=== PATIENT | male | born 1950 | race Caucasian/White ===

== ENCOUNTER 2019-09-18 11:03 | Inpatient (IN) | payer OTHER, SELFPAY ==
[2019-09-18] VITALS (12 sets, daily range): BP systolic 118–149; BP diastolic 51–80; PULSE 70–88; RESP 13–36; TEMP 36.3–36.6; O2SAT 91–97; BMI 34.9
--- NOTE | ~2019-09-18 | XR_ITS ---
EXAMINATION: XR chest 2V DATE: 09/21/2019 10:39 INDICATION: Pulmonary edema TECHNIQUE: PA and lateral views of the chest are obtained. COMPARISON: 09/18/2019 FINDINGS: The previously described interstitial opacities persist but have decreased. There is minima l airspace opacity of the right lung base. Small pleural effusions are present. There is no pneumotho rax. Cardiomegaly is noted. There is moderate thoracic spondylosis. IMPRESSION: 1. Cardiomegaly with improving pulmonary edema. 2. Improving right basilar airspace opacity, consistent with resolving atelectasis or pneumonia. Reviewed, dictated and finalized at location A. IMPRESSION: 1. Cardiomegaly with improving pulmonary edema. 2. Improving right basilar airspace opacity, consistent with resolving atelecta sis or pneumonia.
--- NOTE | ~2019-09-18 | XR_ITS ---
XR chest 2V DATE: 09/18/2019 11:52 INDICATION: Shortness of breath TECHNIQUE: AP and lateral views COMPARISON: 03/30/2018 portable AP chest FINDINGS: There is cardiomegaly. There is interval pulmonary vascular congestion and redistribution a nd there are bilateral lower lung infiltrates since 03/30/2018. There is mild prominence of the fissur es. Minimal blunting of the costophrenic angles suggests small pleural effusions. Diffuse idiopathic skeletal hyperostosis of the thoracic spine. IMPRESSION: Congestive heart failure and bilateral lower lung infiltrates; the infiltrates are most l ikely secondary to pulmonary edema. Pneumonia or less likely aspiration are additional considerations . Reviewed, dictated and finalized at location A. IMPRESSION: Congestive heart failure and bilateral lower lung infiltrates; the infiltrates are most likely secondary to pulmonary edema. Pneumonia or less lik fernando aspiration are additional considerations.
--- NOTE | 2019-09-18 11:12 | ED.SOB ---
HPI - SOB/Dyspnea General Chief Complaint: Shortness of Breath/Dyspnea Stated Complaint: sob Time Seen by Provider: 09/18/19 11:05 Source: patient and RN notes reviewed Mode of arrival: ambulatory Limitations: no limitations History of Present Illness HPI Narrative: Pt is a 69 y/o male who presents to the ED with c/o worsening SOB starting roughly 1 week ago. He notes that his symptoms are aggravated with laying flat. Pt states that he has also had rhinorrhea and a sore throat for the past several weeks. He currently reports mild bilateral pedal edema, but denies any CP, chest pressure, or other symptoms. Pt denies having any recent sick contacts. Pt states that he has a Hx of sleep apnea, noting that he uses a CPAP at night. MD elicited complaint: shortness of breath Onset (ago): week(s) (1) Timing: progressively worsening Exacerbating factors: lying flat Associated symptoms: other (rhinorrhea; sore throat; mild bilateral pedal edema) Related Data Home Medications Medication Instructions Recorded Confirmed doxycycline hyclate 09/18/19 09/18/19 hydrocodone-acetaminophen tablet 09/18/19 insulin glargine [Lantus Solostar unit SUBCUT 09/18/19 U-100 Insulin] lisinopril 09/18/19 metoprolol tartrate 09/18/19 simvastatin mg 09/18/19 Allergies Allergy/AdvReac Type Severity Reaction Status Date / Time No Known Allergies Allergy Verified 09/18/19 11:23 Review of Systems Review of Systems: All systems reviewed & are unremarkable except as noted in HPI and below ENT: Reports nasal discharge and Reports sore throat Cardiovascular: Cardiovascular: Denies chest pain, Reports pedal edema (mild bilateral pedal edema) and Denies other (chest pressure) Respiratory: Respiratory: Reports dyspnea PMFSH Past Medical History Medical History Arthritis Back pain CVA (cerebral vascular accident) Diabetes HLD (hyperlipidemia) HTN (hypertension) MICHELE on CPAP Retinal detachment Surgical History Surgical History Hx of cataract surgery Hx of eye surgery repair of retinal detachment Social History Social History Smoking status: Never smoker Alcohol intake: never Substance use: never Substance use type: does not use Spiritual care concerns: No Agree to blood products: Yes Exam Narrative: Exam Narrative: GENERAL: Uncomfortable-appearing, well-nourished, and in no acute distress. HEAD: Normocephalic, atraumatic. ENT: Nares clear, no rhinorrhea or epistaxis. Mucous membranes moist. NECK: Supple. CHEST: Bibasilar crackles with mild tachypnea. HEART: Regular rate and rhythm. Normal peripheral pulses. ABDOMEN: Soft, nontender, nondistended, normal active bowel sounds. EXTREMITIES: Normal range of motion. 2+ edema. SKIN: Warm, dry, no rash. NEURO: Alert and oriented x3. Course Consultations Consultation #1: Discussed case with [employer] to hospitalist, Meredith Sandra. Accepted admission. Date: 09/18/19 Time: 12:42 Vital Signs Vital signs: Vital Signs Temperature 97.9 F 09/18/19 11:05 Pulse Rate 71 09/18/19 11:05 Respiratory Rate 36 H 09/18/19 11:05 Blood Pressure 149/75 H 09/18/19 11:05 Pulse Oximetry 95 09/18/19 11:05 Temperature 97.3 F L 09/18/19 16:00 Pulse Rate 70 09/18/19 16:00 Respiratory Rate 22 H 09/18/19 16:00 Blood Pressure 131/69 09/18/19 16:00 Pulse Oximetry 97 09/18/19 16:00 MDM - SOB/Dyspnea Lab Data Result diagrams: 09/18/19 11:21 09/18/19 11:39 Labs: Lab Results 09/18/19 09/18/19 09/18/19 Range/Units 11:21 11:21 11:39 WBC 11.6 H (4.5-10.0) K/mm3 RBC 4.51 L (4.6-6.20) M/mm3 Hgb 14.2 (14.0-18.0) g/dL Hct 44.3 (42.0-52.0) % MCV 98.2 (80-100) fl MCH 31.5 (26-34) pg MCHC 32.1 (32-36) g/dl RDW 15.0 H (11.5-14.5) % Plt Count 152 (150
--- NOTE | 2019-09-18 11:31 | ECG_ITS ---
Measurements Intervals [place] Rate: 75 P: 24 KS: 217 QRS: -33 QRSD: 113 T: 129 QT: 404 QTc: 452 Interpretive Statements SINUS OR ECTOPIC ATRIAL RHYTHM WITH SINUS ARRHYTHMIA VENTRICULAR PREMATURE COMPLEX LEFT AXIS DEVIATION INTRAVENTRICULAR CONDUCTION DELAY POOR R WAVE PROGRESSION, ANTERIOR LEADS ST-T WAVE ABNORMALITY IN LATERAL LEADS- CONSIDER ISCHEMIA BASELINE ARTIFACT- II, III, AVR, V1, V3-V6 ABNORMAL ECG Electronically Signed On 09-18-2019 11:42:49 CDT by Roebrto Mcmahan D.O.
[2019-09-18 11:36] LABS: INR 1.2; Partial Thromboplastin Time 28.3 SECONDS (22.3-36.8); Prothrombin Time 15.3 Seconds (11.1-14.7)
[2019-09-18 11:49] LABS: Basophils Absolute Auto 0.1 K/mm3 (0.0-0.1); Basophils Percent Auto 0.6 % (0.2-1.2); Eosinophils Absolute Auto 0.1 K/mm3 (0-0.3); Eosinophils Percent Auto 1.2 % (0-4.4); Hematocrit 44.3 % (42.0-52.0); Hemoglobin 14.2 g/dL (14.0-18.0); Immature Granulocyte Absolute 0.08 K/mm3 (0.00-0.031); Immature Granulocyte Percent A 0.7 % (0-0.5); Lymphocytes Absolute Auto 1.34 K/mm3 (0.9-3.2); Lymphocytes Percent Auto 11.6 % (18.3-44.2); Mean Corpuscular HGB Conc 32.1 g/dl (32-36); Mean Corpuscular Hemoglobin 31.5 pg (26-34); Mean Corpuscular Volume 98.2 fl (80-100); Mean Platelet Volume 11.7 fl (7.4-10.4); Monocytes Absolute Auto 0.8 K/mm3 (0.1-0.6); Monocytes Percent Auto 6.8 % (2.6-8.5); Neutrophils Absolute Auto 9.2 K/mm3 (1.3-6.7); Neutrophils Percent Auto 79.1 % (45.5-73.1); Platelet Count Result 152 k/mm3 (150-375); Red Blood Count 4.51 M/mm3 (4.6-6.20); White Blood Count 11.6 K/mm3 (4.5-10.0)
[2019-09-18 12:01] LABS: Alanine Aminotransferase 44 U/L (4-50); Albumin Level 4.2 g/dL (3.5-5.1); Alkaline Phosphatase 70 U/L (38-126); Aspartate Amino Transferase 35 U/L (17-59); Bilirubin,Total 1.3 mg/dL (0.2-1.3); Blood Urea Nitrogen 29 mg/dL (9-20); Calcium 9.1 mg/dL (8.4-10.2); Carbon Dioxide 19 mmol/L (22-30); Chloride 109 mmol/L (98-107); Estimated CRCL calculation 62 ml/min; Estimated Glomerular Filt Rate 50; Glucose 174 mg/dL (75-110); Sodium 141 mmol/L (137-145)
[2019-09-18 12:15] LABS: NT Pro B Type Natriuretic Pept 7960 PG/ML (5-100); Troponin I 0.051 ng/mL (0.000-0.034)
[2019-09-18] MEDS: FUROSEMIDE INJ 40 MG/4 ML VIAL IV PUSH ×2 (14:04→20:44)
--- NOTE | 2019-09-18 14:10 | PC.NURSE ---
This patient, Danny Valero, was admitted to IMU Room 206-02. Patient/family oriented to hospital policies and general routines including ID bracelet, bed and alarms, visiting hours, pain management, procedures, bathroom and other care routines, personal items, smoking policy, room service/diet, and visiting hours. Valuables list has been completed. Information on how to activate the Rapid Response Team has been discussed. Patient/Family are encouraged to report perceived risks to care and to ask questions if they do not understand what they are told or what they should do.
[2019-09-18 14:23] LABS: Glucose Point of Care 127 (65-105)
[2019-09-18 15:36] LABS: Troponin I 0.051 ng/mL (0.000-0.034)
[2019-09-18 18:25] LABS: Troponin I 0.058 ng/mL (0.000-0.034)
--- NOTE | 2019-09-18 19:38 | PM.IMHP ---
H&P: HPI History of Present Illness Chief complaint: chf exacerbation/elevated troponin Narrative: This is a 69 year old obese Insulin dependent Diabetic male with known CKD and MICHELE on CPAP who presented to the hospital with a complaint of progressively worsening shortness of breath over the past few weeks. The patient has been short of breath and reports a nonsporadic cough even at rest. He denies any chest pain, fevers, or chills but he has had a sore throat. He denies any recent travel but does report that he spent over 5 hours at the airport 2 weeks ago when he was waiting for a family member to arrive. He denies any sick contacts. Associated symptoms include lower extremity swelling. The patient was evaluated in the ER today and found to be in acute heart failure with evidence of pulmonary edema and an elevated BNP. The patient was treated w/ IV lasix and admitted to the hospital for further care. On further questioning the patient denies any past medical history of heart disease, arrhythmias, or heart conditions. He denies any abdominal pain, nausea, vomiting, diarrhea, rectal bleeding, LE pain or redness, or black tarry stools. He is known to drink about 3-4 bottles of water daily and a couple of mountain dews and admits that he doesn't watch his diet well. He has not missed any of his home medications. Review of Systems Review of Systems: All systems reviewed & are unremarkable except as noted in HPI and below PMFSH Past Medical History Medical History Arthritis Back pain CVA (cerebral vascular accident) Diabetes HLD (hyperlipidemia) HTN (hypertension) MICHELE on CPAP Retinal detachment Surgical History Surgical History Hx of cataract surgery Hx of eye surgery repair of retinal detachment Family History Family History Sibling Family history of cardiovascular disease Family history of lung disease Father Family history of malignant neoplasm of uterus Social History Social History Smoking status: Never smoker Alcohol intake: never Substance use: never Substance use type: does not use Spiritual care concerns: No Agree to blood products: Yes Meds Home Medications and Allergies Home Medications Medication Instructions Recorded Confirmed Type doxycycline hyclate 100 mg PO BID 09/18/19 09/18/19 History hydrocodone-acetaminophen 10 - 325 tablet PO Q6-12H 09/18/19 09/18/19 History insulin glargine [Lantus Solostar 30 unit SUBCUT DAILY 09/18/19 09/18/19 History U-100 Insulin] lisinopril 5 mg PO DAILY 09/18/19 09/18/19 History metoprolol tartrate 50 mg PO BID 09/18/19 09/18/19 History simvastatin 20 mg PO HS 09/18/19 09/18/19 History Allergies Allergy/AdvReac Type Severity Reaction Status Date / Time No Known Allergies Allergy Verified 09/18/19 11:23 Vital Signs Vital Signs - 24 hr 09/18/19 11:05 09/18/19 11:28 09/18/19 12:15 Temperature 36.6 C Pulse Rate 71 73 73 Respiratory Rate 36 H 29 H 22 H Blood Pressure 149/75 H 131/77 139/79 Pulse Oximetry 95 95 96 09/18/19 13:00 09/18/19 14:03 09/18/19 14:10 Temperature 36.6 C Pulse Rate 73 70 70 Respiratory Rate 24 H 16 22 H Blood Pressure 129/73 139/80 138/76 Pulse Oximetry 95 97 93 09/18/19 16:00 09/18/19 19:37 Temperature 36.3 C L 36.6 C Pulse Rate 70 80 Respiratory Rate 22 H 20 Blood Pressure 131/69 118/51 L Pulse Oximetry 97 97 Exam Const: General: cooperative, alert, awake and tired appearing Nutritional Appearance: obese Orientation/consciousness: patient oriented x3 HENMT: Head: normal to inspection General nose exam: Normal external nose present Face and sinus: normal facial exam Mouth: Yes Normal oral and palatal mucosa present and Yes oropharynx normal Eyes: Pupils: E
[2019-09-18 21:05] LABS: Glucose Point of Care 106 (65-105)
[2019-09-19] VITALS (18 sets, daily range): BP systolic 109–136; BP diastolic 60–72; PULSE 67–87; RESP 14–20; TEMP 36.4–37.3; O2SAT 94–97
--- NOTE | 2019-09-19 | ECHO_ITS ---
Patient Info Name: Danny Valero Age: 69 years : 1950 Gender: Male Ht: 73 in Wt: 255 lbs BSA: 2.48 m2 HR: 78 bpm BP: 136 / 67 mmHg Heart Rhythm: Sinus Rhythm Technical Quality: Good Exam Date: 09/19/2019 11:34 AM Exam Location: [facility] Pulmonary Exam Room: [facility] Patient Status: Inpatient Admit Date: 09/18/2019 Staff Ordering Physician: Guerrero Krueger MD Data Security Consultant: Loyda Benitez RDCS Attending Provider: Guerrero Krueger MD Referring Physician: Evans ESCALERA; Exam Type: CA echo doppler color flow Study Info Indications - chf Complete two-dimensional, color flow and Doppler transthoracic echocardiogram is performed. Summary 1. Left ventricular chamber dimension is severely enlarged. 2. Left ventricular systolic function is severely reduced, estimated at 25-30%. 3. The left ventricular diastolic function is grade III diastolic dysfunction. 4. Akinetic basal inferior wall. 5. Left atrial chamber dimension is severely enlarged. 6. Right atrial chamber dimension is severely enlarged. 7. There is no aortic valve stenosis. 8. There is mild eccentric aortic valve regurgitation which may underestimate severity. 9. Fixed, focal calcification at the commissures between the right and non coronary cusps. 10. The mitral valve has thickened leaflets. 11. There is mild mitral valve regurgitation. 12. The mitral valve annulus is mildly calcified. 13. 1.1 x 0.6 cm fixed, circumscribed calcified echodensity on the atrial side of the anterior mitral valve leaflet unable to be further characterized. Differential includes calcified sub mitral apparatus, vegetation, mass unlikely thrombus. Clinical correlation advised. Consider EDGAR if clinically indicated. 14. There is mild tricuspid valve regurgitation. 15. Mild pulmonary hypertension, estimated pulmonary arterial systolic pressure is 40 mmHg. Left Ventricle Left ventricular chamber dimension is severely enlarged. Left ventricular systolic function is severely reduced, estimated at 25-30%. There is mildly increased left ventricular wall thickness. The left ventricular diastolic function is grade III diastolic dysfunction. Akinetic basal inferior wall. Right Ventricle Right ventricular chamber dimension is normal. Right ventricular systolic function is reduced. Left Atria Left atrial chamber dimension is severely enlarged. Right Atria Right atrial chamber dimension is severely enlarged. Aortic Valve The aortic valve is trileaflet. There is no aortic valve stenosis. There is mild eccentric aortic valve regurgitation which may underestimate severity. Fixed, focal calcification at the commissures between the right and non coronary cusps. Pulmonic Valve The pulmonic valve is not well visualized. Mitral Valve The mitral valve has thickened leaflets. There is mild mitral valve regurgitation. The mitral valve annulus is mildly calcified. 1.1 x 0.6 cm fixed, circumscribed calcified echodensity on the atrial side of the anterior mitral valve leaflet unable to be further characterized. Differential includes calcified sub mitral apparatus, vegetation, mass unlikely thrombus. Clinical correlation advised. Consider EDGAR if clinically indicated. Tricuspid Valve The tricuspid valve leaflets are normal. There is mild tricuspid valve regurgitation. Mild pulmonary hypertension, estimated pulmonary arterial systolic pressure is 40 mmHg. Pericardium/Pleural The pericardium appears normal.
[2019-09-19 01:37] LABS: Blood Urea Nitrogen 32 mg/dL (9-20); Calcium 9.3 mg/dL (8.4-10.2); Carbon Dioxide 24 mmol/L (22-30); Chloride 103 mmol/L (98-107); Estimated CRCL calculation 51 ml/min; Estimated Glomerular Filt Rate 40; Glucose 92 mg/dL (75-110); Magnesium 1.7 mg/dL (1.6-2.3); Potassium 3.9 mmol/L (3.4-5.0); Sodium 140 mmol/L (137-145)
[2019-09-19 05:03] LABS: Basophils Absolute Auto 0.1 K/mm3 (0.0-0.1); Basophils Percent Auto 0.5 % (0.2-1.2); Eosinophils Absolute Auto 0.3 K/mm3 (0-0.3); Eosinophils Percent Auto 2.1 % (0-4.4); Hematocrit 40.7 % (42.0-52.0); Hemoglobin 13.5 g/dL (14.0-18.0); Immature Granulocyte Absolute 0.05 K/mm3 (0.00-0.031); Immature Granulocyte Percent A 0.4 % (0-0.5); Lymphocytes Absolute Auto 1.55 K/mm3 (0.9-3.2); Lymphocytes Percent Auto 12.8 % (18.3-44.2); Mean Corpuscular HGB Conc 33.2 g/dl (32-36); Mean Corpuscular Hemoglobin 31.3 pg (26-34); Mean Corpuscular Volume 94.2 fl (80-100); Mean Platelet Volume 11.3 fl (7.4-10.4); Monocytes Absolute Auto 0.9 K/mm3 (0.1-0.6); Monocytes Percent Auto 7.5 % (2.6-8.5); Neutrophils Absolute Auto 9.3 K/mm3 (1.3-6.7); Neutrophils Percent Auto 76.7 % (45.5-73.1); Platelet Count Result 133 k/mm3 (150-375); Red Blood Count 4.32 M/mm3 (4.6-6.20); Red Cell Distribution Width 14.6 % (11.5-14.5); White Blood Count 12.1 K/mm3 (4.5-10.0)
[2019-09-19 05:15] LABS: Blood Urea Nitrogen 32 mg/dL (9-20); Calcium 9.1 mg/dL (8.4-10.2); Carbon Dioxide 26 mmol/L (22-30); Chloride 106 mmol/L (98-107); Estimated CRCL calculation 50 ml/min; Estimated Glomerular Filt Rate 40; Glucose 88 mg/dL (75-110); Potassium 3.7 mmol/L (3.4-5.0); Sodium 139 mmol/L (137-145)
[2019-09-19] MEDS: FUROSEMIDE INJ 40 MG/4 ML VIAL IV PUSH ×2 (08:07→20:47)
[2019-09-19 08:10] LABS: Glucose Point of Care 84 (65-105)
[2019-09-19] MEDS: METOPROLOL TARTRATE 50 MG TAB PO ×2 (09:07→16:58)
[2019-09-19] MEDS: ENOXAPARIN 40 MG/0.4 ML SYRINGE SUB-Q (09:49)
[2019-09-19 11:34] LABS: Glucose Point of Care 107 (65-105)
--- NOTE | 2019-09-19 12:41 | PM.IMPN ---
Progress Note: A&P Assessment and Plan (1) Congestive heart failure: Qualifiers: Heart failure chronicity: unspecified Heart failure type: unspecified Qualified Code(s): I50.9 - Heart failure, unspecified Code(s): I50.9 - Heart failure, unspecified Status: Acute Assessment and Plan: New onset acute heart failure type to be identified possible or acute systolic, Lasix IV BID, Monitor Is and Os, daily weights, fluid restricted, sodium prudent diet, TSH normal, Echocardiogram done this a.m.. Six beta-john and low-dose DHARMESH-inhibitor with the IV Lasix (2) Elevated troponin: Code(s): R79.89 - Other specified abnormal findings of blood chemistry Status: Acute Assessment and Plan: Breath or flat response. Most likely secondary to heart failure and no true ischemic event with no ischemia on EKG and no chest pain (3) CKD (chronic kidney disease): Qualifiers: Chronic kidney disease stage: stage 3 (moderate) Qualified Code(s): N18.3 - Chronic kidney disease, stage 3 (moderate) Code(s): N18.9 - Chronic kidney disease, unspecified Status: Chronic Assessment and Plan: Cr appears to be at baseline. Monitor renal function. Avoid nephrotoxic agents, renally dose medications. Creatinine was 1.6 in March 2018 (4) Diabetes: Qualifiers: Diabetes mellitus type: type 2 Diabetes mellitus long term care social worker insulin use: with long term care social worker use Diabetes mellitus complication status: with kidney complications Diabetes mellitus complication detail: with chronic kidney disease Chronic kidney disease stage: stage 3 (moderate) Qualified Code(s): E11.22 - Type 2 diabetes mellitus with diabetic chronic kidney disease; N18.3 - Chronic kidney disease, stage 3 (moderate); Z79.4 - termination clerk (current) use of insulin Code(s): E11.9 - Type 2 diabetes mellitus without complications Status: Chronic Assessment and Plan: Accuchecks, SSI Coverage, Continue home Insulin therapy. Hypoglycemic protocol. Changed to HS at 25 units since sugar running lower here (5) HLD (hyperlipidemia): Qualifiers: Hyperlipidemia type: unspecified Qualified Code(s): E78.5 - Hyperlipidemia, unspecified Code(s): E78.5 - Hyperlipidemia, unspecified Status: Chronic Assessment and Plan: Continue simvastatin. (6) HTN (hypertension): Qualifiers: Hypertension type: unspecified Qualified Code(s): I10 - Essential (primary) hypertension Code(s): I10 - Essential (primary) hypertension Status: Chronic Assessment and Plan: Stable. Monitor blood pressure. Continue metoprolol PO. And low-dose DHARMESH-inhibitor (7) MICHELE on CPAP: Code(s): G47.33 - Obstructive sleep apnea (adult) (pediatric); Z99.89 - Dependence on other enabling machines and devices Status: Chronic Assessment and Plan: Continue CPAP. (8) DVT prophylaxis: Code(s): Z29.9 - Encounter for prophylactic measures, unspecified Status: Acute Assessment and Plan: Lovenox Subjective Date/time seen: 09/19/19 12:41 Interval history: Date of visit 09/18. 69 year old hypertensive type 2 diabetic admitted with increasing cough and shortness of breath. Found to be in congestive heart failure. Was given IV Lasix and admitted. Feels better this a.m.. Evaluated in March 2018 with echo and stress test which which revealed no definite ischemia Ejection fraction and probably 50%.. Denies any chest pain. Exam Narrative: Exam Narrative: Blood pressure 136/66 pulse is 78 with occasional ectopic Lungs faint basilar crackles CV regular rate rhythm air no murmurs Abdomen is soft nontender no masses Extremities no edema distal pulses 2+ symmetrical And neuro alert pleasant cooperative no focal deficits Objective Data Vital Signs Vital Signs: Vital Signs - 24 hr 09/18/19 13:00 09/18/19 14:03 09/18/19 14:10 Temperature 36.6 C Pulse Rate
[2019-09-19] MEDS: lisinopriL 5 MG TABLET PO (13:52)
[2019-09-19 16:45] LABS: Glucose Point of Care 123 (65-105)
[2019-09-19 20:42] LABS: Glucose Point of Care 110 (65-105)
[2019-09-19] MEDS: carvediloL 12.5 MG TABLET PO (20:47)
[2019-09-19] MEDS: SIMVASTATIN 20 MG TABLET PO (20:47)
[2019-09-20] VITALS (16 sets, daily range): BP systolic 96–121; BP diastolic 45–65; PULSE 67–84; RESP 18–20; TEMP 36.3–36.7; O2SAT 93–100
[2019-09-20 05:23] LABS: Blood Urea Nitrogen 40 mg/dL (9-20); Carbon Dioxide 30 mmol/L (22-30); Chloride 100 mmol/L (98-107); Estimated CRCL calculation 44 ml/min; Estimated Glomerular Filt Rate 35; Glucose 100 mg/dL (75-110); Potassium 3.7 mmol/L (3.4-5.0); Sodium 139 mmol/L (137-145)
[2019-09-20] MEDS: lisinopriL 5 MG TABLET PO (08:24)
[2019-09-20] MEDS: FUROSEMIDE INJ 40 MG/4 ML VIAL IV PUSH ×2 (08:24→20:27)
[2019-09-20] MEDS: ENOXAPARIN 40 MG/0.4 ML SYRINGE SUB-Q (08:24)
[2019-09-20] MEDS: carvediloL 12.5 MG TABLET PO ×2 (08:24→20:27)
[2019-09-20] MEDS: SPIRONOLACTONE 25 MG TABLET PO (08:24)
[2019-09-20 09:57] LABS: Glucose Point of Care 88 (65-105)
[2019-09-20 11:43] LABS: Glucose Point of Care 145 (65-105)
--- NOTE | 2019-09-20 12:27 | PM.CNCAR ---
Assessment and Plan Assessment and plan (1) Congestive heart failure: Qualifiers: Heart failure chronicity: unspecified Heart failure type: unspecified Qualified Code(s): I50.9 - Heart failure, unspecified Code(s): I50.9 - Heart failure, unspecified Status: Acute Assessment and Plan: Acute decompensated systolic heart failure in setting of new diagnosis severe LV systolic dysfunction. Etiology unclear, however, given age and multiple risk factors CAD remains most likely explanation however nonischemic process cannot be entirely excluded. Patient is not exhibiting symptoms suggestive of an acute myocardial infarction and with a reasonably flat troponin trend most likely demand ischemia in setting of acute on chronic renal insufficiency. It is possible he has suffered relatively sound myocardial infarction within the past 2-4 weeks with resulting LV dysfunction and progressive symptomatic heart failure. - Optimize medical therapy carvedilol, spironolactone, lisinopril and continuation of IV Lasix. Patient appears to be nearing euvolemia, may change to IV Lasix daily. Monitor renal function and electrolytes closely. Accurate I/O's, daily weight, <2000mg Na intake. Check fasting lipid profile. -ASA 81mg daily -CPAP compliance. -Diabetes management deferred to primary service. - DVT prophylaxis. Lengthy discussion held with regards to new cardiomyopathy, potential ischemic and nonischemic etiologies, the importance of balancing risk versus benefit of invasive angiography for delineation of his coronary anatomy. Clinically, most likely explanation is underlying CAD, however, cannot entirely exclude a nonischemic process. Although patient has a somwhat suspect history of exposure to his [id number] who traveled to [place], [place] 2 weeks ago (he reports she has no sxs) and several hours waiting at an airport he is not exhibiting high risk symptoms suggestive of COVID-19 infection. Of note, there have been reports of patients presenting with acute CV decompensation, myocardial infarction, new cardiomyopathy, and heart failure as complications of COVID-19 infection. Defer testing to primary service per CDC guidelines but I would favor testing. (2) Cardiomyopathy: Code(s): I42.9 - Cardiomyopathy, unspecified Status: Acute Assessment and Plan: New, severe LV dysfunction with severe LV enlargement suggestive of a more acute on chronic process probable due to underlying severe CAD. We discussed heart failure management, the importance of and role medications, and further invasive workup as appropriate. We discussed the ischemic versus nonischemic process is including potential need for percutaneous intervention/ stent implantation versus CABG depending upon severity and extent of underlying CAD if noted on left heart catheterization. We also discussed given the current Coronavirus pandemic the need to defer elective procedures if possible for the safety of all involved. Further recommendations in this regard depending on patient's course and how he would like to proceed as well. We discussed risks, benefits, and alternatives to coronary angiography. We discussed the importance of ensuring stabilization of renal function prior to coronary angiography regardless. Provided pt continues to improve clinically stable symptoms would favor conservative management with medications and diuretics and defer coronary angiography as appropriate. -TSH 1.250 -Pro-BNP 7960 -CXR CHF bilateral lower lung infiltrates most likely pulmonary edema, less likely pneumonia per Radiology. -Called patient's massimo Delacruz at the request of the patient [phone] reviewing our discussion, recommendations, and plan of care. All questions answered to her satisfaction. She notes 1 week ago he developed severe coughing, they called PCP told he had bronchitis then breathing began to become quite labored, heavy breathi
[2019-09-20 14:13] LABS: CRP 1.4 mg/dL (<1.0)
[2019-09-20 14:18] LABS: Erythrocyte Sedimentation Rate 15 mm/hr (0-20)
--- NOTE | 2019-09-20 16:55 | PM.IMPN ---
Progress Note: A&P Assessment and Plan (1) Congestive heart failure: Qualifiers: Heart failure chronicity: unspecified Heart failure type: unspecified Qualified Code(s): I50.9 - Heart failure, unspecified Code(s): I50.9 - Heart failure, unspecified Status: Acute Assessment and Plan: New onset acute heart failure , acute systolic, Lasix IV decrease to qd with creatinine up to 1.9 ,, fluid restricted, sodium prudent diet, TSH normal, Echocardiogram EF 25-30% .. continue beta-john and low-dose DHARMESH-inhibitor with the IV Lasix and add aldactone but watch K with CRF repeat cxr am 09/20 (2) Elevated troponin: Code(s): R79.89 - Other specified abnormal findings of blood chemistry Status: Acute Assessment and Plan: Breath or flat response. Most likely secondary to heart failure and no true ischemic event with no ischemia on EKG and no chest pain (3) CKD (chronic kidney disease): Qualifiers: Chronic kidney disease stage: stage 3 (moderate) Qualified Code(s): N18.3 - Chronic kidney disease, stage 3 (moderate) Code(s): N18.9 - Chronic kidney disease, unspecified Status: Chronic Assessment and Plan: Cr up to 1.9 today so decrease lasix to qd and moniter Creatinine was 1.6 in March 2018 (4) Diabetes: Qualifiers: Diabetes mellitus type: type 2 Diabetes mellitus senior care insulin use: with terminal operations manager use Diabetes mellitus complication status: with kidney complications Diabetes mellitus complication detail: with chronic kidney disease Chronic kidney disease stage: stage 3 (moderate) Qualified Code(s): E11.22 - Type 2 diabetes mellitus with diabetic chronic kidney disease; N18.3 - Chronic kidney disease, stage 3 (moderate); Z79.4 - custodial (current) use of insulin Code(s): E11.9 - Type 2 diabetes mellitus without complications Status: Chronic Assessment and Plan: Accuchecks, SSI Coverage, Continue home Insulin therapy. Hypoglycemic protocol. Changed to HS at 25 units since sugar running lower here, FBS 100 (5) HLD (hyperlipidemia): Qualifiers: Hyperlipidemia type: unspecified Qualified Code(s): E78.5 - Hyperlipidemia, unspecified Code(s): E78.5 - Hyperlipidemia, unspecified Status: Chronic Assessment and Plan: Continue simvastatin. (6) HTN (hypertension): Qualifiers: Hypertension type: unspecified Qualified Code(s): I10 - Essential (primary) hypertension Code(s): I10 - Essential (primary) hypertension Status: Chronic Assessment and Plan: Stable. Monitor blood pressure. changed metoprolol to coreg. And low-dose DHARMESH-inhibitor (7) MICHELE on CPAP: Code(s): G47.33 - Obstructive sleep apnea (adult) (pediatric); Z99.89 - Dependence on other enabling machines and devices Status: Chronic Assessment and Plan: Continue CPAP. (8) DVT prophylaxis: Code(s): Z29.9 - Encounter for prophylactic measures, unspecified Status: Acute Assessment and Plan: Lovenox Subjective Date/time seen: 09/20/19 16:55 Interval history: Date of visit 09/19. 69 year old hypertensive type 2 diabetic admitted with increasing cough and shortness of breath. Found to be in congestive heart failure. Was given IV Lasix and admitted. Slept good last pm and breathing better.. Evaluated in March 2018 with echo and stress test which which revealed no definite ischemia Ejection fraction and probably 50%.. Denies any chest pain. Exam Narrative: Exam Narrative: Blood pressure 120/56 pulse is 74 with occasional ectopic Lungs clear CV regular rate rhythm air no murmurs Abdomen is soft nontender no masses Extremities no edema distal pulses 2+ symmetrical And neuro alert pleasant cooperative no focal deficits Objective Data Vital Signs Vital Signs: Vital Signs - 24 hr 09/19/19 16:58 09/19/19 17:59 09/19/19 19:24 Temperature 36.4 C Pulse Rate 7
[2019-09-20 16:59] LABS: Glucose Point of Care 126 (65-105)
[2019-09-20 20:20] LABS: Glucose Point of Care 161 (65-105)
[2019-09-20] MEDS: INSULIN GLARGINE (*BKC) 100 UNITS/ML 25 UNITS SUB-Q (20:28)
[2019-09-20] MEDS: SIMVASTATIN 20 MG TABLET PO (20:40)
[2019-09-21] VITALS (14 sets, daily range): BP systolic 106–124; BP diastolic 57–72; PULSE 68–97; RESP 15–20; TEMP 36.1–36.7; O2SAT 95–99
[2019-09-21 07:56] LABS: Glucose Point of Care 120 (65-105)
[2019-09-21 08:26] LABS: Blood Urea Nitrogen 44 mg/dL (9-20); Calcium 8.7 mg/dL (8.4-10.2); Carbon Dioxide 31 mmol/L (22-30); Chloride 100 mmol/L (98-107); Estimated CRCL calculation 48 ml/min; Estimated Glomerular Filt Rate 38; Glucose 117 mg/dL (75-110); Potassium 3.8 mmol/L (3.4-5.0); Sodium 139 mmol/L (137-145)
[2019-09-21] MEDS: ENOXAPARIN 40 MG/0.4 ML SYRINGE SUB-Q (08:54)
[2019-09-21] MEDS: lisinopriL 5 MG TABLET PO (08:54)
[2019-09-21] MEDS: carvediloL 12.5 MG TABLET PO ×2 (08:54→20:23)
[2019-09-21] MEDS: ASPIRIN 81 MG ENTERIC TABLET PO (08:54)
[2019-09-21] MEDS: SPIRONOLACTONE 25 MG TABLET PO (08:54)
[2019-09-21] MEDS: FUROSEMIDE INJ 40 MG/4 ML VIAL IV PUSH (08:54)
[2019-09-21] MEDS: POTASSIUM CHLORIDE 20 MEQ TABLET PO (10:03)
--- NOTE | 2019-09-21 10:32 | PM.PNCARD ---
Progress Note: A&P Assessment and Plan (1) Congestive heart failure: Qualifiers: Heart failure chronicity: unspecified Heart failure type: unspecified Qualified Code(s): I50.9 - Heart failure, unspecified Code(s): I50.9 - Heart failure, unspecified Status: Acute Assessment and Plan: Acute decompensated systolic heart failure in setting of new diagnosis severe LV systolic dysfunction. Etiology unclear. He is not exhibiting symptoms suggestive of an acute myocardial infarction and with a reasonably flat troponin trend most likely demand ischemia in setting of acute on chronic renal insufficiency. It is possible he has suffered relatively sound myocardial infarction within the past 2-4 weeks with resulting LV dysfunction and progressive symptomatic heart failure. Evaluated in March 2018 with echo and stress test which which revealed no definite ischemia. Ejection fraction and probably 50%. Clinically improved. Euvolemic. -Continue carvedilol, spironolactone, lisinopril and p.o. Lasix daily. Monitor renal function and electrolytes closely. Blood pressure a little soft so will do up titration as an outpatient if able. Sodium intake less than 2000 mg per day. -ASA 81mg daily -CPAP compliance. -Diabetes management deferred to primary service. (2) Cardiomyopathy: Code(s): I42.9 - Cardiomyopathy, unspecified Status: Acute Assessment and Plan: New, severe LV dysfunction with severe LV enlargement suggestive of a more acute on chronic process probable due to underlying severe CAD. Dr. Barahona discussed at length deferring any invasive procedures if clinically improved. Clinically improved. Chest x-ray pending Medications as above. (3) Elevated troponin: Code(s): R79.89 - Other specified abnormal findings of blood chemistry Status: Acute Assessment and Plan: Troponins flat. His presentation not highly suggestive of acute coronary syndrome however cannot exclude underlying CAD given new severe LV dysfunction, akinetic inferior wall and multiple risk factors for CAD. -ASA 81mg daily. -Check fasting lipid panel. (4) Mitral valve disorder: Code(s): I05.9 - Rheumatic mitral valve disease, unspecified Status: Acute Assessment and Plan: Dr. Barahona discussed in detail his echocardiogram and associated mitral valve findings. His clinical picture is not highly suggestive of endocarditis. CRP 1.4. ESR 15. Blood cultures x2. Pending. Discussed with Dr. Barahona, transesophageal echocardiogram for further evaluation as clinically indicated. Discussed with Dr Chicas. Given the likelyhood that an outpatient proceedure would be postponed for an unknown amount of time would wait at [facility] for the preliminary results of blood cultures. If negative can be discharged. If positive would proceed with EDGAR. Will keep NPO after midnight. (5) HTN (hypertension): Qualifiers: Hypertension type: unspecified Qualified Code(s): I10 - Essential (primary) hypertension Code(s): I10 - Essential (primary) hypertension Status: Chronic Assessment and Plan: Soft at times. Medications as above. (6) Diabetes: Qualifiers: Chronic kidney disease stage: stage 3 (moderate) Diabetes mellitus complication detail: with chronic kidney disease Diabetes mellitus complication status: with kidney complications Diabetes mellitus computer terminal operator insulin use: with computer terminal operator use Diabetes mellitus type: type 2 Qualified Code(s): E11.22 - Type 2 diabetes mellitus with diabetic chronic kidney disease; N18.3 - Chronic kidney disease, stage 3 (moderate); Z79.4 - predatory animal exterminator (current) use of insulin Code(s): E11.9 - Type 2 diabetes mellitus without complications Status: Chronic Assessment and Plan:
[2019-09-21 11:45] LABS: Glucose Point of Care 119 (65-105)
--- NOTE | 2019-09-21 14:55 | PM.IMPN ---
Progress Note: A&P Assessment and Plan (1) Congestive heart failure: Qualifiers: Heart failure chronicity: unspecified Heart failure type: unspecified Qualified Code(s): I50.9 - Heart failure, unspecified Code(s): I50.9 - Heart failure, unspecified Status: Acute Assessment and Plan: New onset acute heart failure , acute systolic, Lasix IV and will change to po since appears euvolemic and bun and creatinine. ,, , TSH normal, Echocardiogram EF 25-30% .. continue beta-john and low-dose DHARMESH-inhibitor with the Lasix and added aldactone but watch K with CRF repeat cxr today 09/20, resolving pulmonary edema (2) Elevated troponin: Code(s): R79.89 - Other specified abnormal findings of blood chemistry Status: Acute Assessment and Plan: flat response. Most likely secondary to heart failure and no true ischemic event with no ischemia on EKG and no chest pain (3) CKD (chronic kidney disease): Qualifiers: Chronic kidney disease stage: stage 3 (moderate) Qualified Code(s): N18.3 - Chronic kidney disease, stage 3 (moderate) Code(s): N18.9 - Chronic kidney disease, unspecified Status: Chronic Assessment and Plan: Cr stable at 1.8 today and will change to po lasix and moniter Creatinine was 1.6 in March 2018 (4) Diabetes: Qualifiers: Chronic kidney disease stage: stage 3 (moderate) Diabetes mellitus complication detail: with chronic kidney disease Diabetes mellitus complication status: with kidney complications Diabetes mellitus oil heaterman insulin use: with [facility] use Diabetes mellitus type: type 2 Qualified Code(s): E11.22 - Type 2 diabetes mellitus with diabetic chronic kidney disease; N18.3 - Chronic kidney disease, stage 3 (moderate); Z79.4 - halfway (current) use of insulin Code(s): E11.9 - Type 2 diabetes mellitus without complications Status: Chronic Assessment and Plan: Accuchecks, SSI Coverage, Continue home Insulin therapy. Hypoglycemic protocol. Changed to HS at 25 units since sugar running lower here, FBS 117 today (5) HLD (hyperlipidemia): Qualifiers: Hyperlipidemia type: unspecified Qualified Code(s): E78.5 - Hyperlipidemia, unspecified Code(s): E78.5 - Hyperlipidemia, unspecified Status: Chronic Assessment and Plan: Continue simvastatin. (6) HTN (hypertension): Qualifiers: Hypertension type: unspecified Qualified Code(s): I10 - Essential (primary) hypertension Code(s): I10 - Essential (primary) hypertension Status: Chronic Assessment and Plan: Stable. Monitor blood pressure. changed metoprolol to coreg. And continue low-dose DHARMESH-inhibitor (7) MICHELE on CPAP: Code(s): G47.33 - Obstructive sleep apnea (adult) (pediatric); Z99.89 - Dependence on other enabling machines and devices Status: Chronic Assessment and Plan: Continue CPAP. (8) DVT prophylaxis: Code(s): Z29.9 - Encounter for prophylactic measures, unspecified Status: Acute Assessment and Plan: Lovenox (9) Mitral valve disorder: Code(s): I05.9 - Rheumatic mitral valve disease, unspecified Status: Acute Assessment and Plan: ? of vegetation on TT echo but no fever and normal ESR. BC still pending. IF + , EDGAR echo to follow If negative d/c and follow up with card. Recheck wbc in am Subjective Date/time seen: 09/21/19 14:55 Interval history: Date of visit 09/20. 69 year old hypertensive type 2 diabetic admitted with increasing cough and shortness of breath. Found to be in congestive heart failure. Was given IV Lasix and admitted. Slept good last pm and breathing better.. Evaluated in March 2018 with echo and stress test which which revealed no definite ischemia Ejection fraction and probably 50%.. Denies any chest pain. Now EF 25% and some lesion on mitral valve Exam Narrative: Exam Narrative: Blood pressure 12
[2019-09-21 16:14] LABS: Glucose Point of Care 145 (65-105)
[2019-09-21] MEDS: SIMVASTATIN 20 MG TABLET PO (20:23)
[2019-09-21] MEDS: INSULIN GLARGINE (*BKC) 100 UNITS/ML 25 UNITS SUB-Q (20:24)
[2019-09-21 21:03] LABS: Glucose Point of Care 156 (65-105)
[2019-09-22] VITALS (8 sets, daily range): BP systolic 111–113; BP diastolic 49–62; PULSE 66–78; RESP 20; TEMP 35.9–36.6; O2SAT 99–100
[2019-09-22 05:00] LABS: Basophils Absolute Auto 0.1 K/mm3 (0.0-0.1); Basophils Percent Auto 0.8 % (0.2-1.2); Eosinophils Absolute Auto 0.3 K/mm3 (0-0.3); Eosinophils Percent Auto 2.9 % (0-4.4); Hematocrit 44.1 % (42.0-52.0); Hemoglobin 14.6 g/dL (14.0-18.0); Immature Granulocyte Absolute 0.04 K/mm3 (0.00-0.031); Immature Granulocyte Percent A 0.4 % (0-0.5); Immature Platelet Fraction Pct 5.4 % (0.9-11.2); Lymphocytes Absolute Auto 1.48 K/mm3 (0.9-3.2); Lymphocytes Percent Auto 16.4 % (18.3-44.2); Mean Corpuscular HGB Conc 33.1 g/dl (32-36); Mean Corpuscular Hemoglobin 31.6 pg (26-34); Mean Corpuscular Volume 95.5 fl (80-100); Mean Platelet Volume 11.3 fl (7.4-10.4); Monocytes Absolute Auto 0.9 K/mm3 (0.1-0.6); Monocytes Percent Auto 9.5 % (2.6-8.5); Neutrophils Absolute Auto 6.3 K/mm3 (1.3-6.7); Platelet Count Result 135 k/mm3 (150-375); Red Blood Count 4.62 M/mm3 (4.6-6.20); Red Cell Distribution Width 14.6 % (11.5-14.5)
[2019-09-22 05:12] LABS: Blood Urea Nitrogen 41 mg/dL (9-20); Calcium 8.9 mg/dL (8.4-10.2); Carbon Dioxide 26 mmol/L (22-30); Chloride 104 mmol/L (98-107); Cholesterol 103 mg/dL (0-200); Estimated CRCL calculation 51 ml/min; Estimated Glomerular Filt Rate 40; Glucose 106 mg/dL (75-110); HDL Direct 24 mg/dL; Magnesium 2.4 mg/dL (1.6-2.3); Potassium 3.8 mmol/L (3.4-5.0); Sodium 137 mmol/L (137-145); Triglycerides 101 mg/dL (<150)
[2019-09-22 05:22] LABS: LDL Cholesterol Direct 57 mg/dL
[2019-09-22 07:57] LABS: Glucose Point of Care 99 (65-105)
[2019-09-22] MEDS: ENOXAPARIN 40 MG/0.4 ML SYRINGE SUB-Q (08:25)
[2019-09-22] MEDS: ASPIRIN 81 MG ENTERIC TABLET PO (08:25)
[2019-09-22] MEDS: carvediloL 12.5 MG TABLET PO (08:25)
[2019-09-22] MEDS: SPIRONOLACTONE 25 MG TABLET PO (08:25)
[2019-09-22] MEDS: FUROSEMIDE 40 MG TABLET PO (08:25)
[2019-09-22] MEDS: lisinopriL 5 MG TABLET PO (08:25)
--- NOTE | 2019-09-22 10:26 | PM.PNCARD ---
Progress Note: A&P Assessment and Plan (1) Congestive heart failure: Qualifiers: Heart failure chronicity: unspecified Heart failure type: unspecified Qualified Code(s): I50.9 - Heart failure, unspecified Code(s): I50.9 - Heart failure, unspecified Status: Acute Assessment and Plan: Acute decompensated systolic heart failure in setting of new diagnosis severe LV systolic dysfunction. Etiology unclear. He is not exhibiting symptoms suggestive of an acute myocardial infarction and with a reasonably flat troponin trend most likely demand ischemia in setting of acute on chronic renal insufficiency. It is possible he has suffered relatively sound myocardial infarction within the past 2-4 weeks with resulting LV dysfunction and progressive symptomatic heart failure. Evaluated in March 2018 with echo and stress test which which revealed no definite ischemia. Ejection fraction and probably 50%. Clinically improved. Euvolemic. Okay for discharge -Continue carvedilol, spironolactone, lisinopril, aspirin and statin. Blood pressure a little soft so will do up titration as an outpatient. Sodium intake less than 2000 mg per day. -Will reduce furosemide to 20 mg daily as he is getting a bit prerenal. -CPAP compliance. --counseled the patient and his regarding CHF management, when to call, etcetera. Daily weights, low-sodium diet, activity as tolerated, stop if winded or dizzy, call of weight gain, and BLOOM, edema etc.. Reviewed medications, likely titration over the next few months, follow-up etcetera. (2) Cardiomyopathy: Code(s): I42.9 - Cardiomyopathy, unspecified Status: Acute Assessment and Plan: New, severe LV dysfunction with severe LV enlargement suggestive of a more acute on chronic process probable due to underlying severe CAD. Dr. Barahona discussed at length deferring any invasive procedures if clinically improved. Clinically improved. Medications as above. (3) Elevated troponin: Code(s): R79.89 - Other specified abnormal findings of blood chemistry Status: Acute Assessment and Plan: Troponins flat. His presentation not highly suggestive of acute coronary syndrome however cannot exclude underlying CAD given new severe LV dysfunction, akinetic inferior wall and multiple risk factors for CAD. -ASA 81mg daily. -cholesterol was 103 with LDL of 57 (4) Mitral valve disorder: Code(s): I05.9 - Rheumatic mitral valve disease, unspecified Status: Acute Assessment and Plan: Dr. Barahona discussed in detail his echocardiogram and associated mitral valve findings. His clinical picture is not highly suggestive of endocarditis. CRP 1.4. ESR 15. WBC normal. blood cultures x2 negative so far, so will cancel the EDGAR. May have been some calcium on the valve or artifact. (5) HTN (hypertension): Qualifiers: Hypertension type: unspecified Qualified Code(s): I10 - Essential (primary) hypertension Code(s): I10 - Essential (primary) hypertension Status: Chronic Assessment and Plan: Soft at times. Medications as above. (6) Diabetes: Qualifiers: Diabetes mellitus type: type 2 Diabetes mellitus bed bug exterminator insulin use: with bed bug exterminator use Diabetes mellitus complication status: with kidney complications Diabetes mellitus complication detail: with chronic kidney disease Chronic kidney disease stage: stage 3 (moderate) Qualified Code(s): E11.22 - Type 2 diabetes mellitus with diabetic chronic kidney disease; N18.3 - Chronic kidney disease, stage 3 (moderate); Z79.4 - exterminator termite (current) use of insulin Code(s): E11.9 - Type 2 diabetes mellitus without complications Status: Chronic Assessment and Plan: Per primary service
--- NOTE | 2019-09-22 11:13 | PM.DS ---
DS: Diagnosis Admitting Diagnosis Admitting Diagnosis: Heart failure, unspecified Discharge Diagnosis (1) Congestive heart failure: Qualifiers: Heart failure chronicity: unspecified Heart failure type: unspecified Qualified Code(s): I50.9 - Heart failure, unspecified Code(s): I50.9 - Heart failure, unspecified Status: Acute Assessment and Plan: New onset acute heart failure , acute systolic, Lasix IV and will change to po since appears euvolemic and bun and creatinine. ,, , TSH normal, Echocardiogram EF 25-30% .. continue beta-john and low-dose DHARMESH-inhibitor with the Lasix and added aldactone but watch K with CRF repeat cxr 09/20, resolving pulmonary edema Home 09/21. (2) Elevated troponin: Code(s): R79.89 - Other specified abnormal findings of blood chemistry Status: Acute Assessment and Plan: flat response. Most likely secondary to heart failure and no true ischemic event with no ischemia on EKG and no chest pain (3) CKD (chronic kidney disease): Qualifiers: Chronic kidney disease stage: stage 3 (moderate) Qualified Code(s): N18.3 - Chronic kidney disease, stage 3 (moderate) Code(s): N18.9 - Chronic kidney disease, unspecified Status: Chronic Assessment and Plan: Cr stable at 1.7 today and will change to po lasix and moniter Creatinine was 1.6 in March 2018 (4) Diabetes: Qualifiers: Diabetes mellitus type: type 2 Diabetes mellitus director long term care insulin use: with director long term care use Diabetes mellitus complication status: with kidney complications Diabetes mellitus complication detail: with chronic kidney disease Chronic kidney disease stage: stage 3 (moderate) Qualified Code(s): E11.22 - Type 2 diabetes mellitus with diabetic chronic kidney disease; N18.3 - Chronic kidney disease, stage 3 (moderate); Z79.4 - director long term care (current) use of insulin Code(s): E11.9 - Type 2 diabetes mellitus without complications Status: Chronic Assessment and Plan: Accuchecks, SSI Coverage, Continue home Insulin therapy. Hypoglycemic protocol. Changed to HS at 25 units since sugar running lower here, FBS 117 today (5) HLD (hyperlipidemia): Qualifiers: Hyperlipidemia type: unspecified Qualified Code(s): E78.5 - Hyperlipidemia, unspecified Code(s): E78.5 - Hyperlipidemia, unspecified Status: Chronic Assessment and Plan: Continue simvastatin. (6) HTN (hypertension): Qualifiers: Hypertension type: unspecified Qualified Code(s): I10 - Essential (primary) hypertension Code(s): I10 - Essential (primary) hypertension Status: Chronic Assessment and Plan: Stable. Monitor blood pressure. changed metoprolol to coreg. And continue low-dose DHARMESH-inhibitor (7) MICHELE on CPAP: Code(s): G47.33 - Obstructive sleep apnea (adult) (pediatric); Z99.89 - Dependence on other enabling machines and devices Status: Chronic Assessment and Plan: Continue CPAP. (8) DVT prophylaxis: Code(s): Z29.9 - Encounter for prophylactic measures, unspecified Status: Acute Assessment and Plan: Lovenox (9) Mitral valve disorder: Code(s): I05.9 - Rheumatic mitral valve disease, unspecified Status: Acute Assessment and Plan: Possible vegetation on TT echo but no fever and normal ESR. BC still negative as of 09/21. DS: Summary Hospital Course Reason for hospitalization: Admitted with increasing dyspnea and mild ankle swelling Hospital Course: Admitted with increasing dyspnea and mild ankle swelling. Echocardiogram showed low ejection fraction at 25-30%. Chest x-ray with pulmonary vascular congestion. Troponins mildly elevated but flat response. EKG without ischemic changes. Responded well to diuresis with IV furosemide which was transition to p.o. on day prior to discharge. Tolerated low-dose beta-john and DHARMESH-inhibitor. By day of discharge
[2019-09-22 12:11] LABS: Glucose Point of Care 126 (65-105)
== END 2019-09-22 12:40 | disposition home or self-care (01) | DRG 291 ==
LOC: ANHED 12:53 → ANHIMU 13:28
PROVIDERS: Family Medicine; Internal Medicine Cardiovascular Disease; Nurse Practitioner Adult Health; Admitting Provider Internal Medicine; Emergency Provider Emergency Medicine; PCP Student in an Organized Health Care Education/Training Program; Visit Provider Internal Medicine
DX: I13.0 Hypertensive heart and chronic kidney disease with heart failure and stage 1 through stage 4 chronic kidney disease, or unspecified chronic kidney disease (principal); I50.21 Acute systolic (congestive) heart failure; I50.9 Heart failure, unspecified; N18.3 Chronic kidney disease, stage 3 (moderate); E11.22 Type 2 diabetes mellitus with diabetic chronic kidney disease; R79.89 Other specified abnormal findings of blood chemistry; E78.5 Hyperlipidemia, unspecified; G47.33 Obstructive sleep apnea (adult) (pediatric); I05.9 Rheumatic mitral valve disease, unspecified; M19.90 Unspecified osteoarthritis, unspecified site; I42.9 Cardiomyopathy, unspecified; Z79.4 Long term (current) use of insulin; Z86.73 Personal history of transient ischemic attack (TIA), and cerebral infarction without residual deficits; Z79.82 Long term (current) use of aspirin
CPT/HCPCS: 36415; 71046; 80048; 80053; 80061; 83735; 83880; 84443; 84484; 85025; 85055; 85610; 85652; 85730; 86140; 87040; 87804; 93005; 93306; 96374; 99285; A9270; J1650; J1815; J1940

== ENCOUNTER 2019-09-28 09:26 | Outpatient (CLI) | payer OTHER, SELFPAY ==
[2019-09-28 10:31] LABS: Blood Urea Nitrogen 28 mg/dL (9-20); Calcium 9.1 mg/dL (8.4-10.2); Carbon Dioxide 25 mmol/L (22-30); Chloride 101 mmol/L (98-107); Estimated Glomerular Filt Rate 55; Glucose 173 mg/dL (75-110); Potassium 4.8 mmol/L (3.4-5.0); Sodium 134 mmol/L (137-145)
== END 2019-09-28 09:27 | disposition home or self-care (01) ==
PROVIDERS: PCP Student in an Organized Health Care Education/Training Program; Visit Provider Nurse Practitioner Adult Health
DX: I42.9 Cardiomyopathy, unspecified (principal); N18.9 Chronic kidney disease, unspecified
CPT/HCPCS: 36415; 80048; 83735

== ENCOUNTER 2019-09-30 12:21 | Emergency (ER) | payer OTHER, SELFPAY ==
--- NOTE | ~2019-09-30 | XR_ITS ---
EXAMINATION: XR chest 2V DATE: 09/30/2019 12:59 INDICATION: Palpitations. TECHNIQUE: Frontal and lateral views of the chest were obtained. COMPARISON: Chest 2 views 09/21/2019, CT abdomen and pelvis 03/31/2018 FINDINGS: There is mild atelectasis in the lower lung zones. No pleural effusion or pneumothorax. The heart size is normal. IMPRESSION: 1. Mild atelectasis in the lower lung zones. Reviewed, dictated and finalized at location A.
--- NOTE | 2019-09-30 12:22 | ECG_ITS ---
Measurements Intervals [place] Rate: 89 P: DE: 0 QRS: -39 QRSD: 109 T: 131 QT: 357 QTc: 434 Interpretive Statements ATRIAL FIBRILLATION VENTRICULAR PREMATURE COMPLEXES LEFT AXIS DEVIATION INTRAVENTRICULAR CONDUCTION DELAY BORDERLINE R WAVE PROGRESSION, ANTERIOR LEADS ST-T WAVE ABNORMALITY IN LATERAL LEADS- CONSIDER ISCHEMIA BASELINE ARTIFACT- I, II, AVR ABNORMAL ECG Electronically Signed On 09-30-2019 12:59:23 CDT by Roberto Mcmahan D.O.
--- NOTE | 2019-09-30 12:35 | ED_ITS ---
I attest that this documentation has been prepared under the direction and in the presence of Eric Rico DO. Drake, Brett A., Scribe 09/30/19;12:37 HPI - Arrhythmia/Palpitations General Chief Complaint: Arrhythmia/Palpitations Stated Complaint: heart is not beating right Time Seen by Provider: 09/30/19 12:24 Source: patient and RN notes reviewed Mode of arrival: ambulatory Limitations: no limitations History of Present Illness HPI narrative: Had EKG this morning at Dr. Gold?s office and sent here for fluttering No SOB No palpitations, CP Hx of A-Fib Was hospitalized here for CHF Related Data Home Medications Medication Instructions Recorded Confirmed Lantus Solostar U-100 Insulin 30 unit SUBCUT DAILY 09/18/19 09/18/19 lisinopril 5 mg PO DAILY 09/18/19 09/18/19 simvastatin 20 mg PO HS 09/18/19 09/18/19 Allergies Allergy/AdvReac Type Severity Reaction Status Date / Time No Known Allergies Allergy Verified 09/18/19 11:23 [facility] Social History Social History Smoking status: Never smoker Alcohol intake: never Substance use: never Substance use type: does not use Spiritual care concerns: No Agree to blood products: Yes MDM - Arrhythmia/Palpitations ECG Data EKG #1: Interpretation: Jordin tucker 89, left axis deviation, interventricular conduction delay, nonspecific ST changes inferior leads Discharge Plan Discharge Prescriptions: No Action simvastatin 20 mg tablet 20 mg PO HS RF: 0 lisinopril 5 mg tablet 5 mg PO DAILY RF: 0 Lantus Solostar U-100 Insulin 100 unit/mL (3 mL) insulin pen 30 unit SUBCUT DAILY RF: 0 acetaminophen [Mapap (acetaminophen)] 325 mg Tablet 650 mg PO Q4H PRN (Reason: Mild Pain (1-3) Or Fever) Qty: 6 RF: 0 carvedilol [Coreg] 12.5 mg Tablet 12.5 mg PO Q12HR Qty: 6 RF: 0 aspirin 81 mg Tablet,Delayed Release (Dr/Ec) 81 mg PO QAM Qty: 30 RF: 0 spironolactone 25 mg Tablet 25 mg PO QAM Qty: 30 RF: 0 furosemide 20 mg Tablet 20 mg PO DAILY Qty: 30 RF: 0 I personally performed the services described in this documentation. All medical record entries made by the scribe were at my direction and in my presence. I have reviewed the chart and discharge instructions and agree that the record reflects my personal performance and is accurate and complete. Eric Rico, 09/30/19;[id number]
[2019-09-30 12:37] VITALS: BP 126/76; PULSE 95; RESP 21; TEMP 36.9; O2SAT 98
--- NOTE | 2019-09-30 13:18 | ED.GENADULT ---
HPI - General Adult General Chief complaint: Arrhythmia/Palpitations Stated complaint: heart is not beating right Time Seen by Provider: 09/30/19 12:24 Source: patient and RN notes reviewed Mode of arrival: ambulatory Limitations: no limitations History of Present Illness HPI narrative: Pt is a 69 y/o male with a Hx of A-Fib, who presents to the ED with c/o abnormal EKG. He notes that he was recently hospitalized in Had EKG this morning at Dr. Gold?s office and sent here for fluttering No SOB No palpitations, CP Hx of A-Fib Was hospitalized here for CHF MD complaint: Abnormal EKG Related Data Home Medications Medication Instructions Recorded Confirmed Lantus Solostar U-100 Insulin 30 unit SUBCUT DAILY 09/18/19 09/30/19 lisinopril 5 mg PO DAILY 09/18/19 09/30/19 simvastatin 20 mg PO HS 09/18/19 09/30/19 Allergies Allergy/AdvReac Type Severity Reaction Status Date / Time No Known Allergies Allergy Verified 09/30/19 12:43 [facility] Social History Social History Smoking status: Never smoker Alcohol intake: never Substance use: never Substance use type: does not use Gender identity (if verbalized by the patient): Male Spiritual care concerns: No Agree to blood products: Yes Course Vital Signs Vital signs: Vital Signs Temperature 36.9 C 09/30/19 12:37 Pulse Rate 95 09/30/19 12:37 Respiratory Rate 21 H 09/30/19 12:37 Blood Pressure 126/76 09/30/19 12:37 Pulse Oximetry 98 09/30/19 12:37 Temperature 36.9 C 09/30/19 12:37 Pulse Rate 95 09/30/19 12:37 Respiratory Rate 21 H 09/30/19 12:37 Blood Pressure 126/76 09/30/19 12:37 Pulse Oximetry 98 09/30/19 12:37 Medical Decision Making Vital Signs Vital Signs: Vital Signs Temperature 36.9 C 09/30/19 12:37 Pulse Rate 95 09/30/19 12:37 Respiratory Rate 21 H 09/30/19 12:37 Blood Pressure 126/76 09/30/19 12:37 Pulse Oximetry 98 09/30/19 12:37 Temperature 36.9 C 09/30/19 12:37 Pulse Rate 95 09/30/19 12:37 Respiratory Rate 21 H 09/30/19 12:37 Blood Pressure 126/76 09/30/19 12:37 Pulse Oximetry 98 09/30/19 12:37 Discharge Plan Discharge Prescriptions: No Action simvastatin 20 mg tablet 20 mg PO HS RF: 0 lisinopril 5 mg tablet 5 mg PO DAILY RF: 0 Lantus Solostar U-100 Insulin 100 unit/mL (3 mL) insulin pen 30 unit SUBCUT DAILY RF: 0 acetaminophen [Mapap (acetaminophen)] 325 mg Tablet 650 mg PO Q4H PRN (Reason: Mild Pain (1-3) Or Fever) Qty: 6 RF: 0 carvedilol [Coreg] 12.5 mg Tablet 12.5 mg PO Q12HR Qty: 6 RF: 0 aspirin 81 mg Tablet,Delayed Release (Dr/Ec) 81 mg PO QAM Qty: 30 RF: 0 spironolactone 25 mg Tablet 25 mg PO QAM Qty: 30 RF: 0 furosemide 20 mg Tablet 20 mg PO DAILY Qty: 30 RF: 0
--- NOTE | 2019-09-30 13:28 | ED.GENADULT ---
HPI - General Adult General Chief complaint: Arrhythmia/Palpitations Stated complaint: heart is not beating right Time Seen by Provider: 09/30/19 12:24 Source: patient and RN notes reviewed Mode of arrival: ambulatory Limitations: no limitations History of Present Illness HPI narrative: Pt is a 69 y/o male who presents to the ED with c/o abnormal EKG. According to old records, the pt was admitted to [facility] on 09/18/19 for CHF and CKD. He was eventually discharged home on 09/22/19. Pt states that he was evaluated by his PCP, Dr. Castro, this morning, and notes that he was advised to come to the ED due to his EKG showing an abnormal heart rhythm. He currently denies any palpitations, CP, or SOB. Pt states that he has a Hx of A-Fib. MD complaint: Abnormal EKG Associated symptoms: denies other symptoms Treatments prior to arrival: none Related Data Home Medications Medication Instructions Recorded Confirmed Lantus Solostar U-100 Insulin 30 unit SUBCUT DAILY 09/18/19 09/30/19 lisinopril 5 mg PO DAILY 09/18/19 09/30/19 simvastatin 20 mg PO HS 09/18/19 09/30/19 Allergies Allergy/AdvReac Type Severity Reaction Status Date / Time No Known Allergies Allergy Verified 09/30/19 12:43 Review of Systems Review of Systems: All systems reviewed & are unremarkable except as noted in HPI and below Cardiovascular: Cardiovascular: Denies chest pain and Denies palpitations Respiratory: Respiratory: Denies dyspnea PMFSH Past Medical History Medical History (Updated 09/30/19 @ 15:57 by Eric Rico DO) A-fib per pt Arthritis Back pain CVA (cerebral vascular accident) Diabetes HLD (hyperlipidemia) HTN (hypertension) MICHELE on CPAP Retinal detachment Surgical History Surgical History Hx of cataract surgery Hx of eye surgery repair of retinal detachment Social History Social History Smoking status: Never smoker Alcohol intake: never Substance use: never Substance use type: does not use Gender identity (if verbalized by the patient): Male Spiritual care concerns: No Agree to blood products: Yes Exam Narrative: Exam Narrative: APPEARANCE: No acute distress, nontoxic, resting in bed EYES: EOMI HEENT: Normocephalic, atraumatic, OMM RESPIRATORY: No respiratory distress Clear to auscultation bilaterally with no rhonchi wheezing or rales. CARDIOVASCULAR: Irregular irregular without murmurs rubs or gallops. ABDOMINAL: Soft, nontender, nondistended, no rebound or guarding MUSCULOSKELETAl: Moves all extremities. No clubbing, cyanosis or edema. NEURO: Awake and alert. Following commands, speech normal, no focal deficits SKIN:: Warm, dry. No rashes lesions or abrasions PSYCHIATRIC: Normal affect/mood, Course Course Emergency Course: Reviewed old records. Patient with chronic elevated troponin from previous admission Discussed with patient results of workup and diagnosis. Discussed need for follow-up with primary care, proper use of medication, and reasons to return to the emergency department. Patient understands and agrees to current treatment plan Consultations Consultation #1: Discussed case with [employer]ER to school adjustment counselor, Katie Floyd who discussed with Dr. Barahona. Advised to put him on Eliquis 5 mg BID and send him home. Discussed the patient's troponin level today and previous troponins with chronic elevation. States patient may be discharged with no further troponins at this time Date: 09/30/19 Time: 15:37 Vital Signs Vital signs: Vital Signs Temperature 98.5 F 09/30/19 12:37 Pulse Rate 95 09/30/19 12:37 Respiratory Rate 21 H 09/30/19 12:37 Blood Pressure 126/76 09/30/19 12:37 Pulse Oximetry 98 09/30/19 12:37 Temperature 98.5 F 09/30/19 12:37 Pulse Rate 95 09/30/19 12:37 Respiratory Rate 21 H 09/30/19 12:37 Blood Pressure 126/76 09/30/19 12:37 Pulse Oximetry 98
[2019-09-30 13:45] LABS: Basophils Absolute Auto 0.1 K/mm3 (0.0-0.1); Basophils Percent Auto 0.7 % (0.2-1.2); Eosinophils Absolute Auto 0.1 K/mm3 (0-0.3); Eosinophils Percent Auto 1.7 % (0-4.4); Hematocrit 46.1 % (42.0-52.0); Hemoglobin 15.2 g/dL (14.0-18.0); Immature Granulocyte Absolute 0.04 K/mm3 (0.00-0.031); Immature Granulocyte Percent A 0.5 % (0-0.5); Lymphocytes Absolute Auto 1.22 K/mm3 (0.9-3.2); Mean Corpuscular Volume 94.1 fl (80-100); Mean Platelet Volume 11.2 fl (7.4-10.4); Monocytes Absolute Auto 0.7 K/mm3 (0.1-0.6); Monocytes Percent Auto 8.7 % (2.6-8.5); Neutrophils Percent Auto 73.4 % (45.5-73.1); Platelet Count Result 178 k/mm3 (150-375); Red Cell Distribution Width 13.8 % (11.5-14.5); White Blood Count 8.1 K/mm3 (4.5-10.0)
[2019-09-30 13:53] LABS: INR 1.1; Prothrombin Time 13.5 Seconds (11.1-14.7)
[2019-09-30 14:03] LABS: Blood Urea Nitrogen 34 mg/dL (9-20); Calcium 9.6 mg/dL (8.4-10.2); Carbon Dioxide 22 mmol/L (22-30); Chloride 104 mmol/L (98-107); Estimated CRCL calculation 55 ml/min; Estimated Glomerular Filt Rate 47; Glucose 138 mg/dL (75-110); Potassium 4.7 mmol/L (3.4-5.0); Sodium 136 mmol/L (137-145)
[2019-09-30 14:22] LABS: Troponin I 0.053 ng/mL (0.000-0.034)
[2019-09-30 14:23] LABS: NT Pro B Type Natriuretic Pept 1510 PG/ML (5-100)
[2019-09-30 14:54] VITALS: BP 147/105; PULSE 91; RESP 15; O2SAT 98
[2019-09-30] MEDS: APIXABAN 5 MG TABLET PO (16:14)
[2019-09-30 16:24] VITALS: BP 152/116; PULSE 89; RESP 14; O2SAT 97
== END 2019-09-30 16:24 | disposition home or self-care (01) ==
PROVIDERS: Emergency Provider Emergency Medicine; PCP Student in an Organized Health Care Education/Training Program
DX: I48.91 Unspecified atrial fibrillation (principal); M19.90 Unspecified osteoarthritis, unspecified site; Z86.73 Personal history of transient ischemic attack (TIA), and cerebral infarction without residual deficits; E11.22 Type 2 diabetes mellitus with diabetic chronic kidney disease; I13.0 Hypertensive heart and chronic kidney disease with heart failure and stage 1 through stage 4 chronic kidney disease, or unspecified chronic kidney disease; N18.9 Chronic kidney disease, unspecified; I50.9 Heart failure, unspecified; E78.5 Hyperlipidemia, unspecified; G47.33 Obstructive sleep apnea (adult) (pediatric); Z98.49 Cataract extraction status, unspecified eye; I49.3 Ventricular premature depolarization; I45.9 Conduction disorder, unspecified; R94.31 Abnormal electrocardiogram [ECG] [EKG]
CPT/HCPCS: 36415; 71046; 80048; 83880; 84484; 85025; 85610; 85730; 93005; 99284; A9270

== ENCOUNTER 2019-11-09 13:32 | Inpatient (IN) | payer OTHER, SELFPAY ==
[2019-11-09] VITALS (13 sets, daily range): BP systolic 88–115; BP diastolic 50–70; PULSE 60–111; RESP 16–20; TEMP 36–37.1; O2SAT 95–100; BMI 33.5
--- NOTE | ~2019-11-09 | XR_ITS ---
XR chest 2V DATE: 11/09/2019 14:12 INDICATION: Fever. Hypotension. Weakness. TECHNIQUE: AP and lateral views COMPARISON: 09/30/2019 PA and lateral chest FINDINGS: Cardiomegaly. There is mild prominence of the fissures suggesting subpleural edema. There i s mild probably vascular congestion/redistribution. There is mild atelectasis or infiltrate in the vi ng bases. No pleural effusion or pneumothorax is evident. IMPRESSION: Cardiomegaly, mild congestive changes Mild basilar infiltrate or atelectasis Reviewed, dictated and finalized at location A.
--- NOTE | ~2019-11-09 | XR_ITS ---
EXAMINATION: XR chest 2V DATE: 11/13/2019 12:43 INDICATION: Weakness. Diaphoresis. TECHNIQUE: Frontal and lateral views of the chest were obtained. COMPARISON: Chest 2 views 11/09/2019, CT abdomen and pelvis 03/31/2018 FINDINGS: There is no pneumonia, pleural effusion, or pneumothorax. The heart size is normal. IMPRESSION: 1. No acute cardiopulmonary disease. Reviewed, dictated and finalized at location E.
--- NOTE | 2019-11-09 13:54 | ECG_ITS ---
Measurements Intervals [place] Rate: 68 P: [place]: 0 QRS: -36 QRSD: 108 T: 133 QT: 398 QTc: 424 Interpretive Statements ATRIAL FIBRILLATION VENTRICULAR PREMATURE COMPLEX LEFT AXIS DEVIATION INTRAVENTRICULAR CONDUCTION DELAY DELAYED PRECORDIAL R/S TRANSITION ST-T WAVE ABNORMALITY IN HIGH LATERAL LEADS- CONSIDER ISCHEMIA ABNORMAL ECG Electronically Signed On 11-10-2019 8:47:51 CDT by Roberto Mcmahan D.O.
--- NOTE | 2019-11-09 14:04 | ED.WEAKNESS ---
HPI - Weakness General Chief complaint: Weakness Stated complaint: SWEATING Time Seen by Provider: 11/09/19 13:39 Source: patient, family and old records reviewed Mode of arrival: EMS Limitations: no limitations History of Present Illness HPI Narrative: Patient is a 69-year-old male who presents to the emergency department with report of weakness and diaphoresis. Patient has had symptoms for the past 2 to 3 days. He reports subjective fever at home, but did not have a thermometer to take his temperature. Patient denies any other specific symptoms. He specifically denies chest pain, abdominal pain, nausea, vomiting, diarrhea, cough, shortness of breath, headache, or myalgias. Patient has chronic back pain and states he had a little increased back pain after vacuuming his swimming pool over the weekend. Complaint: generalized weakness Onset (ago): day(s) Duration: constant Location: generalized Associated symptoms: diaphoresis and fever/chills (Subjective) Related Data Home Medications Medication Instructions Recorded Confirmed Lantus Solostar U-100 Insulin 30 unit SUBCUT DAILY 09/18/19 09/30/19 lisinopril 5 mg PO DAILY 09/18/19 09/30/19 simvastatin 20 mg PO HS 09/18/19 09/30/19 Allergies Allergy/AdvReac Type Severity Reaction Status Date / Time No Known Allergies Allergy Verified 09/30/19 12:43 Review of Systems Review of Systems: All systems reviewed & are unremarkable except as noted in HPI and below Constitutional: Constitutional: Reports chills, Reports excessive sweating, Reports fatigue, Reports fever(s) (Subjective) and Reports weakness Cardiovascular: Cardiovascular: Denies chest pain Respiratory: Respiratory: Denies cough and Denies dyspnea Gastrointestinal: Gastrointestinal: Denies abdominal pain, Denies diarrhea, Denies nausea and Denies vomiting Genitourinary: Genitourinary: Denies dysuria Musculoskeletal: Musculoskeletal: Reports back pain PMFSH Past Medical History Medical History A-fib per pt Arthritis Back pain CVA (cerebral vascular accident) Diabetes HLD (hyperlipidemia) HTN (hypertension) MICHELE on CPAP Retinal detachment Surgical History Surgical History Hx of cataract surgery Hx of eye surgery repair of retinal detachment Social History Social History Smoking status: Never smoker Alcohol intake: never Substance use: never Substance use type: does not use Gender identity (if verbalized by the patient): Male Spiritual care concerns: No Agree to blood products: Yes Exam Const: General: cooperative, no acute distress, alert and diaphoretic Nutritional Appearance: obese Orientation/consciousness: patient oriented x3 Limitations: no limitations Eyes: Conjunctivae: conjunctivae normal Pupils: Equal, round and reactive pupils present Resp: Effort & Inspection: normal respiratory effort Auscultation: clear to auscultation bilaterally Cardio: Rate: regular rate Rhythm: regular rhythm GI: GI Palp: Yes Soft to palpation and No Tenderness to palpation present (GI) Auscultation: normal bowel sounds Skin: General skin exam: no rashes or lesions noted and pallor Neuro: General: patient oriented x3 Cognition (Neuro): normal cognition Speech: normal speech Extrem: General: normal to inspection, full ROM and no clubbing, cyanosis or edema Psych: Mental Status: mental status grossly normal Affect: normal affect Attitude: cooperative Course Course Emergency Course: Patient with normalization of blood pressure after 1 L of IV fluids. Patient denying any chest pain or shortness of breath and relatively asymptomatic in the emergency department. Patient has findings consistent with congestive heart failure on his test and an elevated troponin. Patient is afebrile and does not have eleva
[2019-11-09 14:06] LABS: Basophils Percent Auto 0.5 % (0.2-1.2); Eosinophils Percent Auto 0.7 % (0-4.4); Hematocrit 38.9 % (42.0-52.0); Hemoglobin 12.9 g/dL (14.0-18.0); Immature Granulocyte Absolute 0.08 K/mm3 (0.00-0.031); Immature Granulocyte Percent A 1.3 % (0-0.5); Immature Platelet Fraction Pct 5.8 % (0.9-11.2); Lymphocytes Absolute Auto 0.53 K/mm3 (0.9-3.2); Lymphocytes Percent Auto 8.7 % (18.3-44.2); Mean Corpuscular HGB Conc 33.2 g/dl (32-36); Mean Corpuscular Hemoglobin 31.5 pg (26-34); Mean Corpuscular Volume 95.1 fl (80-100); Mean Platelet Volume 11.3 fl (7.4-10.4); Monocytes Absolute Auto 0.6 K/mm3 (0.1-0.6); Monocytes Percent Auto 9.1 % (2.6-8.5); Neutrophils Absolute Auto 4.8 K/mm3 (1.3-6.7); Neutrophils Percent Auto 79.7 % (45.5-73.1); Platelet Count Result 110 k/mm3 (150-375); Red Blood Count 4.09 M/mm3 (4.6-6.20); Red Cell Distribution Width 16.1 % (11.5-14.5); White Blood Count 6.1 K/mm3 (4.5-10.0)
[2019-11-09] MEDS: LACTATED RINGERS 1,000 ML 999 ML (14:08)
[2019-11-09 14:25] LABS: Alveolar/Arterial O2 Gradient 27.4 mmHg; Base Excess ABG -8.5 mEq/l (+/-2.0); Carboxyhemoglobin 0.4 % THb (0-2.0); Fractional Inspired Oxygen 21 %; HCO3 ABG 14.8 mEq/l (22.0-26.0); Methemoglobin ABG 0.1 %THb (0-1.5); Oxygen Content ABG 17.4 %vol (16.0-22.0); Oxygen Saturation ABG 97.1 % (95.0-100.0); Oxyhemoglobin 95.4 % THb (90.0-100.0); PCO2 ABG 25.3 mmHg (35.0-45.0); PO2 FiO2 Ratio Arterial Blood 4.38 %; Reduced Hemoglobin 4.1 %THb (0-5.0); Site Drawn RIGHT BRACHIAL; Total Hemoglobin 12.9 g/dL (12.0-18.0); pH ABG 7.386 (7.350-7.450)
[2019-11-09 14:26] LABS: Device ROOM AIR
[2019-11-09 15:03] LABS: INR 1.5; Lactic Acid Reflex 1.8 mmol/L (0.7-2.1); Partial Thromboplastin Time 29.7 SECONDS (22.3-36.8); Prothrombin Time 17.3 Seconds (11.1-14.7)
[2019-11-09 15:06] LABS: Alanine Aminotransferase 33 U/L (4-50); Alkaline Phosphatase 75 U/L (38-126); Aspartate Amino Transferase 34 U/L (17-59); Bilirubin,Total 1.4 mg/dL (0.2-1.3); Blood Urea Nitrogen 30 mg/dL (9-20); Calcium 8.7 mg/dL (8.4-10.2); Carbon Dioxide 22 mmol/L (22-30); Chloride 106 mmol/L (98-107); Estimated CRCL calculation 45 ml/min; Estimated Glomerular Filt Rate 35; Glucose 233 mg/dL (75-110); Potassium 5.2 mmol/L (3.4-5.0); Sodium 135 mmol/L (137-145)
[2019-11-09 15:08] LABS: CRP 4.6 mg/dL (<1.0); Magnesium 1.9 mg/dL (1.6-2.3)
[2019-11-09 15:20] LABS: Troponin I 0.064 ng/mL (0.000-0.034)
[2019-11-09 15:29] LABS: NT Pro B Type Natriuretic Pept 6850 PG/ML (5-100)
[2019-11-09 16:21] LABS: Add Urine Microscopic? YES; Appearance Urine Clear (Clear); Bilirubin Urine Negative (Negative); Blood Urine 1+ (Negative); Color Urine Yellow (Yellow); Glucose Urine UA 1+ mg/dL (Negative); Ketones Urine Negative (Negative); Leukocyte Esterase Ur Negative LEU/UL (Negative); Mucus Urine Rare /lpf; Nitrate Urine Negative (Negative); Protein Urine Negative (Negative); RBC Urine 0-2 /hpf (0-2); Specific Grav Ur 1.012 (1.001-1.035); Squamous Epithelial Cell Urine Rare /hpf (Few); Urobilinogen Urine Negative mg/dL (<2.0); WBC Urine 0-3 /hpf
[2019-11-09 18:07] LABS: Troponin I 0.052 ng/mL (0.000-0.034)
[2019-11-09 20:18] LABS: Glucose Point of Care 172 (65-105)
[2019-11-09 20:44] LABS: Glucose Point of Care 172 (65-105)
[2019-11-09 21:19] LABS: Troponin I 0.048 ng/mL (0.000-0.034)
[2019-11-09] MEDS: INSULIN GLARGINE (*BKC) 100 UNITS/ML 30 UNITS SUB-Q (22:51)
[2019-11-09] MEDS: APIXABAN 5 MG TABLET PO (22:51)
[2019-11-09] MEDS: ASPIRIN 81 MG ENTERIC TABLET PO (22:51)
[2019-11-09] MEDS: SIMVASTATIN 20 MG TABLET PO (22:51)
[2019-11-09] MEDS: carvediloL 12.5 MG TABLET PO (22:51)
[2019-11-10] VITALS (21 sets, daily range): BP systolic 78–110; BP diastolic 31–72; PULSE 69–95; RESP 14–20; TEMP 35.9–37.8; O2SAT 96–100
--- NOTE | 2019-11-10 01:41 | PM.IMHP ---
H&P: HPI History of Present Illness Chief complaint: Weakness, sweating Narrative: Date and time of patient contact: 11/09/2019 at 10:50 p.m. Danny Valero is a 69 year old male with a past medical history of chronic kidney disease, obstructive sleep apnea with CPAP, and recent diagnosis of systolic and diastolic congestive heart failure, pulmonary hypertension who presented to the ER via EMS due to feeling ill with weakness, diaphoresis and subjective fever since the . That he has been laying in bed all except for an hour to since the . He would have intermittent sweats and chills. He did not have a thermometer to take his temperature. He had noticed some nasal congestion but denies any rhinorrhea or cough. He has not had any nausea vomiting or diarrhea. His last bowel movement was a couple of days ago. He denies any myalgias but has been having fatigue. Evidently a day or so before that he had been vacuuming out the swimming pool and had noticed a little bit of increased back pain with that. He denies any headache or visual changes. He has not been having any recent ill contacts. He goes out grocery shopping about every other week. He denies any loss of taste or smell. He has not had any chest pain or palpitations. He reports that during his last hospitalization in August he lost approximately 30-35 lb in water weight. He has not had any recurrent lower extremity swelling. He has noticed some increased orthopnea recently. He was diagnosed with atrial fibrillation during a ER visit in September and has subsequently been started on Eliquis. He denies any hematochezia, melena, or hematuria. The patient is still on CPAP therapy based on a sleep study from 2003. He reports that he wears a CPAP any time that he is going to bed for the night but does not necessarily wear the CPAP if he is in laying in bed otherwise or napping. Review of Systems Review of Systems: Narrative: 12 systems were reviewed with pertinent positives and negatives per HPI. Except as documented in the HPI, all other systems were reviewed and are negative. [facility] Past Medical History Medical History (Updated 11/10/19 @ 04:27 by Sheridan Howell DO) Arthritis Back pain Cardiomyopathy Left ventricular chamber dimension is severely enlarged. Left ventricular systolic function is severely reduced, estimated at 25-30%. The left ventricular diastolic function is grade III diastolic dysfunction. Akinetic basal inferior wall. Left atrial chamber dimension is severely enlarged. Right atrial chamber dimension is severely enlarged. There is mild eccentric aortic valve regurgitation which may underestimate severity. Chronic kidney disease, stage 3 Baseline creatinine around 1.5-1.9 Combined systolic and diastolic congestive heart failure New diagnosis August 2019 with EF 25-30% and grade 3 diastolic dysfunction CVA (cerebral vascular accident) Per patient however the patient had MRI March 2018 which demonstrated no evidence of prior infarct only chronic small-vessel ischemic disease Diabetes Essential hypertension Hyperlipidemia Mitral valve disorder The mitral valve has thickened leaflets. There is mild mitral valve regurgitation. The mitral valve annulus is mildly calcified. 1.1 x 0.6 cm fixed, circumscribed calcified echodensity on the atrial side of the anterior mitral valve leaflet unable to be further characterized. Differential includes calcified sub mitral apparatus, vegetation, mass unlikely thrombus. Clinical correlation advised. Consider EDGAR if clinically indicated. There is mild tricuspid valve regurgitation. From echocardiogram August 2019 Moderate pulmonary arterial systolic hypertension RVSP of 40 on echocardiogram August 2019 MICHELE on CPAP Since 2004 with his most recent sleep study February 2018 recommending a CPAP pressure of 9 Retinal detachment February 2018 Surgical History Surgical History (Updated 11/10/19 @ 03:56 by Anusha
[2019-11-10 04:54] LABS: Basophils Percent Auto 0.5 % (0.2-1.2); Eosinophils Absolute Auto 0.1 K/mm3 (0-0.3); Eosinophils Percent Auto 0.9 % (0-4.4); Hematocrit 33.2 % (42.0-52.0); Hemoglobin 11.1 g/dL (14.0-18.0); Immature Granulocyte Absolute 0.06 K/mm3 (0.00-0.031); Immature Granulocyte Percent A 1.1 % (0-0.5); Lymphocytes Absolute Auto 0.93 K/mm3 (0.9-3.2); Lymphocytes Percent Auto 16.8 % (18.3-44.2); Mean Corpuscular HGB Conc 33.4 g/dl (32-36); Mean Corpuscular Hemoglobin 31.5 pg (26-34); Mean Corpuscular Volume 94.3 fl (80-100); Mean Platelet Volume 11.3 fl (7.4-10.4); Monocytes Absolute Auto 0.8 K/mm3 (0.1-0.6); Monocytes Percent Auto 13.7 % (2.6-8.5); Neutrophils Absolute Auto 3.7 K/mm3 (1.3-6.7); Platelet Count Result 98 k/mm3 (150-375); Red Blood Count 3.52 M/mm3 (4.6-6.20); Red Cell Distribution Width 16.1 % (11.5-14.5); White Blood Count 5.6 K/mm3 (4.5-10.0)
[2019-11-10 05:05] LABS: Alanine Aminotransferase 31 U/L (4-50); Albumin Level 3.5 g/dL (3.5-5.1); Alkaline Phosphatase 58 U/L (38-126); Aspartate Amino Transferase 32 U/L (17-59); Bilirubin,Total 1.3 mg/dL (0.2-1.3); Blood Urea Nitrogen 32 mg/dL (9-20); CRP 4.4 mg/dL (<1.0); Calcium 8.3 mg/dL (8.4-10.2); Carbon Dioxide 21 mmol/L (22-30); Chloride 107 mmol/L (98-107); Estimated CRCL calculation 54 ml/min; Estimated Glomerular Filt Rate 43; Glucose 110 mg/dL (75-110); Potassium 4.6 mmol/L (3.4-5.0); Sodium 134 mmol/L (137-145)
[2019-11-10 08:16] LABS: Glucose Point of Care 117 (65-105)
[2019-11-10] MEDS: APIXABAN 5 MG TABLET PO ×2 (08:49→16:58)
[2019-11-10] MEDS: carvediloL 12.5 MG TABLET PO (08:49)
[2019-11-10] MEDS: lisinopriL 5 MG TABLET PO (08:49)
--- NOTE | 2019-11-10 11:21 | PM.IMPN ---
Progress Note: A&P Assessment and Plan (1) Hypotension: Qualifiers: Hypotension type: unspecified hypotension type Qualified Code(s): I95.9 - Hypotension, unspecified Code(s): I95.9 - Hypotension, unspecified Status: Acute Assessment and Plan: Blood pressure improved after normal saline bolus in the emergency room. Blood pressure reviewed on 11/10/2019 and presently stable. Continue to monitor on Coreg and lisinopril. Home oral Lasix and spironolactone on hold although patient did receive IV Lasix today. Continue to monitor. Telemetry reviewed on 11/10/2019 with irregular rhythm but rate controlled. (2) Congestive heart failure (CHF): Qualifiers: Heart failure chronicity: acute on chronic Heart failure type: combined systolic and diastolic Qualified Code(s): I50.43 - Acute on chronic combined systolic (congestive) and diastolic (congestive) heart failure Code(s): I50.9 - Heart failure, unspecified Status: Acute Assessment and Plan: Echocardiogram in August 2019 with EF 25-30%, grade 3 diastolic dysfunction, akinetic basal inferior wall and 1.1 x 0.6 cm fixed, circumscribed calcified echodensity on the atrial side of the anterior mitral valve leaflet unable to further characterize. Cardiology consulted and appreciate input. Continue Coreg and lisinopril. IV Lasix given today. Will continue to monitor. (3) Subjective fever: Code(s): R50.9 - Fever, unspecified Status: Acute Assessment and Plan: Patient with subjective fever prior to admission. No recorded fever here. Patient's does mention he has had several tick bites. With patient's other symptoms common COVID-19 testing now initiated. Will continue to monitor. (4) Acute renal failure superimposed on stage 3 chronic kidney disease: Qualifiers: Acute renal failure type: unspecified Qualified Code(s): N17.9 - Acute kidney failure, unspecified; N18.3 - Chronic kidney disease, stage 3 (moderate) Code(s): N17.9 - Acute kidney failure, unspecified; N18.3 - Chronic kidney disease, stage 3 (moderate) Status: Acute Assessment and Plan: Creatinine higher than his usual at 1.90 on presentation but improved to 1.60 today. Will continue monitor with lisinopril and Lasix use. (5) Diabetes: Qualifiers: Diabetes mellitus type: type 2 Diabetes mellitus fpc insulin use: with fpc use Diabetes mellitus complication status: with kidney complications Diabetes mellitus complication detail: with chronic kidney disease Chronic kidney disease stage: stage 3 (moderate) Qualified Code(s): E11.22 - Type 2 diabetes mellitus with diabetic chronic kidney disease; N18.3 - Chronic kidney disease, stage 3 (moderate); Z79.4 - termite exterminator helper (current) use of insulin Code(s): E11.9 - Type 2 diabetes mellitus without complications Status: Chronic Assessment and Plan: Glucose reviewed on 11/10/2019 and presently stable. Will continue Lantus and sliding scale insulin. Will continue to monitor. (6) MICHELE on CPAP: Code(s): G47.33 - Obstructive sleep apnea (adult) (pediatric); Z99.89 - Dependence on other enabling machines and devices Status: Chronic Assessment and Plan: May benefit from repeat sleep study as an outpatient. Will continue to monitor while here. (7) DVT prophylaxis: Code(s): Z29.9 - Encounter for prophylactic measures, unspecified Status: Acute Assessment and Plan: On Eliquis. Time Spent With Patient Time with patient: 15 - 25 minutes Subjective Date/time seen: 11/10/19 11:21 Interval history: Date of Service: 11/10/2019. Admitted with hypotension, CHF exacerbation. Feels a little better today. Was able to compliance examiner bathroom for 15 minutes this morning for sponge bath without dizziness. Decreased shortness of breath with exertion. No chest pain or pressure. No headache. Review of Systems Revie
[2019-11-10 12:14] LABS: Glucose Point of Care 118 (65-105)
--- NOTE | 2019-11-10 14:48 | PM.CNCAR ---
Assessment and Plan Assessment and plan (1) Subjective fever: Code(s): R50.9 - Fever, unspecified Status: Acute Assessment and Plan: Patient stated that he felt like he had the flu. He has had subjective fevers and chills. Night sweats is also a complaint. He does have a cough. He has had no COVID contacts he is aware of but does go out grocery shopping. According to the nurse, he recently had a tick bite also. This was while out turkey hunting. I do think it is reasonable to have him COVID tested. Will order COVID PCR and put him on isolation for the time being. Will transfer him to the ICU until testing results are back He may need tick-borne Disease workup also but will defer to hospitalist (2) Hypotension: Code(s): I95.9 - Hypotension, unspecified Status: Acute Assessment and Plan: Will reduce his carvedilol down to 6.25 mg p.o. b.i.d.. (3) Congestive heart failure (CHF): Qualifiers: Heart failure chronicity: acute on chronic Heart failure type: unspecified Qualified Code(s): I50.9 - Heart failure, unspecified Code(s): I50.9 - Heart failure, unspecified Status: Acute Assessment and Plan: Systolic congestive heart failure. Mild acute on chronic. Will give a dose of IV diuretics in the form of furosemide IV x1. Repeat portable chest x-ray tomorrow. (4) MICHELE on CPAP: Code(s): G47.33 - Obstructive sleep apnea (adult) (pediatric); Z99.89 - Dependence on other enabling machines and devices Status: Chronic (5) Elevated troponin: Code(s): R79.89 - Other specified abnormal findings of blood chemistry Status: Acute Assessment and Plan: Not related to acute coronary syndrome (6) Acute renal failure superimposed on stage 3 chronic kidney disease: Code(s): N17.9 - Acute kidney failure, unspecified; N18.3 - Chronic kidney disease, stage 3 (moderate) Status: Acute History of Present Illness History of Present Illness Consult date/time: 11/10/19 14:48 Requesting physician: Sheridan Howell DO Consult reason: congestive heart failure and hypotension Reason For Visit: Weakness, sweating Narrative: Reason for consultation: hypotension, congestive heart failure Date of service 11/10/2019: History: Patient is a 69-year-old male who has a history of heart failure. Seen by Dr. Braahona in late August. He is found have a severe cardiomyopathy, sleep apnea, chronic kidney disease, chronic congestive heart failure. Patient states he felt like he had the flu and went to his primary care physician yesterday. He was noted to have a low blood pressure and sent emergently to the hospital. Patient states that he had been having a couple days of some sweatiness and chills as well as a cough. He has been short of breath x6 months with doing things such as climbing up and down steps. This is not particularly new or different. He denies any syncope or associated chest pain. He has had no associated palpitations but does have some paroxysmal nocturnal dyspnea at times. He does use his CPAP. He came to the hospital for further workup evaluation. Some of his congestive heart failure medications have been on hold. EKG shows atrial fibrillation which is not a new diagnosis. He was started on Eliquis as an outpatient. He has some nonspecific lateral T-wave abnormalities. Chest x-ray concerning for some CHF. He does not have any COVID contact but has been going on to the grocery store. CRP is elevated Review of Systems Review of Systems: All systems reviewed & are unremarkable except as noted in HPI and below Constitutional: Constitutional: Reports chills and Reports weakness Eyes: Eyes: Denies blurry vision ENT: Reports Normal hearing present Cardiovascular: Cardiovascular: Denies chest pain Respiratory: Respiratory: Reports dyspnea and Reports dyspnea on exertion Gastrointestinal: Gastrointestinal: Denies abdominal pain
--- NOTE | 2019-11-10 16:16 | PC.NURSE ---
This patient, Danny Valero, was transferred to ICU-4 on 11/10/19 at 1540. Personal belongings sent with patient. Belongings list checked. Report given to CLAUDIA Dong. Appropriate documentation sent with patient.
[2019-11-10] MEDS: FUROSEMIDE INJ 40 MG/4 ML VIAL 20 MG IV PUSH (16:58)
[2019-11-10 18:56] LABS: Glucose Point of Care 136 (65-105)
--- NOTE | 2019-11-10 19:03 | PC.NURSE ---
This patient, Danny Valero, was received from [[phone] ] on 11/10/19 at 1550. Personal belongings list checked and signed. Patient/family oriented to unit policies and routines Report received from CLAUDIA Kruse.
[2019-11-10] MEDS: ASPIRIN 81 MG ENTERIC TABLET PO (19:31)
[2019-11-10] MEDS: ACETAMINOPHEN 325 MG TABLET 650 MG PO (19:32)
[2019-11-10] MEDS: SIMVASTATIN 20 MG TABLET PO (19:32)
[2019-11-10] MEDS: INSULIN GLARGINE (*BKC) 100 UNITS/ML 30 UNITS SUB-Q (19:32)
[2019-11-10 19:44] LABS: Glucose Point of Care 167 (65-105)
[2019-11-10] MEDS: carvediloL 6.25 MG TABLET PO (20:20)
[2019-11-11] VITALS (17 sets, daily range): BP systolic 99–113; BP diastolic 51–66; PULSE 54–98; RESP 12–20; TEMP 36.2–37.3; O2SAT 95–100
[2019-11-11 04:15] LABS: Blood Urea Nitrogen 33 mg/dL (9-20); Calcium 8.6 mg/dL (8.4-10.2); Carbon Dioxide 23 mmol/L (22-30); Chloride 104 mmol/L (98-107); Estimated CRCL calculation 57 ml/min; Estimated Glomerular Filt Rate 47; Glucose 96 mg/dL (75-110); Magnesium 1.8 mg/dL (1.6-2.3); Potassium 4.2 mmol/L (3.4-5.0); Sodium 134 mmol/L (137-145)
[2019-11-11 08:32] LABS: SARS-CoV-2 RNA PCR Negative
[2019-11-11] MEDS: lisinopriL 5 MG TABLET PO (08:43)
[2019-11-11] MEDS: APIXABAN 5 MG TABLET PO ×2 (08:43→17:00)
[2019-11-11] MEDS: carvediloL 6.25 MG TABLET PO ×2 (08:44→20:27)
[2019-11-11 08:48] LABS: Glucose Point of Care 90 (65-105)
--- NOTE | 2019-11-11 09:58 | PM.IMPN ---
Progress Note: A&P Assessment and Plan (1) Hypotension: Qualifiers: Hypotension type: unspecified hypotension type Qualified Code(s): I95.9 - Hypotension, unspecified Code(s): I95.9 - Hypotension, unspecified Status: Acute Assessment and Plan: Blood pressure improved after normal saline bolus in the emergency room. Blood pressure reviewed on 11/11/2019 and now remaining low normal but stable. Will continue current Coreg and lisinopril. Spironolactone restarted per Cardiology. Lasix remains on hold. Telemetry reviewed on 11/11/2019 with irregular rhythm but rate remaining controlled. If okay with Cardiology, will transfer to medical floor from IMU. (2) Congestive heart failure (CHF): Qualifiers: Heart failure chronicity: acute on chronic Heart failure type: combined systolic and diastolic Qualified Code(s): I50.43 - Acute on chronic combined systolic (congestive) and diastolic (congestive) heart failure Code(s): I50.9 - Heart failure, unspecified Status: Acute Assessment and Plan: Echocardiogram in August 2019 with EF 25-30%, grade 3 diastolic dysfunction, akinetic basal inferior wall and 1.1 x 0.6 cm fixed, circumscribed calcified echodensity on the atrial side of the anterior mitral valve leaflet unable to further characterize. Cardiology consulted and appreciate input. Continue Coreg and lisinopril. IV Lasix given yesterday. Spironolactone restarted today. Will continue to monitor. (3) Subjective fever: Code(s): R50.9 - Fever, unspecified Status: Acute Assessment and Plan: Patient with subjective fever prior to admission. No recorded fever here. Patient's does mention he has had several tick bites. COVID-19 testing is negative and will discontinue isolation. (4) Acute renal failure superimposed on stage 3 chronic kidney disease: Qualifiers: Acute renal failure type: unspecified Qualified Code(s): N17.9 - Acute kidney failure, unspecified; N18.3 - Chronic kidney disease, stage 3 (moderate) Code(s): N17.9 - Acute kidney failure, unspecified; N18.3 - Chronic kidney disease, stage 3 (moderate) Status: Acute Assessment and Plan: Creatinine higher than his usual at 1.90 on presentation. Continues to improve in down to 1.50 today. Will continue to monitor. (5) Diabetes: Qualifiers: Chronic kidney disease stage: stage 3 (moderate) Diabetes mellitus complication detail: with chronic kidney disease Diabetes mellitus complication status: with kidney complications Diabetes mellitus detention insulin use: with terminal carman use Diabetes mellitus type: type 2 Qualified Code(s): E11.22 - Type 2 diabetes mellitus with diabetic chronic kidney disease; N18.3 - Chronic kidney disease, stage 3 (moderate); Z79.4 - intermodal truck driver (current) use of insulin Code(s): E11.9 - Type 2 diabetes mellitus without complications Status: Chronic Assessment and Plan: Glucose reviewed on 11/11/2019 and remains stable. Will continue Lantus and sliding scale insulin. Will continue to monitor. (6) MICHELE on CPAP: Code(s): G47.33 - Obstructive sleep apnea (adult) (pediatric); Z99.89 - Dependence on other enabling machines and devices Status: Chronic Assessment and Plan: May benefit from repeat sleep study as an outpatient. Will continue to monitor while here. (7) DVT prophylaxis: Code(s): Z29.9 - Encounter for prophylactic measures, unspecified Status: Acute Assessment and Plan: On Eliquis. Time Spent With Patient Time with patient: 15 - 25 minutes Subjective Date/time seen: 11/11/19 09:58 Interval history: Date of Service: 11/11/2019. Admitted with hypotension, CHF exacerbation. Patient reports feeling better today still has some shortness of breath but improving. No headache or dizziness. No chest pain. No abdominal pain. Review of Systems Review of Systems: [place]
--- NOTE | 2019-11-11 10:13 | PC.NURSE ---
Dr. Yanes and Katie Floyd, TYPEWRITER ASSEMBLY AND PARTS INSPECTOR notified of negative Covid-19 results
--- NOTE | 2019-11-11 11:12 | PM.PNCARD ---
Progress Note: A&P Additional Plan 69-year-old man with: Chronic atrial fibrillation and left ventricular systolic dysfunction. Patient is no longer hypotensive his carvedilol has been reduced by 50%. Fortunately he has ruled out for Coronavirus. Okay to moved to the floor today I would suggest resuming his spironolactone for optimal suppression of his renal angiotensin axis. Jason Chicas MD [facility] Subjective Date/time seen: Date of service: 11/11/19 11:12 Interval history: Follow-up visit in 69-year-old man with chronic atrial fibrillation and cardiomyopathy. Patient was him admitted from his PCP office because of hypotension. Blood pressure is normalized and he has been moved out of ICU today as he ruled out for Coronavirus. S patient feels relatively well today he is not significantly short of breath. Exam Const: General: comfortable and no acute distress HENMT: Mouth: Yes moist mucous membranes Eyes: Sclera: sclerae normal Pupils: Equal, round and reactive pupils present Neck: Neck: supple and no JVD Thyroid: thyroid normal Resp: Effort & Inspection: normal respiratory effort Auscultation: crackles Other: Few crackles at the left base Cardio: Rhythm: abnormal rhythm irregularly irregular GI: Auscultation: normal bowel sounds Skin: General skin exam: normal color Neuro: Cognition (Neuro): normal cognition Objective Data Vital Signs Vital Signs: Vital Signs - 24 hr 11/10/19 12:00 11/10/19 12:16 11/10/19 14:00 Temperature 35.9 C L Pulse Rate 82 69 Respiratory Rate 16 Blood Pressure 88/31 L 88/62 L Pulse Oximetry 100 11/10/19 15:36 11/10/19 15:51 11/10/19 16:00 Temperature 36.1 C L 36.9 C Pulse Rate 72 77 75 Respiratory Rate 16 18 Blood Pressure 78/52 L 110/72 Pulse Oximetry 99 98 11/10/19 18:00 11/10/19 19:32 11/10/19 20:00 Temperature 37.8 C H 37.8 C H Pulse Rate 76 84 Respiratory Rate 16 Blood Pressure 110/68 Pulse Oximetry 98 11/10/19 20:14 11/10/19 20:20 11/10/19 20:39 Temperature 37.4 C Pulse Rate 82 80 Respiratory Rate Blood Pressure Pulse Oximetry 11/10/19 20:57 11/10/19 22:00 11/11/19 00:00 Temperature 36.3 C L Pulse Rate 79 95 78 Respiratory Rate 20 20 Blood Pressure 99/66 L Pulse Oximetry 97 97 11/11/19 02:00 11/11/19 02:31 11/11/19 04:00 Temperature 36.2 C L Pulse Rate 73 78 77 Respiratory Rate 17 18 Blood Pressure 101/60 Pulse Oximetry 100 99 11/11/19 06:00 11/11/19 08:00 11/11/19 08:44 Temperature 37.3 C Pulse Rate 71 77 84 Respiratory Rate 12 Blood Pressure 107/59 L Pulse Oximetry 99 11/11/19 10:00 Temperature Pulse Rate 82 Respiratory Rate Blood Pressure Pulse Oximetry Intake/Output Intake/Output: Intake & Output 11/08/19 11/09/19 11/10/19 11/11/19 23:59 23:59 23:59 23:59 Intake Total 1240 480 440 Output Total 4936 800 Balance 4564 -5555 -441 Meds/Results Medications: Active Medications Generic Name Dose Route Start Last Admin Trade Name Freq PRN Reason Stop Dose Admin Acetaminophen 650 mg 11/09/19 22:01 11/10/19 19:32 Tylenol Tablet PO 650 mg Q4H PRN Administration Mild Pain (1-3) Or Fever Hydrocodone Bitart/Acetaminophen 1 tab 11/09/19 22:01 11/10/19 08:57 Irving 10-325 Mg PO 1 tab Q6H PRN Administration Pain (Scale Score 7-10) Apixaban 5 mg 11/09/19 22:10 11/11/19 08:43 Eliquis PO 5 mg BID JOSE Administration Aspirin 81 mg 11/09/19 22:10 11/10/19 19:31 Aspirin Ec PO 81 mg HS JOSE Administration Carvedilol 6.25 mg 11/10/19 21:00 11/11/19 08:44 Coreg PO 6.25 mg Q12HR JOSE Administration Dextrose 12.5 gm 11/09/19 22:03 Dextrose 50% Syringe IV PUSH PRN PRN Hypoglycemia Protocol Glucagon 1 mg 11/09/19 22:03 Glucagon For Inj IM PRN PRN Hypoglycemia Protocol Glucose 15 gm 11/09/19 22:03 Glutose 15 PO PRN PRN Hypogl
--- NOTE | 2019-11-11 11:15 | PC.NURSE ---
This patient, Danny Valero, was transferred to [[id number]] on 11/11/19 at 1129. Personal belongings sent with patient. Belongings list checked and signed with receiving [ ]. Report given to [Sandra Linn RN @ 1110]. Appropriate documentation sent with patient. Pt traveled by wheelchair on room air. Belonging verified with patient and sent.
[2019-11-11] MEDS: SPIRONOLACTONE 25 MG TABLET PO (12:02)
[2019-11-11 13:26] LABS: Glucose Point of Care 159 (65-105)
[2019-11-11 17:15] LABS: Glucose Point of Care 136 (65-105)
[2019-11-11] MEDS: INSULIN GLARGINE (*BKC) 100 UNITS/ML 30 UNITS SUB-Q (20:27)
[2019-11-11] MEDS: ASPIRIN 81 MG ENTERIC TABLET PO (20:29)
[2019-11-11] MEDS: SIMVASTATIN 20 MG TABLET PO (20:30)
[2019-11-11 20:43] LABS: Glucose Point of Care 152 (65-105)
[2019-11-12] VITALS (18 sets, daily range): BP systolic 88–119; BP diastolic 47–67; PULSE 70–84; RESP 12–20; TEMP 35.8–37; O2SAT 96–99
[2019-11-12 05:24] LABS: Blood Urea Nitrogen 31 mg/dL (9-20); Calcium 8.5 mg/dL (8.4-10.2); Carbon Dioxide 26 mmol/L (22-30); Chloride 104 mmol/L (98-107); Estimated CRCL calculation 57 ml/min; Estimated Glomerular Filt Rate 47; Glucose 94 mg/dL (75-110); Potassium 4.1 mmol/L (3.4-5.0); Sodium 136 mmol/L (137-145)
[2019-11-12] MEDS: carvediloL 6.25 MG TABLET PO ×2 (08:22→20:56)
[2019-11-12] MEDS: lisinopriL 5 MG TABLET PO (08:22)
[2019-11-12] MEDS: APIXABAN 5 MG TABLET PO ×2 (08:23→17:40)
[2019-11-12] MEDS: SPIRONOLACTONE 25 MG TABLET PO (08:23)
[2019-11-12 08:27] LABS: Glucose Point of Care 101 (65-105)
--- NOTE | 2019-11-12 11:46 | PM.IMPN ---
Progress Note: A&P Assessment and Plan (1) Congestive heart failure (CHF): Qualifiers: Heart failure chronicity: acute on chronic Heart failure type: combined systolic and diastolic Qualified Code(s): I50.43 - Acute on chronic combined systolic (congestive) and diastolic (congestive) heart failure Code(s): I50.9 - Heart failure, unspecified Status: Acute Assessment and Plan: Cardiology consulted and appreciate input. Echocardiogram in August 2019 with EF 25-30%, grade 3 diastolic dysfunction, akinetic basal inferior wall and 1.1 x 0.6 cm fixed, circumscribed calcified echodensity on the atrial side of the anterior mitral valve leaflet unable to further characterize. On room air. Did receive IV Lasix on 11/10/2019. Presently on Coreg, lisinopril and spironolactone. Clinically improved and stable. Will continue to monitor. Telemetry reviewed on 11/12/2019 with heart rate remaining controlled. Will discuss with cardiology. Hopefully home soon. (2) Hypotension: Qualifiers: Hypotension type: unspecified hypotension type Qualified Code(s): I95.9 - Hypotension, unspecified Code(s): I95.9 - Hypotension, unspecified Status: Acute Assessment and Plan: Cardiology following as noted above. Did have initial improvement in blood pressure with normal saline bolus in the emergency room. Blood pressure reviewed on 11/12/2019 with low normal readings. Did have BP reading of 88/57 at midnight. Remains on Coreg, lisinopril and spironolactone. Symptomatically has otherwise improved. Will continue to monitor. (3) Subjective fever: Code(s): R50.9 - Fever, unspecified Status: Acute Assessment and Plan: Patient with subjective fever prior to admission. Has had no fevers here. COVID-19 testing negative with isolation discontinued. Will monitor. (4) Acute renal failure superimposed on stage 3 chronic kidney disease: Qualifiers: Acute renal failure type: unspecified Qualified Code(s): N17.9 - Acute kidney failure, unspecified; N18.3 - Chronic kidney disease, stage 3 (moderate) Code(s): N17.9 - Acute kidney failure, unspecified; N18.3 - Chronic kidney disease, stage 3 (moderate) Status: Acute Assessment and Plan: Creatinine higher than his usual at 1.90 on presentation. Creatinine now remains stable at 1.50 again today. Will continue to monitor. 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 Will continue Lantus and sliding scale insulin. Will continue to monitor. (6) MICHELE on CPAP: Code(s): G47.33 - Obstructive sleep apnea (adult) (pediatric); Z99.89 - Dependence on other enabling machines and devices Status: Chronic Assessment and Plan: May benefit from repeat sleep study as an outpatient. Will continue to monitor while here. (7) DVT prophylaxis: Code(s): Z29.9 - Encounter for prophylactic measures, unspecified Status: Acute Assessment and Plan: On Eliquis. Time Spent With Patient Time with patient: 15 - 25 minutes Subjective Date/time seen: 11/12/19 11:46 Interval history: Date of Service: 11/11/2019. Admitted with hypotension, CHF exacerbation. Continues to improve. Reports only minimal shortness of breath with exertion at this. No chest pain or pressure. No headache o
[2019-11-12 11:56] LABS: Glucose Point of Care 161 (65-105)
--- NOTE | 2019-11-12 15:09 | PM.PNCARD ---
Progress Note: A&P Assessment and Plan (1) Subjective fever: Code(s): R50.9 - Fever, unspecified Status: Acute Assessment and Plan: He stated that he felt like he had the flu. He has had subjective fevers and chills. Also complained of night sweats. He had a cough. He recently had a tick bite also. This was while out turkey hunting. COVID testing negative He may need tick-borne Disease workup also but will defer to hospitalist Blood cultures negative thus far. (2) Hypotension: Qualifiers: Hypotension type: unspecified hypotension type Qualified Code(s): I95.9 - Hypotension, unspecified Code(s): I95.9 - Hypotension, unspecified Status: Acute Assessment and Plan: Carvedilol was reduced to 6.25 mg every 12 hours. Had blood pressure 88/57 and 93/60 to during the sleep hours. He was asymptomatic. He has not been receiving any furosemide. Will check a set of orthostatic blood pressures (3) Congestive heart failure (CHF): Qualifiers: Heart failure chronicity: acute on chronic Heart failure type: combined systolic and diastolic Qualified Code(s): I50.43 - Acute on chronic combined systolic (congestive) and diastolic (congestive) heart failure Code(s): I50.9 - Heart failure, unspecified Status: Acute Assessment and Plan: HFrEF. Mild congestive changes were noted on his chest x-ray on admission. Repeat chest x-ray in the morning. Continue carvedilol, spironolactone and lisinopril. reported that he was told to drink only 3 glasses of water per day. She feels that he became dehydrated. Creatinine is almost to baseline. Discussed how much fluid he should not exceed in a 24 hour period (2 L) . He does not add salt on his food and his does not cook with salt. (4) MICHELE on CPAP: Code(s): G47.33 - Obstructive sleep apnea (adult) (pediatric); Z99.89 - Dependence on other enabling machines and devices Status: Chronic Assessment and Plan: Compliance with CPAP is imperative. (5) Elevated troponin: Code(s): R79.89 - Other specified abnormal findings of blood chemistry Status: Acute Assessment and Plan: Not related to acute coronary syndrome. Ischemic etiology of his LV dysfunction has not yet been ruled out. Cardiac catheterization was discussed by Dr Barahona in August. Due to the COVID pandemic as well as his renal function this has not yet been performed. A stress test was negative for ischemia in 2018. (6) Acute renal failure superimposed on stage 3 chronic kidney disease: Qualifiers: Acute renal failure type: unspecified Qualified Code(s): N17.9 - Acute kidney failure, unspecified; N18.3 - Chronic kidney disease, stage 3 (moderate) Code(s): N17.9 - Acute kidney failure, unspecified; N18.3 - Chronic kidney disease, stage 3 (moderate) Status: Acute Assessment and Plan: Creatinine nearing wound is most likely his baseline. Check BNP in the morning. Additional Plan 14 minutes conversation with . Reviewed the information that she had questions about. Cardiac catheterization is not being at this time due clinical presentation and renal function. Transesophageal echocardiogram which was discussed in August was not clinically indicated. Blood cultures were negative. CRP an ESR were within normal limits. Echo reexamined and it was thought that the possible abnormality was just part of the valve. Discussed his renal function. Renal function was not normal in March of 2018. She was under the impression that his kidneys were normal. She was also the impression that his heart was strong she cannot understand how his heart muscle could be so weak. He is consistent with wearing his CPAP at home. Reviewed orders for in
[2019-11-12 16:47] LABS: Glucose Point of Care 119 (65-105)
[2019-11-12] MEDS: ACETAMINOPHEN 325 MG TABLET 650 MG PO (19:54)
[2019-11-12 20:12] LABS: Glucose Point of Care 165 (65-105)
[2019-11-12] MEDS: INSULIN GLARGINE (*BKC) 100 UNITS/ML 30 UNITS SUB-Q (20:56)
[2019-11-12] MEDS: SIMVASTATIN 20 MG TABLET PO (20:56)
[2019-11-12] MEDS: ASPIRIN 81 MG ENTERIC TABLET PO (20:56)
[2019-11-13] VITALS (15 sets, daily range): BP systolic 89–122; BP diastolic 32–68; PULSE 57–94; RESP 18–20; TEMP 35.8–36.4; O2SAT 96–99
[2019-11-13 05:19] LABS: Blood Urea Nitrogen 31 mg/dL (9-20); Calcium 8.8 mg/dL (8.4-10.2); Carbon Dioxide 23 mmol/L (22-30); Chloride 105 mmol/L (98-107); Estimated CRCL calculation 55 ml/min; Estimated Glomerular Filt Rate 47; Glucose 100 mg/dL (75-110); Magnesium 2.3 mg/dL (1.6-2.3); Potassium 4.2 mmol/L (3.4-5.0); Sodium 137 mmol/L (137-145)
[2019-11-13 05:20] LABS: NT Pro B Type Natriuretic Pept 2810 PG/ML (5-100)
[2019-11-13 07:56] LABS: Glucose Point of Care 102 (65-105)
[2019-11-13] MEDS: lisinopriL 5 MG TABLET PO (09:32)
[2019-11-13] MEDS: carvediloL 6.25 MG TABLET PO (09:32)
[2019-11-13] MEDS: SPIRONOLACTONE 25 MG TABLET PO (09:32)
[2019-11-13] MEDS: APIXABAN 5 MG TABLET PO (09:32)
--- NOTE | 2019-11-13 10:53 | PM.IMPN ---
Progress Note: A&P Assessment and Plan (1) Congestive heart failure (CHF): Qualifiers: Heart failure chronicity: acute on chronic Heart failure type: combined systolic and diastolic Qualified Code(s): I50.43 - Acute on chronic combined systolic (congestive) and diastolic (congestive) heart failure Code(s): I50.9 - Heart failure, unspecified Status: Acute Assessment and Plan: Cardiology consulted and appreciate input. Echocardiogram in August 2019 with EF 25-30%, grade 3 diastolic dysfunction, akinetic basal inferior wall and 1.1 x 0.6 cm fixed, circumscribed calcified echodensity on the atrial side of the anterior mitral valve leaflet unable to further characterize. Remains on room air. Did receive IV Lasix on 11/10/2019. Now on Coreg, lisinopril and spironolactone. Clinically has improved and remains stable. Telemetry reviewed on 11/13/2019 with heart rate remaining controlled. Repeat chest xray in process. Discussed with cardiology. Probable discharge later today. (2) Hypotension: Qualifiers: Hypotension type: unspecified hypotension type Qualified Code(s): I95.9 - Hypotension, unspecified Code(s): I95.9 - Hypotension, unspecified Status: Acute Assessment and Plan: Cardiology following as noted above. Did have initial improvement in blood pressure with normal saline bolus in the emergency room. Blood pressure reviewed on 11/13/2019. Blood pressure readings now being taken manually and normal. Rechecking orthostatics manually. Will continue Coreg, lisinopril and spironolactone. (3) Subjective fever: Code(s): R50.9 - Fever, unspecified Status: Acute Assessment and Plan: Patient with subjective fever prior to admission. Has had no fevers here. COVID-19 testing negative with isolation discontinued. Will not initiate testing for tick-borne disease with no rash or persistent symptoms. (4) Acute renal failure superimposed on stage 3 chronic kidney disease: Qualifiers: Acute renal failure type: unspecified Qualified Code(s): N17.9 - Acute kidney failure, unspecified; N18.3 - Chronic kidney disease, stage 3 (moderate) Code(s): N17.9 - Acute kidney failure, unspecified; N18.3 - Chronic kidney disease, stage 3 (moderate) Status: Acute Assessment and Plan: Creatinine higher than his usual at 1.90 on presentation. Creatinine now remains stable and unchanged at 1.50 today which is within his baseline per records here. (5) Diabetes: Qualifiers: Chronic kidney disease stage: stage 3 (moderate) Diabetes mellitus complication detail: with chronic kidney disease Diabetes mellitus complication status: with kidney complications Diabetes mellitus exterminator helper termite insulin use: with exterminator helper termite use Diabetes mellitus type: type 2 Qualified Code(s): E11.22 - Type 2 diabetes mellitus with diabetic chronic kidney disease; N18.3 - Chronic kidney disease, stage 3 (moderate); Z79.4 - terminal press operator (current) use of insulin Code(s): E11.9 - Type 2 diabetes mellitus without complications Status: Chronic Assessment and Plan: Glucose reviewed on 11/13/2019. Glucose remains well controlled. Will continue Lantus and sliding scale insulin. Will continue to monitor while here. (6) MICHELE on CPAP: Code(s): G47.33 - Obstructive sleep apnea (adult) (pediatric); Z99.89 - Dependence on other enabling machines and devices Status: Chronic Assessment and Plan: May benefit from repeat sleep study as an outpatient. (7) DVT prophylaxis: Code(s): Z29.9 - Encounter for prophylactic measures, unspecified Status: Acute Assessment and Plan: On Eliquis. Time Spent With Patient Time with patient: 15 - 25 minutes Subjective Date/time seen: 11/13/19 10:53 Interval history: Date of Service: 11/13/2019. Admitted with hypotension, CHF exacerbation. Feels better. Denies shortness of breath with exertion. N
--- NOTE | 2019-11-13 11:08 | PM.PNCARD ---
Progress Note: A&P Assessment and Plan (1) Subjective fever: Code(s): R50.9 - Fever, unspecified Status: Acute Assessment and Plan: He stated that he felt like he had the flu. He has had subjective fevers and chills. Also complained of night sweats. He had a cough. He recently had a tick bite also. This was while out turkey hunting. COVID testing negative Blood cultures are still negative thus far. (2) Hypotension: Qualifiers: Hypotension type: unspecified hypotension type Qualified Code(s): I95.9 - Hypotension, unspecified Code(s): I95.9 - Hypotension, unspecified Status: Acute Assessment and Plan: Carvedilol was reduced to 6.25 mg every 12 hours. Not orthostatics. Continue spironolactone and lisinopril 5 mg daily. (3) Congestive heart failure (CHF): Qualifiers: Heart failure chronicity: acute on chronic Heart failure type: combined systolic and diastolic Qualified Code(s): I50.43 - Acute on chronic combined systolic (congestive) and diastolic (congestive) heart failure Code(s): I50.9 - Heart failure, unspecified Status: Acute Assessment and Plan: HFrEF. Mild congestive changes were noted on his chest x-ray on admission. BNP is down from admission. Chest x-ray is pending. Continue carvedilol, spironolactone and lisinopril. Continue sodium restriction. Should not drink more than 2 L per day. (4) MICHELE on CPAP: Code(s): G47.33 - Obstructive sleep apnea (adult) (pediatric); Z99.89 - Dependence on other enabling machines and devices Status: Chronic Assessment and Plan: Compliance with CPAP is imperative. Reports that he is compliant. (5) Elevated troponin: Code(s): R79.89 - Other specified abnormal findings of blood chemistry Status: Acute Assessment and Plan: Not related to acute coronary syndrome. Ischemic etiology of his LV dysfunction has not yet been ruled out. Cardiac catheterization was discussed by Dr Barahona in August. Due to the COVID pandemic as well as his renal function this has not yet been performed. A stress test was negative for ischemia in 2018. (6) Acute renal failure superimposed on stage 3 chronic kidney disease: Qualifiers: Acute renal failure type: unspecified Qualified Code(s): N17.9 - Acute kidney failure, unspecified; N18.3 - Chronic kidney disease, stage 3 (moderate) Code(s): N17.9 - Acute kidney failure, unspecified; N18.3 - Chronic kidney disease, stage 3 (moderate) Status: Acute Assessment and Plan: Renal function is stable. Upon chart review he has had renal impairment dating as far back as 2013. Additional Plan OK to discharge from cardiac standpoint See discharge instructions for follow-up Plan discussed with Dr. Delaney 1120 11/13/2019 Subjective Date/time seen: 11/13/19 11:08 Interval history: Follow-up for: Persistent atrial fibrillation, chronic anticoagulation, severe LV dysfunction, dizziness, hypotension Date of service: 11/13/2019 Subjective: No chest discomfort, shortness of breath, lightheadedness, dizziness or palpitations. No symptoms when stood for orthostatic blood pressures Review of Systems Constitutional: Constitutional: Denies body ache(s), Denies chills, Denies excessive sweating, Denies fatigue, Denies headache(s) and Denies weakness Eyes: Eyes: Denies blurry vision ENT: Reports Normal hearing present, Denies headache(s) and Denies lip swelling Cardiovascular: Cardiovascular: Denies chest pain, Reports dyspnea on exertion, Denies orthopnea and Denies paroxysmal nocturnal dyspnea Respiratory: Respiratory: Reports dyspnea on exertion Gastrointestinal: Gastrointestinal: Denies abdominal pain Genitourinary:
[2019-11-13 12:00] LABS: Glucose Point of Care 148 (65-105)
--- NOTE | 2019-11-13 21:01 | PM.DS ---
DS: Admitting Diagnosis Admitting Diagnosis Admitting Diagnosis: Hypotension, unspecified DS: Discharge Diagnosis Discharge Diagnosis (1) Congestive heart failure (CHF): Qualifiers: Heart failure chronicity: acute on chronic Heart failure type: combined systolic and diastolic Qualified Code(s): I50.43 - Acute on chronic combined systolic (congestive) and diastolic (congestive) heart failure Code(s): I50.9 - Heart failure, unspecified Status: Acute (2) Hypotension: Qualifiers: Hypotension type: unspecified hypotension type Qualified Code(s): I95.9 - Hypotension, unspecified Code(s): I95.9 - Hypotension, unspecified Status: Acute (3) Subjective fever: Code(s): R50.9 - Fever, unspecified Status: Acute (4) Acute renal failure superimposed on stage 3 chronic kidney disease: Qualifiers: Acute renal failure type: unspecified Qualified Code(s): N17.9 - Acute kidney failure, unspecified; N18.3 - Chronic kidney disease, stage 3 (moderate) Code(s): N17.9 - Acute kidney failure, unspecified; N18.3 - Chronic kidney disease, stage 3 (moderate) Status: Acute (5) Diabetes: Qualifiers: Chronic kidney disease stage: stage 3 (moderate) Diabetes mellitus complication detail: with chronic kidney disease Diabetes mellitus complication status: with kidney complications Diabetes mellitus intermediate designer insulin use: with intermediate designer use Diabetes mellitus type: type 2 Qualified Code(s): E11.22 - Type 2 diabetes mellitus with diabetic chronic kidney disease; N18.3 - Chronic kidney disease, stage 3 (moderate); Z79.4 - intermediate school teacher (current) use of insulin Code(s): E11.9 - Type 2 diabetes mellitus without complications Status: Chronic (6) MICHELE on CPAP: Code(s): G47.33 - Obstructive sleep apnea (adult) (pediatric); Z99.89 - Dependence on other enabling machines and devices Status: Chronic DS: Summary Hospital Course Reason for hospitalization: Weakness and sweating. Hospital Course: Date of Service of Discharge: November 13, 2019. History of Present Illness: Danny Valero is a 69 year old male with a past medical history of chronic kidney disease, obstructive sleep apnea with CPAP, and recent diagnosis of systolic and diastolic congestive heart failure as well as pulmonary hypertension who presented to the ER via EMS with complaint of weakness, diaphoresis and subjective fever since the 16th. he reports Xiang in bed most of the time November 07, 2019. Reports intermittent sweats and chills but did not have a thermometer to take his temperature. He has had some nasal congestion but no rhinorrhea cough. No nausea, vomiting or diarrhea. Patient reports a day or so prior to presentation had been vacuuming out the swimming pool when he noticed acute onset of shortness of breath as well as back pain. That he has been laying in bed all except for an hour to since the . He would have intermittent sweats and chills. He did not have a thermometer to take his temperature. He had noticed some nasal congestion but denies any rhinorrhea or cough. He has not had any nausea vomiting or diarrhea. His last bowel movement was a couple of days ago. He denies any myalgias but has been having fatigue. Evidently a day or so before that he had been vacuuming out the swimming pool and had noticed a little bit of increased back pain with that. He has noticed some increase in orthopnea recently. With continuing symptoms, he did present to the emergency room for further evaluation. He was noted to have hypotension for which he was given IV fluids as well as exacerbation of CHF. As result, he was admitted for further evaluation and treatment with cardiology consultation. Course in Hospital: Patient was placed in the IMU where he remained for the duration of his stay. He was started on IV Lasix. Adjustments were made to his other medications given his hypotension. He was davina
== END 2019-11-13 14:15 | disposition home or self-care (01) | DRG 291 ==
LOC: ANHED 13:55 → ANHIMU 17:27 → ANHICU 11-18 09:41 → ANHIMU 11-18 09:41
PROVIDERS: Internal Medicine; Internal Medicine Cardiovascular Disease; Nurse Practitioner Adult Health; Admitting Provider Family Medicine; Emergency Provider Emergency Medicine; PCP Student in an Organized Health Care Education/Training Program; Visit Provider Hospitalist
DX: I13.0 Hypertensive heart and chronic kidney disease with heart failure and stage 1 through stage 4 chronic kidney disease, or unspecified chronic kidney disease (principal); I50.43 Acute on chronic combined systolic (congestive) and diastolic (congestive) heart failure; N17.9 Acute kidney failure, unspecified; N18.3 Chronic kidney disease, stage 3 (moderate); E11.22 Type 2 diabetes mellitus with diabetic chronic kidney disease; Z20.828 Contact with and (suspected) exposure to other viral communicable diseases; G47.33 Obstructive sleep apnea (adult) (pediatric); R50.9 Fever, unspecified; R79.89 Other specified abnormal findings of blood chemistry; I95.9 Hypotension, unspecified; T14.8XXA Other injury of unspecified body region, initial encounter; L08.9 Local infection of the skin and subcutaneous tissue, unspecified; W57.XXXA Bitten or stung by nonvenomous insect and other nonvenomous arthropods, initial encounter
CPT/HCPCS: 36415; 36600; 71046; 80048; 80053; 81001; 82375; 82805; 83050; 83605; 83735; 83880; 84443; 84484; 85025; 85055; 85610; 85730; 86140; 87040; 87635; 93005; 96361; 96374; 99285; A9270; C9803; J1815; J1940; J7120; U0003

== ENCOUNTER 2019-11-20 08:07 | Outpatient (CLI) | payer OTHER, SELFPAY ==
[2019-11-20 08:44] LABS: Blood Urea Nitrogen 29 mg/dL (9-20); Calcium 9.2 mg/dL (8.4-10.2); Carbon Dioxide 20 mmol/L (22-30); Chloride 109 mmol/L (98-107); Estimated Glomerular Filt Rate 47; Glucose 113 mg/dL (75-110); Sodium 137 mmol/L (137-145)
== END 2019-11-20 08:08 | disposition home or self-care (01) ==
LOC: ANHLAB 08:09
PROVIDERS: PCP Student in an Organized Health Care Education/Training Program; Visit Provider Internal Medicine Cardiovascular Disease
DX: I42.9 Cardiomyopathy, unspecified (principal)
CPT/HCPCS: 36415; 80048

== ENCOUNTER 2019-11-23 00:27 | Outpatient (CLI) | payer OTHER, SELFPAY ==
[2019-11-23 16:41] LABS: SARS-CoV-2 RNA PCR Negative
== END 2019-11-23 00:28 | disposition home or self-care (01) ==
LOC: ANHCOVIDDT 00:27
PROVIDERS: PCP Student in an Organized Health Care Education/Training Program; Visit Provider Specialist
DX: Z01.812 Encounter for preprocedural laboratory examination (principal); Z20.828 Contact with and (suspected) exposure to other viral communicable diseases
CPT/HCPCS: 87635; C9803; U0003

== ENCOUNTER 2019-11-25 05:16 | Day surgery (SDC) | payer OTHER, SELFPAY ==
[2019-11-23 17:00] VITALS: BMI 32.5
[2019-11-25] VITALS (12 sets, daily range): BP systolic 103–150; BP diastolic 57–84; PULSE 60–84; RESP 14–17; TEMP 36.6; O2SAT 96–100; BMI 32.5
[2019-11-25 08:44] LABS: Basophils Absolute Auto 0.1 K/mm3 (0.0-0.1); Basophils Percent Auto 0.7 % (0.2-1.2); Eosinophils Absolute Auto 0.1 K/mm3 (0-0.3); Eosinophils Percent Auto 1.4 % (0-4.4); Hematocrit 40.3 % (42.0-52.0); Hemoglobin 13.4 g/dL (14.0-18.0); Immature Granulocyte Absolute 0.03 K/mm3 (0.00-0.031); Immature Granulocyte Percent A 0.4 % (0-0.5); Lymphocytes Absolute Auto 2.75 K/mm3 (0.9-3.2); Lymphocytes Percent Auto 33.9 % (18.3-44.2); Mean Corpuscular HGB Conc 33.3 g/dl (32-36); Mean Corpuscular Hemoglobin 32.5 pg (26-34); Mean Corpuscular Volume 97.8 fl (80-100); Monocytes Absolute Auto 0.5 K/mm3 (0.1-0.6); Monocytes Percent Auto 6.5 % (2.6-8.5); Neutrophils Absolute Auto 4.6 K/mm3 (1.3-6.7); Neutrophils Percent Auto 57.1 % (45.5-73.1); Platelet Count Result 181 k/mm3 (150-375); Red Blood Count 4.12 M/mm3 (4.6-6.20); Red Cell Distribution Width 16.5 % (11.5-14.5); White Blood Count 8.1 K/mm3 (4.5-10.0)
[2019-11-25 08:54] LABS: INR 1.1; Prothrombin Time 13.4 Seconds (11.1-14.7)
[2019-11-25 08:55] LABS: Blood Urea Nitrogen 28 mg/dL (9-20); Calcium 9.2 mg/dL (8.4-10.2); Carbon Dioxide 20 mmol/L (22-30); Chloride 108 mmol/L (98-107); Estimated CRCL calculation 51 ml/min; Estimated Glomerular Filt Rate 43; Glucose 106 mg/dL (75-110); Potassium 4.9 mmol/L (3.4-5.0); Sodium 137 mmol/L (137-145)
--- NOTE | 2019-11-25 10:40 | P.PCNCC_ITS ---
Cardiac Cath Procedure Note Date of procedure:: 11/25/19 Performing physician:: Jason Chicas MD Indication:: Left ventricular systolic dysfunction Brief clinical history:: this is a 69-year-old man with recently diagnosed left ventricular systolic failure and congestive heart failure. To determine if there is an ischemic basis to this and angiography has been recommended Procedure Procedure performed:: coronary angiography left ventricular hemodynamics measurement Sedation/Medication given:: fentanyl 50 mg Versed 2 mg case start time 10:15 a.m. case end time 10:26 a.m. sedation provided by Dru Lester RN, trained observer Access site:: right femoral artery Estimated blood loss:: 15-20 cc Procedure note:: patient was brought to the cardiac catheterization lab in the postabsorptive state where the right femoral triangle was prepared and draped in the usual fashion. Anesthesia was provided with 1% lidocaine infiltrated locally. Using the modified Seldinger technique the right femoral artery was punctured and a 5 Swedish vascular sheath was placed. After this left heart catheterization was carried out. I used a 5 Swedish angled pigtail catheter to measure left-sided hemodynamics and pullback pressures across the aortic valve. Because of chronic kidney disease I did not inject the left ventriculogram. Following this the pigtail catheter was removed. The left coronary artery was then injected using a 5 Swedish FL4 catheter and the right coronary was injected using a 5 Swedish JR4 catheter. The procedure was then terminated the patient was taken to the holding area for manual sheath removal. The procedure was well tolerated without any apparent complications. There was no groin hematoma upon leaving the cardiac catheterization lab. Findings:: Central aortic pressure is 110/54 left ventricle 110 over for end- diastolic pressure of 18. There is no pullback gradient across the aortic valve. The left main coronary artery is widely patent the left anterior descending is a moderate caliber artery extending down to the case apex the LAD and its branches are angiographically unremarkable the circumflex is a moderate caliber artery giving rise to the marginal branches the circumflex is smooth and angiographically unremarkable right coronary artery is large caliber and dominant to the posterior circulation and is free of disease. Conclusion:: Right coronary dominant circulation with no evidence of coronary artery disease modestly elevated left ventricular end-diastolic pressure no left ventriculogram performed as detailed above in an effort to minimize contrast exposure Jason Chicas MD [facility]
--- NOTE | 2019-11-25 11:15 | SUR.PHASEII ---
1115-Firm pressure removed by Salvador Sanchez RN. Groin soft and non-tender, no evidence of bleeding or hematoma noted. AOx4. Strong right pedal pulse noted. Will continue to monitor.
--- NOTE | 2019-11-25 16:50 | SUR.PHASEII ---
1625-pt given D/C orders and instructions. Questions answered and verbalized understanding. AOx4. Groin soft and non-tender, no evidence of bleeding or hematoma noted. Strong right pedal pulse noted. PIV removed intact. Taken via wheelchair to waiting vehicle. No distress noted or verbalized at time of departure.
--- NOTE | 2019-11-25 16:57 | SUR.PHASEII ---
1515-pt into a recliner chair after four hours of bedrest completed. AOx4. Groin soft and non-tender, no evidence of bleeding or hematoma noted. Strong right pedal pulse noted. Will continue to monitor.
== END 2019-11-25 16:25 | disposition home or self-care (01) ==
PROVIDERS: PCP Student in an Organized Health Care Education/Training Program; Visit Provider Specialist
PROC: 4A023N7 Measurement of Cardiac Sampling and Pressure, Left Heart, Percutaneous Approach (ICD-10-PCS; CPT 93452; principal; 2019-11-25 10:00)
DX: I50.20 Unspecified systolic (congestive) heart failure (principal); I42.9 Cardiomyopathy, unspecified; I48.0 Paroxysmal atrial fibrillation; I13.0 Hypertensive heart and chronic kidney disease with heart failure and stage 1 through stage 4 chronic kidney disease, or unspecified chronic kidney disease; N18.3 Chronic kidney disease, stage 3 (moderate); E78.5 Hyperlipidemia, unspecified; G47.33 Obstructive sleep apnea (adult) (pediatric); Z79.01 Long term (current) use of anticoagulants; Z79.82 Long term (current) use of aspirin; Z79.4 Long term (current) use of insulin
CPT/HCPCS: 36415; 80048; 85025; 85610; 93458; C1887; C1894; J1644; J2250; J3010; J7040

== ENCOUNTER 2019-11-30 08:05 | Outpatient (CLI) | payer OTHER, SELFPAY ==
[2019-11-30 08:42] LABS: Blood Urea Nitrogen 26 mg/dL (9-20); Calcium 9.3 mg/dL (8.4-10.2); Carbon Dioxide 19 mmol/L (22-30); Chloride 108 mmol/L (98-107); Estimated Glomerular Filt Rate 50; Glucose 138 mg/dL (75-110); Potassium 4.5 mmol/L (3.4-5.0); Sodium 135 mmol/L (137-145)
== END 2019-11-30 08:06 | disposition home or self-care (01) ==
PROVIDERS: PCP Student in an Organized Health Care Education/Training Program; Visit Provider Nurse Practitioner Adult Health
DX: I50.20 Unspecified systolic (congestive) heart failure (principal); Z98.890 Other specified postprocedural states
CPT/HCPCS: 36415; 80048

== ENCOUNTER 2020-04-14 11:15 | Outpatient (CLI) | payer OTHER, SELFPAY ==
[2020-04-14 12:55] LABS: Anion Gap 11 mmol/L (8-16); Blood Urea Nitrogen 28 mg/dL (9-20); Calcium 9.4 mg/dL (8.4-10.2); Carbon Dioxide 23 mmol/L (22-30); Chloride 104 mmol/L (98-107); Estimated Glomerular Filt Rate 47; Glucose 168 mg/dL (75-110); Potassium 5.4 mmol/L (3.4-5.0); Sodium 138 mmol/L (137-145)
== END 2020-04-14 11:16 | disposition home or self-care (01) ==
PROVIDERS: PCP Student in an Organized Health Care Education/Training Program; Visit Provider Student in an Organized Health Care Education/Training Program
DX: E78.5 Hyperlipidemia, unspecified (principal); R79.89 Other specified abnormal findings of blood chemistry
CPT/HCPCS: 36415; 80048

== ENCOUNTER 2020-05-02 09:57 | Outpatient (CLI) | payer OTHER, SELFPAY ==
[2020-05-02 11:02] LABS: Anion Gap 10 mmol/L (8-16); Blood Urea Nitrogen 23 mg/dL (9-20); Carbon Dioxide 22 mmol/L (22-30); Chloride 107 mmol/L (98-107); Estimated Glomerular Filt Rate 50; Glucose 181 mg/dL (75-110); Potassium 4.7 mmol/L (3.4-5.0); Sodium 139 mmol/L (137-145)
== END 2020-05-02 09:58 | disposition home or self-care (01) ==
LOC: ANHLAB 10:02
PROVIDERS: PCP Student in an Organized Health Care Education/Training Program; Visit Provider Student in an Organized Health Care Education/Training Program
DX: E87.5 Hyperkalemia (principal)
CPT/HCPCS: 36415; 80048

== ENCOUNTER 2021-04-29 13:57 | Inpatient (IN) | payer OTHER, SELFPAY ==
[2021-04-29] VITALS (8 sets, daily range): BP systolic 107–178; BP diastolic 73–112; PULSE 86–105; RESP 18–30; TEMP 35.8–36.7; O2SAT 94–99; BMI 36.6
--- NOTE | ~2021-04-29 | XR_ITS ---
XR chest 1V portable DATE: 04/29/2021 14:40 INDICATION: Shortness of breath TECHNIQUE: Portable upright AP chest on 04/29/2021 at 1438 hours COMPARISON: 11/13/2019 PA and lateral chest FINDINGS: Status post sternotomy. Left-sided transvenous pacemaker device with leads overlying right atrium and right ventricle. Cardiomegaly. There is mild pulmonary vascular congestion and redistribution. There is mild right ple ural effusion. This mild prominence of the minor fissure consistent with subpleural edema. There is infiltrate or atelectasis in the lower lung zones, right greater than left. IMPRESSION: Congestive heart failure, mild right pleural effusion Mild infiltrate or atelectasis in the lower lung zones, right greater than left Reviewed, dictated and finalized at location A.
--- NOTE | ~2021-04-29 | US_ITS ---
US venous doppler [facility] DATE: 04/30/2021 11:11 INDICATION: Swelling of the lower extremities TECHNIQUE: Real-time and color flow imaging and Doppler analysis of the veins of the lower extremitie s COMPARISON: None FINDINGS: The greater saphenous veins are patent. There is spontaneous and phasic flow and normal aug mentation and color flow signal and normal compression of the deep veins of the lower extremities. IMPRESSION: No evidence of deep venous thrombosis of the lower extremities Reviewed, dictated and finalized at Location [facility]. Reviewed, dictated and finalized at location A. [employer]
--- NOTE | 2021-04-29 14:09 | ECG_ITS ---
Measurements Intervals [place] Rate: 91 P: CO: 0 QRS: -52 QRSD: 145 T: 137 QT: 410 QTc: 506 Interpretive Statements ATRIAL FIBRILLATION ELECTRONIC VENTRICULAR COMPLEXES AND VENTRICULAR PREMATURE COMPLEXES INTRAVENTRICULAR CONDUCTION DELAY ST-T WAVE ABNORMALITY IN HIGH LATERAL LEADS- CONSIDER ISCHEMIA BASELINE ARTIFACT- II, III, AVR, AVL, AVF, V1-V6 ABNORMAL ECG Electronically Signed On 04-30-2021 13:21:45 [employer] by Roberto Mcmahan D.O.
[2021-04-29 14:17] LABS: Basophils Absolute Auto 0.1 K/mm3 (0.0-0.1); Basophils Percent Auto 0.4 % (0.2-1.2); Eosinophils Absolute Auto 0.1 K/mm3 (0-0.3); Eosinophils Percent Auto 0.9 % (0-4.4); Hematocrit 43.6 % (42.0-52.0); Hemoglobin 13.6 g/dL (14.0-18.0); Immature Granulocyte Absolute 0.12 K/mm3 (0.00-0.031); Immature Granulocyte Percent A 1.1 % (0-0.5); Lymphocytes Absolute Auto 1.14 K/mm3 (0.9-3.2); Lymphocytes Percent Auto 10.2 % (18.3-44.2); Mean Corpuscular HGB Conc 31.2 g/dl (32-36); Mean Corpuscular Volume 99.3 fl (80-100); Mean Platelet Volume 10.7 fl (7.4-10.4); Monocytes Absolute Auto 0.8 K/mm3 (0.1-0.6); Monocytes Percent Auto 6.9 % (2.6-8.5); Neutrophils Percent Auto 80.5 % (45.5-73.1); Nucleated Red Blood Cells Perc 0.2 % (0.0-0.2); Platelet Count Result 156 k/mm3 (150-375); Red Blood Count 4.39 M/mm3 (4.6-6.20); Red Cell Distribution Width 14.9 % (11.5-14.5); White Blood Count 11.2 K/mm3 (4.5-10.0)
[2021-04-29 14:28] LABS: Alveolar/Arterial O2 Gradient 64.5 mmHg; Carboxyhemoglobin 1.1 % THb (0-2.0); Fractional Inspired Oxygen 21 %; HCO3 ABG 20.4 mEq/l (22.0-26.0); Methemoglobin ABG 0.2 %THb (0-1.5); Oxygen Content ABG 15.6 %vol (16.0-22.0); Oxyhemoglobin 82.1 % THb (90.0-100.0); PCO2 ABG 31.8 mmHg (35.0-45.0); PO2 FiO2 Ratio Arterial Blood 2.25 %; Reduced Hemoglobin 16.6 %THb (0-5.0); Total Hemoglobin 13.5 g/dL (12.0-18.0); pH ABG 7.425 (7.350-7.450)
[2021-04-29 14:29] LABS: INR 1.3; Prothrombin Time 16.3 Seconds (11.1-14.7)
[2021-04-29 14:30] LABS: Partial Thromboplastin Time 28.8 SECONDS (22.3-36.8)
[2021-04-29 14:31] LABS: PO2 ABG 47.2 mmHg (80.0-100.0)
[2021-04-29 14:32] LABS: Device ROOM AIR; Modified Allen's Test Pass; Oxygen Saturation ABG 84.6 % (95.0-100.0); Site Drawn LEFT RADIAL
--- NOTE | 2021-04-29 14:35 | ED.SOB ---
HPI - SOB/Dyspnea General Chief Complaint: Shortness of Breath/Dyspnea Stated Complaint: cant breathe Time Seen by Provider: 04/29/21 14:00 Source: patient, RN notes reviewed and old records reviewed Mode of arrival: ambulatory Limitations: no limitations History of Present Illness HPI Narrative: This is a 70 year old male with history of DM, CHF, hypertension who presents for evaluation of shortness of breath. He reports shortness of breath for 1 week that has gradually worsened today. He was able to walk 100 ft last week and today he almost did not make it to his house. He called his PCP yesterday who recommended for patient to double his diuretic. He took a double dose of his diuretic today. He denies associated wheezing, chest pain, nausea, or vomiting. He reports mild lower extremity edema and a 6 pound weight gain in past week. He also reports worsening cough for 8 months, and he had a CT chest with IV contrast last week. He reports he was told no findings were found to explain his cough. According to recordings, he had normal cardiac cath 1 year ago. Related Data Home Medications Medication Instructions Recorded Confirmed Lantus Solostar U-100 Insulin 38 unit SUBCUT HS 09/18/19 04/29/21 simvastatin 20 mg PO HS 09/18/19 04/29/21 aspirin 81 mg PO HS 11/09/19 04/29/21 hydrocodone-acetaminophen 1 tablet PO Q6H PRN 11/09/19 04/29/21 dapagliflozin [Farxiga] 5 mg PO QAM 04/29/21 04/29/21 furosemide 20 mg PO QAM 04/29/21 04/29/21 metoprolol succinate 50 mg PO HS 04/29/21 04/29/21 Allergies Allergy/AdvReac Type Severity Reaction Status Date / Time No Known Allergies Allergy Verified 11/23/19 18:00 Review of Systems Review of Systems: All systems reviewed & are unremarkable except as noted in HPI and below Constitutional: Constitutional: Denies chills and Denies fever(s) Cardiovascular: Cardiovascular: Denies chest pain Respiratory: Respiratory: Reports cough and Reports dyspnea Gastrointestinal: Gastrointestinal: Denies abdominal pain, Denies nausea and Denies vomiting [facility] Past Medical History Medical History (Updated 04/30/21 @ 00:11 by Joy Ghosh MD) Arthritis Atrial fibrillation Back pain Cardiomyopathy Left ventricular chamber dimension is severely enlarged. Left ventricular systolic function is severely reduced, estimated at 25-30%. The left ventricular diastolic function is grade III diastolic dysfunction. Akinetic basal inferior wall. Left atrial chamber dimension is severely enlarged. Right atrial chamber dimension is severely enlarged. There is mild eccentric aortic valve regurgitation which may underestimate severity. Chronic kidney disease, stage 3 Baseline creatinine around 1.5-1.9 Combined systolic and diastolic congestive heart failure New diagnosis August 2019 with EF 25-30% and grade 3 diastolic dysfunction CVA (cerebral vascular accident) Per patient however the patient had MRI March 2018 which demonstrated no evidence of prior infarct only chronic small-vessel ischemic disease Diabetes Essential hypertension Hyperlipidemia Mitral valve disorder The mitral valve has thickened leaflets. There is mild mitral valve regurgitation. The mitral valve annulus is mildly calcified. 1.1 x 0.6 cm fixed, circumscribed calcified echodensity on the atrial side of the anterior mitral valve leaflet unable to be further characterized. Differential includes calcified sub mitral apparatus, vegetation, mass unlikely thrombus. Clinical correlation advised. Consider EDGAR if clinically indicated. There is mild tricuspid valve regurgitation. From echocardiogram August 2019 Moderate pulmonary arterial systolic hypertension RVSP of 40 on echocardiogram August 2019 MICHELE on CPAP Since 2004 with his most recent sleep study February 2018 recommending a CPAP pressure of 9 Retinal detachment February 2018 Subjective fever Surgical History Surgical History (Updated 04/29
[2021-04-29 14:55] LABS: Add Urine Microscopic? YES; Appearance Urine Clear (Clear); Bilirubin Urine Negative (Negative); Blood Urine Negative (Negative); Color Urine Yellow (Yellow); Glucose Urine UA 3+ mg/dL (Negative); Ketones Urine Negative (Negative); Leukocyte Esterase Ur Negative LEU/UL (Negative); Nitrate Urine Negative (Negative); Protein Urine Negative (Negative); RBC Urine 0-2 /hpf (0-2); Specific Grav Ur 1.017 (1.001-1.035); Urobilinogen Urine Negative mg/dL (<2.0); WBC Urine 0-3 /hpf
[2021-04-29] MEDS: FUROSEMIDE INJ 40 MG/4 ML VIAL IV PUSH ×2 (15:45→20:27)
[2021-04-29 15:51] LABS: Alanine Aminotransferase 32 U/L (4-50); Albumin Level 4.2 g/dL (3.5-5.1); Alkaline Phosphatase 71 U/L (38-126); Anion Gap 14 mmol/L (8-16); Aspartate Amino Transferase 29 U/L (17-59); Bilirubin,Total 1.1 mg/dL (0.2-1.3); Blood Urea Nitrogen 34 mg/dL (9-20); Calcium 9.2 mg/dL (8.4-10.2); Carbon Dioxide 21 mmol/L (22-30); Chloride 107 mmol/L (98-107); Estimated CRCL calculation 59 ml/min; Estimated Glomerular Filt Rate 46; Glucose 182 mg/dL (65-110); Lactic Acid Reflex 2.6 mmol/L (0.7-2.1); Potassium 4.2 mmol/L (3.4-5.0); Sodium 142 mmol/L (137-145)
[2021-04-29 15:53] LABS: Glucose Point of Care 143 mg/dl (65-105)
[2021-04-29 16:04] LABS: NT Pro B Type Natriuretic Pept 5960 pg/mL (5-100); Troponin I 0.069 ng/mL (0.000-0.034)
[2021-04-29 17:15] LABS: Reflex Lactic Acid Yes or No Add Lactic
--- NOTE | 2021-04-29 17:40 | ADMGEN ---
This patient, Danny Valero, was admitted to IMU Room 202-. Patient/family oriented to hospital policies and general routines including ID bracelet, bed and alarms, visiting hours, pain management, procedures, bathroom and other care routines, personal items, smoking policy, room service/diet, and visiting hours. Information on how to activate the Rapid Response Team has been discussed. Patient/Family are encouraged to report perceived risks to care and to ask questions if they do not understand what they are told or what they should do.
[2021-04-29 17:58] LABS: Lactic Acid 2.4 mmol/L (0.7-2.1)
--- NOTE | 2021-04-29 20:34 | PM.IMHP ---
H&P: HPI History of Present Illness Date/Time: 04/29/21 20:34Thiela is a 70-year-old male patient who has a history of diabetes, congestive heart failure and hypertension. The patient does not wear oxygen at night. The patient has had increasing shortness breath for 1 want and gradually got worse today. The patient is typically able to walk 100 ft this past week but today he was unable to make it to into his house. He called his primary care doctor who recommended the patient take double diuretics any did this today. He stated that he has a chronic cough and has been on lisinopril. Patient also reports mild edema to both lower extremities and gained 6 lb this past week. Patient recently had a CT scan with IV contrast last week and was told that there were no findings to explain his cough. White count 11.2. pH within normal limits. PO2 47.2. Bicarb 20.4. O2 saturation 84.6. creatinine 1.5 which is his baseline. Lactic was 2.6 and then 2.4. Glucose 182. Troponin 0.069. BNP 5960. The patient stated that he had a valve replacement back in February of this year. He stated that it was tissue replacement. Chest x-ray was read as congestive heart failure, mild right pleural effusion mild infiltrate or atelectasis in the lower lung zones, right greater than left. The patient was given IV Lasix in the emergency room. Patient admitted to observation status on date of service is 04/29/2021. Chief Complaint: Shortness of breath Review of Systems Review of Systems: All systems reviewed & are unremarkable except as noted in HPI and below Constitutional: Constitutional: Reports as per HPI and Reports no additional constitutional complaints Eyes: Eyes: Reports as per HPI and Reports no additional eye complaints ENT: Reports system reviewed and no additional complaints, except as documented and Reports Normal hearing present Cardiovascular: Cardiovascular: Reports no additional cardiovascular complaints Respiratory: Respiratory: Reports no additional respiratory complaints and Reports no additional respiratory complaints Gastrointestinal: Gastrointestinal: Reports as per HPI and Reports no additional gastrointestinal complaints Musculoskeletal: Musculoskeletal: Reports no additional musculoskeletal complaints Integumentary/Breasts: Skin/Breast: Reports system reviewed and no additional complaints, except as docu and Reports as per HPI Neurologic: Reports system reviewed and no additional complaints, except as documented, Reports as per HPI and Reports Normal hearing present Psychiatric: Psychiatric: Reports no additional psychiatric complaints and Reports as per HPI Endocrine: Endocrine: Reports no additional endocrine complaints Hematologic/Lymphatic: Hematologic/Lymphatic: Reports no additional hematologic/lymphatic complaints Allergic/Immunologic: Allergic/Immunologic: Reports no additional allergic/immunologic complaints [facility] Past Medical History Medical History (Updated 04/29/21 @ 20:49 by Meredith Sandra NP) Arthritis Atrial fibrillation Back pain Cardiomyopathy Left ventricular chamber dimension is severely enlarged. Left ventricular systolic function is severely reduced, estimated at 25-30%. The left ventricular diastolic function is grade III diastolic dysfunction. Akinetic basal inferior wall. Left atrial chamber dimension is severely enlarged. Right atrial chamber dimension is severely enlarged. There is mild eccentric aortic valve regurgitation which may underestimate severity. Chronic kidney disease, stage 3 Baseline creatinine around 1.5-1.9 Combined systolic and diastolic congestive heart failure New diagnosis August 2019 with EF 25-30% and grade 3 diastolic dysfunction CVA (cerebral vascular accident) Per patient however the patient had MRI March 2018 which demonstrated no evidence of prior infarct only chronic small-vessel ischemic disease Diabetes Essential hypertension Hyperlipidemia Mitral valve
[2021-04-29 21:46] LABS: Glucose Point of Care 187 mg/dl (65-105)
[2021-04-29] MEDS: METOPROLOL SUCCINATE EXT REL 50 MG TABCR PO (22:12)
[2021-04-29] MEDS: ASPIRIN 81 MG ENTERIC TABLET PO (22:13)
[2021-04-29] MEDS: INSULIN GLARGINE (*BKC) 100 UNITS/ML 19 UNITS SUB-Q (22:14)
[2021-04-29] MEDS: SIMVASTATIN 20 MG TABLET PO (22:14)
[2021-04-29 22:53] LABS: Troponin I 0.086 ng/mL (0.000-0.034)
[2021-04-30] VITALS (20 sets, daily range): BP systolic 92–118; BP diastolic 54–76; PULSE 85–100; RESP 20–26; TEMP 36.4–37.1; O2SAT 92–99
--- NOTE | 2021-04-30 01:05 | PC.NURSE ---
Daylight Savings Time For Daylight Savings Time Ending in the Fall - Clocks are moved back. For Daylight Savings Time Beginning in the Spring - Clocks are moved ahead. For [facility], the time of change occurs at 0200 hrs. Time is taken from the fast food server. This entry on the patient's chart recognizes the change in time reflected during documentation. Example: 2 entries for vital signs may be charted for 0200 hrs.
[2021-04-30] MEDS: WATER FOR IRRIGATION, STERILE 1,000 ML BOTTLE 1000 ML (01:45)
[2021-04-30 06:10] LABS: Basophils Percent Auto 0.4 % (0.2-1.2); Eosinophils Absolute Auto 0.1 K/mm3 (0-0.3); Eosinophils Percent Auto 1.3 % (0-4.4); Hematocrit 39.7 % (42.0-52.0); Hemoglobin 12.6 g/dL (14.0-18.0); Immature Granulocyte Absolute 0.06 K/mm3 (0.00-0.031); Immature Granulocyte Percent A 0.6 % (0-0.5); Lymphocytes Absolute Auto 1.41 K/mm3 (0.9-3.2); Lymphocytes Percent Auto 13.9 % (18.3-44.2); Mean Corpuscular HGB Conc 31.7 g/dl (32-36); Mean Corpuscular Hemoglobin 30.9 pg (26-34); Mean Corpuscular Volume 97.3 fl (80-100); Mean Platelet Volume 11.3 fl (7.4-10.4); Monocytes Absolute Auto 0.8 K/mm3 (0.1-0.6); Monocytes Percent Auto 7.9 % (2.6-8.5); Neutrophils Absolute Auto 7.7 K/mm3 (1.3-6.7); Neutrophils Percent Auto 75.9 % (45.5-73.1); Platelet Count Result 148 k/mm3 (150-375); Red Blood Count 4.08 M/mm3 (4.6-6.20); Red Cell Distribution Width 14.9 % (11.5-14.5); White Blood Count 10.2 K/mm3 (4.5-10.0)
[2021-04-30 06:28] LABS: Anion Gap 12 mmol/L (8-16); Blood Urea Nitrogen 35 mg/dL (9-20); Calcium 8.9 mg/dL (8.4-10.2); Carbon Dioxide 20 mmol/L (22-30); Chloride 107 mmol/L (98-107); Estimated CRCL calculation 57 ml/min; Estimated Glomerular Filt Rate 46; Glucose 99 mg/dL (65-110); Potassium 3.4 mmol/L (3.4-5.0); Sodium 139 mmol/L (137-145)
[2021-04-30 08:55] LABS: Glucose Point of Care 96 mg/dl (65-105)
[2021-04-30] MEDS: EMPAGLIFLOZIN 10 MG TABLET BY MOUTH (09:44)
[2021-04-30] MEDS: APIXABAN 5 MG TABLET PO ×2 (09:44→17:29)
[2021-04-30] MEDS: FUROSEMIDE INJ 40 MG/4 ML VIAL IV PUSH ×2 (09:45→21:02)
[2021-04-30] MEDS: LIDOCAINE 5% PATCH 1 PATCH TRANSDERM (11:41)
[2021-04-30 12:33] LABS: Glucose Point of Care 192 mg/dl (65-105)
--- NOTE | 2021-04-30 16:59 | PM.IMPN ---
Progress Note: A&P Assessment and Plan (1) Congestive heart failure (CHF): Code(s): I50.9 - Heart failure, unspecified Status: Acute Assessment and Plan: Patient has a previously known history of CHF on his most recent echo his EF was 30%. He has AICD. Over the last week he noticed a 6 lb weight gain. He called his primary care physician who told him to double the dose of Lasix. He notice any increase in his urinary output with this strategy. However he became progressively short of breath. Patient was appropriately started on Lasix on arrival. Continue with home metoprolol. Patient will present with mild elevation of troponin 0.08. We will repeat the troponin. He denies any chest pain. This likely represent type 2 UT in the setting of acute CHF exacerbation. Will proceed with an echocardiogram to check with any wall motion abnormalities. His only already on therapeutic anticoagulation with Eliquis. He is on low-dose aspirin 81 mg p.o. daily. Patient is already on statin. He is also receiving beta blockers. Continue cardiac monitoring serial EKG and cardiology consult in a.m.. Follow-up repeat echo.. (2) Acute renal failure superimposed on stage 3 chronic kidney disease: Qualifiers: Acute renal failure type: unspecified Qualified Code(s): N17.9 - Acute kidney failure, unspecified; N18.3 - Chronic kidney disease, stage 3 (moderate) Code(s): N17.9 - Acute kidney failure, unspecified; N18.3 - Chronic kidney disease, stage 3 (moderate) Status: Acute Assessment and Plan: Patient's creatinine is 1.5 which is patient's baseline. Avoid nephrotoxic medication and contrast agents. (3) HTN (hypertension): Qualifiers: Hypertension type: unspecified Qualified Code(s): I10 - Essential (primary) hypertension Code(s): I10 - Essential (primary) hypertension Status: Chronic Assessment and Plan: Continue with metoprolol (4) HLD (hyperlipidemia): Qualifiers: Hyperlipidemia type: unspecified Qualified Code(s): E78.5 - Hyperlipidemia, unspecified Code(s): E78.5 - Hyperlipidemia, unspecified Status: Chronic Assessment and Plan: continue with simvastatin (5) Diabetes: Qualifiers: Diabetes mellitus type: type 2 Diabetes mellitus laborer marine terminal insulin use: with longterm use Diabetes mellitus complication status: with kidney complications Diabetes mellitus complication detail: with chronic kidney disease Chronic kidney disease stage: stage 3 (moderate) Qualified Code(s): E11.22 - Type 2 diabetes mellitus with diabetic chronic kidney disease; N18.3 - Chronic kidney disease, stage 3 (moderate); Z79.4 - extermination inspector (current) use of insulin Code(s): E11.9 - Type 2 diabetes mellitus without complications Status: Chronic Assessment and Plan: Fasting blood glucose was 99. Accu-Cheks have been in the 96-192 range. continue with Lantus and sliding scale insulin. Hemoglobin A1c was ordered and is pending at the time of this dictation. (6) Elevated troponin: Code(s): R79.89 - Other specified abnormal findings of blood chemistry Status: Acute Assessment and Plan: patient has chronically elevated troponins which could be due to his congestive heart fail (7) MICHELE on CPAP: Code(s): G47.33 - Obstructive sleep apnea (adult) (pediatric); Z99.89 - Dependence on other enabling machines and devices Status: Chronic Assessment and Plan: Continue with CPAP home settings (8) Atrial fibrillation: Code(s): I48.91 - Unspecified atrial fibrillation Status: Chronic Assessment and Plan: the patient stated that he went into atrial fibrillation after he had his valve replaced. The patient is on Eliquis and metoprolol. The patient also has an AICD. The patient is paste most of time but has an occasional PVC. Subjective Date/time seen: 04/30/21 16:59 S: Ira
--- NOTE | 2021-04-30 17:12 | ECG_ITS ---
Measurements Intervals [place] Rate: 90 P: UT: 0 QRS: -54 QRSD: 158 T: 122 QT: 426 QTc: 522 Interpretive Statements ELECTRONIC VENTRICULAR PACEMAKER WITH INHIBITION VENTRICULAR PREMATURE COMPLEX LEFT AXIS DEVIATION UNDERLYING ATRIAL FIBRILLATION LEFT BUNDLE BRANCH BLOCK NO FURTHER INTERPRETATION IS POSSIBLE ABNORMAL ECG Electronically Signed On 04-30-2021 20:03:02 [employer] by Roberto Mcmahan D.O.
[2021-04-30 17:54] LABS: Glucose Point of Care 155 mg/dl (65-105)
[2021-04-30 19:20] LABS: Troponin I 0.104 ng/mL (0.000-0.034)
[2021-04-30 20:01] LABS: Glucose Point of Care 233 mg/dl (65-105)
[2021-04-30] MEDS: INSULIN GLARGINE (*BKC) 100 UNITS/ML 38 UNITS SUB-Q (20:57)
[2021-04-30] MEDS: ASPIRIN 81 MG ENTERIC TABLET PO (21:02)
[2021-04-30] MEDS: METOPROLOL SUCCINATE EXT REL 50 MG TABCR PO (21:02)
[2021-04-30] MEDS: SIMVASTATIN 20 MG TABLET PO (21:03)
[2021-05-01] VITALS (17 sets, daily range): BP systolic 95–122; BP diastolic 58–99; PULSE 85–98; RESP 20–24; TEMP 36.4–37.3; O2SAT 93–100
--- NOTE | 2021-05-01 | ECHO_ITS ---
Patient Info Name: Danny Valero Age: 70 years : 1950 Gender: Male Ht: 73 in Wt: 277 lbs BSA: 2.59 m2 HR: 97 bpm BP: 102 / 60 mmHg Heart Rhythm: Atrial Fibrillation, Paced Technical Quality: Fair Exam Date: 05/01/2021 10:48 AM Exam Location: [facility] Pulmonary Patient Status: Outpatient Admit Date: 04/29/2021 Staff Ordering Physician: Meredith Sandra NP Lap Cutter Truer Operator: Nedra Corrales RDCS Attending Provider: Jeannette Monet MD Referring Physician: Jocy POLANCO; Exam Type: CA echo dop color flow w con Study Info Indications - EDEMA TO LOWER EXTREMITIES Complete two-dimensional, color flow and Doppler transthoracic echocardiogram is performed with contrast to opacify the left ventricle and to improve the deliniation of the left ventricle endocardial borders. Contrast/Agitated Saline Contrast/Ag. Saline: Definity Amount: 2.00 ml Existing IV Access: Yes IV Access Condition: patent with no signs of infiltration Summary 1. Definity contrast injected to improve visualization. 2. Biatrial dilation. 3. Normally functioning aortic valve bioprosthesis. Left Ventricle Definity contrast injected to improve visualization. Left ventricular chamber dimension is severely enlarged. Left ventricular systolic function is severely reduced, estimated at 20-25%. There is mild concentric increased left ventricular wall thickness. Right Ventricle Right ventricular chamber dimension is normal. Linear artifact in right ventricle suggestive of catheter(s), pacemaker lead(s), or ICD lead(s). Left Atria Left atrial chamber dimension is moderately enlarged. Right Atria Right atrial chamber dimension is moderately enlarged. Linear artifact in the right atrium suggestive of catheter(s), pacemaker lead(s), or ICD lead(s). Aortic Valve There is no regurgitation of the bioprosthetic aortic valve. Pulmonic Valve The pulmonic valve is not well visualized. Mitral Valve The mitral valve has normal leaflets. There is trace mitral valve regurgitation. Tricuspid Valve The tricuspid valve leaflets are not well visualized. Pericardium/Pleural The pericardium appears normal. Aorta The aortic root size at the sinus of Valsalva is normal. Left Ventricular Outflow Tract Name Value Normal LVOT 2D LVOT Diameter 2.02 cm LVOT Doppler LVOT Peak Gradient 5 mmHg LVOT Mean Gradient 3 mmHg LVOT VTI 18.40 cm LVOT VTI/AV VTI Ratio 1.05 LVOT Stroke Volume 58.74 ml LVOT CO 4.79 l/min LVOT CI 1.85 L/min/m2 Pulmonic Valve Name Value Normal RVOT Doppler RVOT Peak Gradient 1 mmHg PV D
[2021-05-01 01:31] LABS: Glucose Point of Care 141 mg/dl (65-105)
[2021-05-01 05:16] LABS: Anion Gap 11 mmol/L (8-16); Blood Urea Nitrogen 37 mg/dL (9-20); Calcium 8.8 mg/dL (8.4-10.2); Carbon Dioxide 25 mmol/L (22-30); Chloride 103 mmol/L (98-107); Estimated CRCL calculation 50 ml/min; Estimated Glomerular Filt Rate 40; Glucose 127 mg/dL (65-110); Magnesium 2.2 mg/dL (1.6-2.3); Potassium 3.5 mmol/L (3.4-5.0); Sodium 139 mmol/L (137-145)
[2021-05-01 05:19] LABS: Phosphorus 5.1 mg/dL (2.5-4.5)
[2021-05-01] MEDS: FUROSEMIDE INJ 40 MG/4 ML VIAL IV PUSH (06:45)
[2021-05-01 07:21] LABS: Glucose Point of Care 140 mg/dl (65-105)
[2021-05-01] MEDS: APIXABAN 5 MG TABLET PO ×2 (08:25→17:17)
[2021-05-01] MEDS: LIDOCAINE 5% PATCH 1 PATCH TRANSDERM (08:25)
[2021-05-01] MEDS: EMPAGLIFLOZIN 10 MG TABLET BY MOUTH (08:25)
[2021-05-01 08:45] LABS: Lactic Acid Reflex 1.6 mmol/L (0.7-2.1)
[2021-05-01 08:48] LABS: CRP 1.1 mg/dL (<1.0)
[2021-05-01] MEDS: PERFLUTREN LIPID MICROSPHERES 1.5 ML VIAL DILUTED TO 10 ML TOTAL VOLUME IV PUSH (11:32)
[2021-05-01 12:17] LABS: Glucose Point of Care 180 mg/dl (65-105)
--- NOTE | 2021-05-01 12:27 | PM.CNCAR ---
Assessment and Plan Additional Plan 70-year-old man with: Established diagnosis of valvular heart disease and nonischemic cardiomyopathy as well as chronic atrial fibrillation. He underwent difficult aortic valve replacement which required both Impella and inotropics support at [place] about a year and half ago. He has done remarkably well since then. He follows with his enterprise application developer down there but surprisingly he says not with any other professor of food biochemistry. He presents to the hospital with some congestive heart failure decompensation at which has been treated with furosemide intravenously with good results. His previous echocardiograms demonstrate relatively severe LV systolic dysfunction. I am going to recommend adding Entresto to his medical regimen for the time being. I would keep the IV Lasix going for at least another day. Echocardiogram has already been done this morning and I will review that after and finished making rounds today. When he is discharged we will ensure that he has appropriate follow-up scheduled with Dr. Barahona about our office who was following his case prior to his operation as detailed above. Jason Chicas MD [facility] History of Present Illness History of Present Illness Consult date/time: 05/01/21 12:27 Consult reason: congestive heart failure Reason For Visit: CHF Exacerbation Narrative: This is a 70-year-old man I am seeing at the request of the hospitalist today because of congestive heart failure with which he was admitted on Saturday of this past weekend. The patient previously had been followed in our practice by Dr. Barahona but more recently has been followed by the physicians at [place]. He has a history of a nonischemic cardiomyopathy and valvular heart disease for which he was evaluated here at [place] in 2019. He presented at that time with atrial fibrillation which is felt to be chronic he had relatively poor LV systolic function and underwent left heart catheterization demonstrating that non diseased coronary arteries with right coronary dominant circulation. He was followed after the evaluation and found to have significant/moderate to severe aortic valve regurgitation and was referred to the valve Clinic down at [place]. In February of 2020 he underwent surgery receiving a 27 mm magna ease aortic valve replacement. This was done with Impella support and following the procedure the patient was weaned from inotropes and did well. He did develop ventricular tachycardia in the hospital that required electrical termination and therefore during the same hospitalization received a defibrillator. He was discharged ultimately after about a month in the hospital and had a states he has been doing relatively well since then. He states that he has been following with the electrophysiologists about regarding the function of his device but not by any of the other cardiologists and he has not seen anyone in our practice for follow-up since this the operation. He states that he is able to conduct most activities of his daily life without any problems he has noticed some weight gain and some shortness of breath over the last couple of weeks this became more significant with conversational dyspnea last week and so he came to the hospital he was evaluated and admitted. He has been placed on intravenous furosemide and he states he feels much better in the last couple of days. An echocardiogram was done this morning which as of now has not been read. His medical regimen consists of aspirin, apixaban, furosemide and metoprolol as well as a modest dose of simvastatin. Review of Systems Constitutional: Constitutional: Reports fatigue Eyes: Eyes: Reports no additional eye complaints ENT: Reports system reviewed and no additional complaints, except as documented Cardiovascular: Cardiovascular: Reports as per HPI Respiratory: Respiratory: Reports dyspnea Gastrointestinal: Gastrointestinal: Reports no additional ga
--- NOTE | 2021-05-01 14:58 | PCNSR ---
On 05/01/21, the student, Maria L Trivedi, provided care and completed [facility] documentation on this patient. I have reviewed the student's documentation and agree with the findings.
[2021-05-01 16:34] LABS: Glucose Point of Care 187 mg/dl (65-105)
--- NOTE | 2021-05-01 17:55 | PM.IMPN ---
Progress Note: A&P Assessment and Plan (1) Congestive heart failure (CHF): Code(s): I50.9 - Heart failure, unspecified Status: Acute Assessment and Plan: Patient with a known history of CHF, EF:30%, s/p AICD, valvular heart disease, nonischemic cardiomyopathy, chronic atrial fibrillation, s/p aortic valve replacement which required both Impella and inotropics support at [place] about a year and half ago. Patient has been doing relatively well as an outpatient.His medical regimen consists of aspirin, apixaban, furosemide and metoprolol as well as a modest dose of simvastatin.He has responded well to intravenous diuresis. Patient was appropriately started on Lasix on arrival with a vigorous diuretic response, producing over 3.5 litres of urine overnight. Continue IV lasix and metoprolol. Patient will present with mild elevation of troponin 0.08->0.10->0.11. He denies any chest pain. This likely represent type 2 [place] in the setting of acute CHF exacerbation. Will proceed with an echocardiogram to check with any wall motion abnormalities. His only already on therapeutic anticoagulation with Eliquis. He is on low-dose aspirin 81 mg p.o. daily. Patient is already on statin. He is also receiving beta blockers. Repeat echo with severe systolic dynfunction. Entresto started per cardiology recommendations. (2) Acute renal failure superimposed on stage 3 chronic kidney disease: Qualifiers: Acute renal failure type: unspecified Qualified Code(s): N17.9 - Acute kidney failure, unspecified; N18.3 - Chronic kidney disease, stage 3 (moderate) Code(s): N17.9 - Acute kidney failure, unspecified; N18.3 - Chronic kidney disease, stage 3 (moderate) Status: Acute Assessment and Plan: Patient's creatinine is 1.5 which is patient's baseline. Avoid nephrotoxic medication and contrast agents. (3) HTN (hypertension): Qualifiers: Hypertension type: unspecified Qualified Code(s): I10 - Essential (primary) hypertension Code(s): I10 - Essential (primary) hypertension Status: Chronic Assessment and Plan: Continue with metoprolol. BP in the 95/58-122/99 range. (4) HLD (hyperlipidemia): Qualifiers: Hyperlipidemia type: unspecified Qualified Code(s): E78.5 - Hyperlipidemia, unspecified Code(s): E78.5 - Hyperlipidemia, unspecified Status: Chronic Assessment and Plan: continue with simvastatin (5) Diabetes: Qualifiers: Diabetes mellitus type: type 2 Diabetes mellitus long haul truck driver insulin use: with long haul truck driver use Diabetes mellitus complication status: with kidney complications Diabetes mellitus complication detail: with chronic kidney disease Chronic kidney disease stage: stage 3 (moderate) Qualified Code(s): E11.22 - Type 2 diabetes mellitus with diabetic chronic kidney disease; N18.3 - Chronic kidney disease, stage 3 (moderate); Z79.4 - custodial (current) use of insulin Code(s): E11.9 - Type 2 diabetes mellitus without complications Status: Chronic Assessment and Plan: Fasting blood glucose was 127. Accu-Cheks have been in the 140-187 range. continue with Lantus and sliding scale insulin. Hemoglobin A1c was ordered and is pending at the time of this dictation. (6) Elevated troponin: Code(s): R79.89 - Other specified abnormal findings of blood chemistry Status: Acute Assessment and Plan: patient has chronically elevated troponins which could be due to his congestive heart fail (7) MICHELE on CPAP: Code(s): G47.33 - Obstructive sleep apnea (adult) (pediatric); Z99.89 - Dependence on other enabling machines and devices Status: Chronic Assessment and Plan: Continue with CPAP home settings (8) Atrial fibrillation: Code(s): I48.91 - Unspecified atrial fibrillation Status: Chronic Assessment and Plan: the patient stated that he went into atrial fibrillation a
[2021-05-01 19:56] LABS: Glucose Point of Care 162 mg/dl (65-105)
[2021-05-01] MEDS: SACUBITRIL/VALSARTAN 24-26 MG TABLET 1 TAB PO (20:32)
[2021-05-01] MEDS: SIMVASTATIN 20 MG TABLET PO (20:32)
[2021-05-01] MEDS: ASPIRIN 81 MG ENTERIC TABLET PO (20:32)
[2021-05-01] MEDS: HYDROcodone/acetaminophen (*CRX) 10-325 MG TABLET 1 TAB PO (20:32)
[2021-05-01] MEDS: INSULIN GLARGINE (*BKC) 100 UNITS/ML 19 UNITS SUB-Q (20:54)
[2021-05-01 22:06] LABS: Add Urine Microscopic? YES; Appearance Urine Clear (Clear); Bilirubin Urine Negative (Negative); Blood Urine Negative (Negative); Color Urine Yellow (Yellow); Glucose Urine UA 3+ mg/dL (Negative); Ketones Urine Negative (Negative); Leukocyte Esterase Ur Negative LEU/UL (NEGATIVE); Nitrate Urine Negative (Negative); Protein Urine Negative (Negative); RBC Urine 0-2 /hpf (0-2); Specific Grav Ur 1.024 (1.001-1.035); WBC Urine 0-3 /hpf (0-3)
--- NOTE | 2021-05-01 23:17 | PC.NURSE ---
Cardiopulmonary Rehab Services flyer was given to patient in cardiac admission folder.
[2021-05-02] VITALS (16 sets, daily range): BP systolic 94–109; BP diastolic 52–93; PULSE 79–107; RESP 16–20; TEMP 36.2–36.6; O2SAT 95–100
[2021-05-02 05:29] LABS: Anion Gap 9 mmol/L (8-16); Blood Urea Nitrogen 40 mg/dL (9-20); Calcium 8.9 mg/dL (8.4-10.2); Carbon Dioxide 25 mmol/L (22-30); Chloride 104 mmol/L (98-107); Estimated CRCL calculation 50 ml/min; Estimated Glomerular Filt Rate 43; Glucose 127 mg/dL (65-110); Magnesium 2.7 mg/dL (1.6-2.3); Potassium 3.5 mmol/L (3.4-5.0); Sodium 138 mmol/L (137-145)
[2021-05-02] MEDS: LIDOCAINE 5% PATCH 1 PATCH TRANSDERM (08:18)
[2021-05-02] MEDS: FUROSEMIDE INJ 40 MG/4 ML VIAL IV PUSH (08:18)
[2021-05-02] MEDS: SACUBITRIL/VALSARTAN 24-26 MG TABLET 1 TAB PO ×2 (08:18→21:34)
[2021-05-02] MEDS: EMPAGLIFLOZIN 10 MG TABLET BY MOUTH (08:18)
[2021-05-02] MEDS: APIXABAN 5 MG TABLET PO ×2 (08:18→16:44)
[2021-05-02 08:32] LABS: Glucose Point of Care 116 mg/dl (65-105)
--- NOTE | 2021-05-02 08:57 | PM.IMPN ---
Progress Note: A&P Assessment and Plan (1) Congestive heart failure (CHF): Code(s): I50.9 - Heart failure, unspecified Status: Acute Assessment and Plan: Patient with a known history of CHF, EF:30%, s/p AICD, valvular heart disease, nonischemic cardiomyopathy, chronic atrial fibrillation, s/p aortic valve replacement which required both Impella and inotropics support at [place] about a year and half ago. Patient has been doing relatively well as an outpatient.His medical regimen consists of aspirin, apixaban, furosemide and metoprolol as well as a modest dose of simvastatin.He has responded well to intravenous diuresis. Patient was appropriately started on Lasix on arrival with a vigorous diuretic response, producing over 2.3 litres of urine overnight. On today's exam the patient appears to be relatively euvolemic. Switched to p.o. Lasix and continue metoprolol. Patient will present with mild elevation of troponin 0.08->0.10->0.11. He denies any chest pain. This likely represent type 2 [place] in the setting of acute CHF exacerbation. Will proceed with an echocardiogram to check with any wall motion abnormalities. His only already on therapeutic anticoagulation with Eliquis. He is on low-dose aspirin 81 mg p.o. daily. Patient is already on statin. He is also receiving beta blockers. Repeat echo with severe systolic dysfunction. Patient was started on Entresto; he is relatively hypotensive with BP of 109/93 today. We will continue to monitor his status. (2) Acute renal failure superimposed on stage 3 chronic kidney disease: Qualifiers: Acute renal failure type: unspecified Qualified Code(s): N17.9 - Acute kidney failure, unspecified; N18.3 - Chronic kidney disease, stage 3 (moderate) Code(s): N17.9 - Acute kidney failure, unspecified; N18.3 - Chronic kidney disease, stage 3 (moderate) Status: Acute Assessment and Plan: Patient's creatinine is 1.5-1.6 which is patient's baseline. Avoid nephrotoxic medication and contrast agents. (3) HTN (hypertension): Qualifiers: Hypertension type: unspecified Qualified Code(s): I10 - Essential (primary) hypertension Code(s): I10 - Essential (primary) hypertension Status: Chronic Assessment and Plan: Continue with metoprolol. BP in the 94/52-109/93 range. (4) HLD (hyperlipidemia): Qualifiers: Hyperlipidemia type: unspecified Qualified Code(s): E78.5 - Hyperlipidemia, unspecified Code(s): E78.5 - Hyperlipidemia, unspecified Status: Chronic Assessment and Plan: continue with simvastatin (5) Diabetes: Qualifiers: Diabetes mellitus type: type 2 Diabetes mellitus verifying machine operator insulin use: with skilled nursing use Diabetes mellitus complication status: with kidney complications Diabetes mellitus complication detail: with chronic kidney disease Chronic kidney disease stage: stage 3 (moderate) Qualified Code(s): E11.22 - Type 2 diabetes mellitus with diabetic chronic kidney disease; N18.3 - Chronic kidney disease, stage 3 (moderate); Z79.4 - quilting machine operator (current) use of insulin Code(s): E11.9 - Type 2 diabetes mellitus without complications Status: Chronic Assessment and Plan: Fasting blood glucose was 127. Accu-Cheks have been in the 116-187 range. continue with Lantus and sliding scale insulin. Hemoglobin A1c was ordered and is pending at the time of this dictation. (6) Elevated troponin: Code(s): R79.89 - Other specified abnormal findings of blood chemistry Status: Acute Assessment and Plan: patient has chronically elevated troponins which could be due to his congestive heart fail (7) MICHELE on CPAP: Code(s): G47.33 - Obstructive sleep apnea (adult) (pediatric); Z99.89 - Dependence on other enabling machines and devices Status: Chronic Assessment and Plan: Continue with CPAP home settings (8) Atrial fibrillation:
--- NOTE | 2021-05-02 10:54 | PM.PNCARD ---
Progress Note: A&P Assessment and Plan (1) Congestive heart failure (CHF): Code(s): I50.9 - Heart failure, unspecified Status: Acute Assessment and Plan: Established diagnosis of valvular heart disease and nonischemic cardiomyopathy. S/p aortic valve replacement at [facility] that was complicated by cardiogenic shock requiring Impella and inotropic support. Echocardiogram from 05/01/21 showed severe LV dysfunction with an EF of 20-25%. Presented to the hospital with decompensated heart failure. He has been placed on IV furosemide which has improved his symptoms. Entresto was added to his regimen yesterday. Blood pressure and renal function stable thus far. Continue to monitor BP and renal function with daily BMP. He appears euvolemic on exam today. I am going to shift him from IV furosemide to oral furosemide-40 mg p.o. b.i.d.. (2) Atrial fibrillation: Code(s): I48.91 - Unspecified atrial fibrillation Status: Chronic Assessment and Plan: Chronic atrial fibrillation followed by EP at [facility]. On metoprolol and anticoagulated with eliquis. Has pacemaker/defibrillator and on telemetry he appears to be ventricularly paced. (3) NSVT (nonsustained ventricular tachycardia): Code(s): I47.2 - Ventricular tachycardia Status: Acute Assessment and Plan: 6 beat run ventricular tachycardia noted on telemetry this afternoon. Self limiting. He does have a permanent defibrillator in place. Continue to monitor electrolytes with BMP. Continue beta-john. Subjective Date/time seen: 05/02/21 10:54 Cardiology follow up for CHF Date of service 05/02/2021: Patient does not have any complaints today. He states that his breathing is good. Denies any chest pain, shortness of breath, palpitations, swelling. He says that when he came into the hospital he had quite a bit of abdominal distention due to volume overload but that has resolved. Review of Systems Constitutional: Constitutional: Reports fatigue Eyes: Eyes: Reports no additional eye complaints ENT: Reports system reviewed and no additional complaints, except as documented Cardiovascular: Cardiovascular: Reports as per HPI and Reports dyspnea Respiratory: Respiratory: Reports dyspnea Gastrointestinal: Gastrointestinal: Reports no additional gastrointestinal complaints Musculoskeletal: Musculoskeletal: Reports arthralgias Integumentary/Breasts: Skin/Breast: Reports system reviewed and no additional complaints, except as docu Neurologic: Reports system reviewed and no additional complaints, except as documented Endocrine: Endocrine: Reports no additional endocrine complaints and Reports fatigue Hematologic/Lymphatic: Hematologic/Lymphatic: Reports no additional hematologic/lymphatic complaints Allergic/Immunologic: Allergic/Immunologic: Reports no additional allergic/immunologic complaints Exam Const: General: comfortable and no acute distress HENMT: Mouth: Yes moist mucous membranes Eyes: Sclera: sclerae normal Pupils: Equal, round and reactive pupils present Neck: Neck: supple and no JVD Resp: Effort & Inspection: normal respiratory effort Cardio: Rhythm: abnormal rhythm irregularly irregular Peripheral pulses: Peripheral pulses 2+ throughout GI: Auscultation: normal bowel sounds Skin: General skin exam: normal color Wounds: no wounds Neuro: Cranial nerves: Yes Equal, round and reactive pupils present Cognition (Neuro): normal cognition Extrem: Right lower extremity: no edema Left lower extremity: no edema Psych: Appearance: grossly normal Mental Status: mental status grossly normal Objective Data Vital Signs Vital Signs: Vital Signs - 24 hr 05/01/21 12:00 05/01/21 12:19 05/01/21 14:00 Temperature 37.3 C Pulse Rate 93 97 85 Respiratory Rate 24 H Blood Pressure 122/99 H Pulse Oximetry 97 05/01/21 16:00 05/01/21 16:49 05/01/21 18:00 Temperature 36.9 C Pulse Rate 92 92 89
[2021-05-02 11:28] LABS: Hemoglobin A1C 7.1 % (<5.7)
[2021-05-02 12:58] LABS: Glucose Point of Care 187 mg/dl (65-105)
[2021-05-02 16:40] LABS: Glucose Point of Care 195 mg/dl (65-105)
[2021-05-02] MEDS: FUROSEMIDE 40 MG TABLET PO (16:44)
[2021-05-02 20:15] LABS: Glucose Point of Care 193 mg/dl (65-105)
[2021-05-02] MEDS: METOPROLOL SUCCINATE EXT REL 50 MG TABCR PO (21:33)
[2021-05-02] MEDS: ASPIRIN 81 MG ENTERIC TABLET PO (21:34)
[2021-05-02] MEDS: SIMVASTATIN 20 MG TABLET PO (21:34)
[2021-05-02] MEDS: INSULIN GLARGINE (*BKC) 100 UNITS/ML 18 UNITS SUB-Q (21:51)
[2021-05-03] VITALS (10 sets, daily range): BP systolic 89–115; BP diastolic 56–94; PULSE 85–93; RESP 16–22; TEMP 36.2–36.8; O2SAT 98–100
[2021-05-03 07:47] LABS: Basophils Absolute Auto 0.1 K/mm3 (0.0-0.1); Basophils Percent Auto 0.9 % (0.2-1.2); Eosinophils Absolute Auto 0.3 K/mm3 (0-0.3); Eosinophils Percent Auto 2.4 % (0-4.4); Hematocrit 46.1 % (42.0-52.0); Hemoglobin 14.9 g/dL (14.0-18.0); Immature Granulocyte Absolute 0.07 K/mm3 (0.00-0.031); Immature Granulocyte Percent A 0.7 % (0-0.5); Lymphocytes Percent Auto 13.3 % (18.3-44.2); Mean Corpuscular HGB Conc 32.3 g/dl (32-36); Mean Corpuscular Hemoglobin 30.2 pg (26-34); Mean Corpuscular Volume 93.3 fl (80-100); Mean Platelet Volume 10.4 fl (7.4-10.4); Monocytes Absolute Auto 0.9 K/mm3 (0.1-0.6); Monocytes Percent Auto 8.2 % (2.6-8.5); Neutrophils Absolute Auto 7.9 K/mm3 (1.3-6.7); Neutrophils Percent Auto 74.5 % (45.5-73.1); Platelet Count Result 182 k/mm3 (150-375); Red Blood Count 4.94 M/mm3 (4.6-6.20); White Blood Count 10.6 K/mm3 (4.5-10.0)
[2021-05-03] MEDS: POTASSIUM CHLORIDE 20 MEQ PACKET (FOR LIQUID) 40 MEQ PO (07:59)
[2021-05-03] MEDS: SACUBITRIL/VALSARTAN 24-26 MG TABLET 1 TAB PO (07:59)
[2021-05-03] MEDS: LIDOCAINE 5% PATCH 1 PATCH TRANSDERM (07:59)
[2021-05-03] MEDS: FUROSEMIDE 40 MG TABLET PO ×2 (08:00→17:10)
[2021-05-03] MEDS: EMPAGLIFLOZIN 10 MG TABLET BY MOUTH (08:00)
[2021-05-03] MEDS: APIXABAN 5 MG TABLET PO ×2 (08:00→17:10)
[2021-05-03 08:15] LABS: Glucose Point of Care 139 mg/dl (65-105)
--- NOTE | 2021-05-03 09:53 | PM.IMPN ---
Progress Note: A&P Assessment and Plan (1) Congestive heart failure (CHF): Code(s): I50.9 - Heart failure, unspecified Status: Acute Assessment and Plan: Patient with a known history of CHF, EF:30%, s/p AICD, valvular heart disease, nonischemic cardiomyopathy, chronic atrial fibrillation, s/p aortic valve replacement which required both Impella and inotropics support at [place] about a year and half ago. Patient has been doing relatively well as an outpatient.His medical regimen consists of aspirin, apixaban, furosemide and metoprolol as well as a modest dose of simvastatin.He has responded well to intravenous diuresis. Patient was appropriately started on Lasix on arrival with a vigorous diuretic response, producing close to 3 litres of urine overnight. On today's exam the patient appears to be euvolemic. Continue metoprolol and p.o. Lasix. Blood pressure on the soft side, reflecting the introduction of Entresto. However the patient denies any symptoms. He is not feeling dizzy. Patient was educated about the need to document his weight every day along with his blood pressure and comm We will continue to monitor his status. Has of this morning the blood pressure was in the 104/56-115/94 range. (2) Acute renal failure superimposed on stage 3 chronic kidney disease: Qualifiers: Acute renal failure type: unspecified Qualified Code(s): N17.9 - Acute kidney failure, unspecified; N18.3 - Chronic kidney disease, stage 3 (moderate) Code(s): N17.9 - Acute kidney failure, unspecified; N18.3 - Chronic kidney disease, stage 3 (moderate) Status: Acute Assessment and Plan: Patient's creatinine is 1.5-1.6 which is patient's baseline. Avoid nephrotoxic medication and contrast agents. (3) HTN (hypertension): Qualifiers: Hypertension type: unspecified Qualified Code(s): I10 - Essential (primary) hypertension Code(s): I10 - Essential (primary) hypertension Status: Chronic Assessment and Plan: Continue with metoprolol for cardio protection. (4) HLD (hyperlipidemia): Qualifiers: Hyperlipidemia type: unspecified Qualified Code(s): E78.5 - Hyperlipidemia, unspecified Code(s): E78.5 - Hyperlipidemia, unspecified Status: Chronic Assessment and Plan: continue with simvastatin (5) Diabetes: Qualifiers: Diabetes mellitus type: type 2 Diabetes mellitus detention insulin use: with keno terminal operator use Diabetes mellitus complication status: with kidney complications Diabetes mellitus complication detail: with chronic kidney disease Chronic kidney disease stage: stage 3 (moderate) Qualified Code(s): E11.22 - Type 2 diabetes mellitus with diabetic chronic kidney disease; N18.3 - Chronic kidney disease, stage 3 (moderate); Z79.4 - correction (current) use of insulin Code(s): E11.9 - Type 2 diabetes mellitus without complications Status: Chronic Assessment and Plan: Fasting blood glucose was 127 yesterday. Accu-Cheks is 139 today; continue with Lantus and sliding scale insulin. Hemoglobin A1c is 7.1 which is at goal. (6) Elevated troponin: Code(s): R79.89 - Other specified abnormal findings of blood chemistry Status: Acute Assessment and Plan: patient has chronically elevated troponins which could be due to his congestive heart failure. He was admitted with us failure exacerbation and shortness of breath likely causing a type 2 myocardial infarction. Patient is improving clinically with vigorous diuresis. He was started on Entresto. He will be followed by Cardiology as an outpatient. (7) MICHELE on CPAP: Code(s): G47.33 - Obstructive sleep apnea (adult) (pediatric); Z99.89 - Dependence on other enabling machines and devices Status: Chronic Assessment and Plan: Continue with CPAP home settings (8) Atrial fibrillation: Code(s): I48.91 - Unspecified atrial fibrillation
[2021-05-03 12:26] LABS: Glucose Point of Care 230 mg/dl (65-105)
[2021-05-03] MEDS: INSULIN ASPART (*BKC) 100 UNITS/ML SUB-Q (12:27)
--- NOTE | 2021-05-03 16:45 | PM.PNCARD ---
Progress Note: A&P Assessment and Plan (1) Congestive heart failure (CHF): Code(s): I50.9 - Heart failure, unspecified Status: Acute Assessment and Plan: Established diagnosis of valvular heart disease and nonischemic cardiomyopathy. S/p aortic valve replacement at [facility] that was complicated by cardiogenic shock requiring Impella and inotropic support. Echocardiogram from 05/01/21 showed severe LV dysfunction with an EF of 20-25%. Presented to the hospital with decompensated heart failure. He has been placed on IV furosemide which has improved his symptoms. Entresto was added to his regimen yesterday. Blood pressure and renal function stable thus far. He appears euvolemic on exam today. Has been on changed to oral furosemide. Blood pressure is running a bit low, in the 80s to 90s at times, and also asymptomatic I will reduce the Entresto to half a tablet b.i.d.. Okay for discharge today. Will arrange for outpatient follow-up. (2) Atrial fibrillation: Code(s): I48.91 - Unspecified atrial fibrillation Status: Chronic Assessment and Plan: Chronic atrial fibrillation followed by EP at [facility]. On metoprolol and anticoagulated with eliquis. Has pacemaker/defibrillator and on telemetry he appears to be ventricularly paced. (3) NSVT (nonsustained ventricular tachycardia): Code(s): I47.2 - Ventricular tachycardia Status: Acute Assessment and Plan: Has demonstrated PVCs and up to a 6 beat run ventricular tachycardia noted on telemetry this afternoon. Self limiting. He does have a permanent defibrillator in place. Continue to monitor electrolytes with BMP. Continue beta-john. Subjective Date/time seen: 05/03/21 16:45 Interval history: Cardiology follow up for CHF, cardiomyopathy, aortic valve replacement. EF 20-25%. Date of service 05/02/2021: Patient does not have any complaints today. He states that his breathing is good. Denies any chest pain, shortness of breath, palpitations, swelling. He says that when he came into the hospital he had quite a bit of abdominal distention due to volume overload but that has resolved. Date of service 05/03/2021: Up and about in his room, slight dyspnea but not bad, much better. No dizziness or lightheadedness. No edema. Weight is down compared to admission and patient appears to have diuresed well. Blood pressure running low today, in the 90s and once down into the 80s. Review of Systems Constitutional: Constitutional: Denies fatigue and Denies weakness Eyes: Eyes: Reports no additional eye complaints ENT: Denies epistaxis Cardiovascular: Cardiovascular: Denies chest pain, Denies pedal edema, Denies leg edema and Denies lightheadedness Respiratory: Respiratory: Reports dyspnea on exertion Gastrointestinal: Gastrointestinal: Denies abdominal pain Genitourinary: Genitourinary: Denies dysuria Musculoskeletal: Musculoskeletal: Reports no additional musculoskeletal complaints Integumentary/Breasts: Skin/Breast: Denies rash Neurologic: Reports system reviewed and no additional complaints, except as documented Psychiatric: Psychiatric: Reports no additional psychiatric complaints Exam Const: General: comfortable and no acute distress Other: Lying supine comfortably, off oxygen HENMT: General nose exam: no epistaxis Mouth: Yes moist mucous membranes Eyes: EOM: EOMs intact bilaterally Neck: Neck: supple Resp: Effort & Inspection: normal respiratory effort Auscultation: clear to auscultation bilaterally Cardio: Rate: regular rate Rhythm: regular rhythm GI: GI Palp: Yes Soft to palpation and No Tenderness to palpation present (GI) Skin: General skin exam: normal color and no rashes or lesions noted Neuro: Cognition (Neuro): normal cognition Speech: normal speech Extrem: General: no edema and no pedal edema Psych: Mental Status: mental status grossly normal Objective Data Vital Signs Vit
[2021-05-03 17:04] LABS: Glucose Point of Care 187 mg/dl (65-105)
--- NOTE | 2021-05-03 17:09 | PM.DS ---
DS: Admitting Diagnosis Discharge Date 05/03/2021 Admitting Diagnosis Acute heart failure, diastolic and systolic exacerbation. DS: Discharge Diagnosis Discharge Diagnosis (1) Congestive heart failure (CHF): Code(s): I50.9 - Heart failure, unspecified Status: Acute Assessment and Plan: Patient with a known history of CHF, EF:30%, s/p AICD, valvular heart disease, nonischemic cardiomyopathy, chronic atrial fibrillation, s/p aortic valve replacement which required both Impella and inotropics support at [facility] about a year and half ago. Patient has been doing relatively well as an outpatient.His medical regimen consists of aspirin, apixaban, furosemide and metoprolol as well as a modest dose of simvastatin.He has responded well to intravenous diuresis. Patient was appropriately started on Lasix on arrival with a vigorous diuretic response, producing close to 3 litres of urine overnight. On today's exam the patient appears to be euvolemic. Continue metoprolol and p.o. Lasix. Blood pressure on the soft side, reflecting the introduction of Entresto. However the patient denies any symptoms. He is not feeling dizzy. Patient was educated about the need to document his weight every day along with his blood pressure and comm We will continue to monitor his status. Has of this morning the blood pressure was in the 104/56-115/94 range. (2) Acute renal failure superimposed on stage 3 chronic kidney disease: Qualifiers: Acute renal failure type: unspecified Qualified Code(s): N17.9 - Acute kidney failure, unspecified; N18.3 - Chronic kidney disease, stage 3 (moderate) Code(s): N17.9 - Acute kidney failure, unspecified; N18.3 - Chronic kidney disease, stage 3 (moderate) Status: Acute Assessment and Plan: Patient's creatinine is 1.5-1.6 which is patient's baseline. Avoid nephrotoxic medication and contrast agents. (3) HTN (hypertension): Qualifiers: Hypertension type: unspecified Qualified Code(s): I10 - Essential (primary) hypertension Code(s): I10 - Essential (primary) hypertension Status: Chronic Assessment and Plan: Continue with metoprolol for cardio protection. (4) HLD (hyperlipidemia): Qualifiers: Hyperlipidemia type: unspecified Qualified Code(s): E78.5 - Hyperlipidemia, unspecified Code(s): E78.5 - Hyperlipidemia, unspecified Status: Chronic Assessment and Plan: continue with simvastatin (5) Diabetes: Qualifiers: Diabetes mellitus type: type 2 Diabetes mellitus keno terminal operator insulin use: with keno terminal operator use Diabetes mellitus complication status: with kidney complications Diabetes mellitus complication detail: with chronic kidney disease Chronic kidney disease stage: stage 3 (moderate) Qualified Code(s): E11.22 - Type 2 diabetes mellitus with diabetic chronic kidney disease; N18.3 - Chronic kidney disease, stage 3 (moderate); Z79.4 - prison (current) use of insulin Code(s): E11.9 - Type 2 diabetes mellitus without complications Status: Chronic Assessment and Plan: Fasting blood glucose was 127 yesterday. Accu-Cheks is 139 today; continue with Lantus and sliding scale insulin. Hemoglobin A1c is 7.1 which is at goal. (6) Elevated troponin: Code(s): R79.89 - Other specified abnormal findings of blood chemistry Status: Acute Assessment and Plan: patient has chronically elevated troponins which could be due to his congestive heart failure. He was admitted with us failure exacerbation and shortness of breath likely causing a type 2 myocardial infarction. Patient is improving clinically with vigorous diuresis. He was started on Entresto. He will be followed by Cardiology as an outpatient. (7) MICHELE on CPAP: Code(s): G47.33 - Obstructive sleep apnea (adult) (pediatric); Z99.89 - Dependence on other enabling machines and devices Status: Chronic Asses
== END 2021-05-03 18:04 | disposition home or self-care (01) | DRG 281 ==
LOC: ANHED 14:24 → ANHIMU 17:07
PROVIDERS: Internal Medicine; Nurse Practitioner; Admitting Provider Hospitalist; Emergency Provider General Practice; PCP Student in an Organized Health Care Education/Training Program; Visit Provider Internal Medicine
DX: I13.0 Hypertensive heart and chronic kidney disease with heart failure and stage 1 through stage 4 chronic kidney disease, or unspecified chronic kidney disease (principal); I21.A1 Myocardial infarction type 2; I48.20 Chronic atrial fibrillation, unspecified; I50.42 Chronic combined systolic (congestive) and diastolic (congestive) heart failure; N17.9 Acute kidney failure, unspecified; I47.2 Ventricular tachycardia; I42.8 Other cardiomyopathies; N18.30 Chronic kidney disease, stage 3 unspecified; E78.5 Hyperlipidemia, unspecified; E11.22 Type 2 diabetes mellitus with diabetic chronic kidney disease; G47.33 Obstructive sleep apnea (adult) (pediatric); M19.90 Unspecified osteoarthritis, unspecified site; Z79.4 Long term (current) use of insulin; Z95.810 Presence of automatic (implantable) cardiac defibrillator; Z95.2 Presence of prosthetic heart valve; Z86.73 Personal history of transient ischemic attack (TIA), and cerebral infarction without residual deficits
CPT/HCPCS: 36415; 36600; 71045; 80048; 80076; 81001; 82375; 82805; 82948; 83036; 83050; 83605; 83735; 83880; 84100; 84484; 85025; 85610; 85730; 86140; 87040; 87077; 87086; 87088; 87186; 93005; 93970; 96374; 96375; 96376; 99285; A9270; C8929; G0378; J1815; J1940; Q9957

== ENCOUNTER 2023-06-26 13:47 | Emergency (ER) | payer OTHER, SELFPAY ==
--- NOTE | ~2023-06-26 | XR_ITS ---
EXAMINATION: XR hand RT min 3V DATE: 06/26/2023 15:30 INDICATION: Right hand pain. Fall. TECHNIQUE: 3 views of right hand were obtained. COMPARISON: None. FINDINGS: Bone alignment is normal. No fracture. There is mild osteoarthritis of first carpometacarpa l joint, triscaphe joint, first-fourth metacarpophalangeal joints, and most of the interphalangeal fede ints. IMPRESSION: 1. Mild polyarticular osteoarthritis. Reviewed, dictated and finalized at location E. NDARY MARKET MANAGER
--- NOTE | ~2023-06-26 | CT_ITS ---
EXAMINATION: CT brain wo con DATE: 06/26/2023 15:16 INDICATION: Head injury. TECHNIQUE: Computed tomography (CT) of the head was performed without intravenous contrast. The mA wa s adjusted according to patient size. Iterative reconstruction technique was employed. The dose-lengt h product was 756.67 mGy-cm. COMPARISON: Head CT 03/30/2018, 03/21/05 FINDINGS: There are small old infarcts in the cerebellum bilaterally. There are scattered areas of lo w attenuation in the cerebral white matter, which is within normal limits for the patient's age. The ventricles are normal in size. There are likely changes of left ocular lens replacement surgery. Ther e is mild mucosal thickening in the paranasal sinuses. The mastoid air cells are normal. There is an 11 x 12 mm mass in right parotid gland. IMPRESSION: 1. 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 2. 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 The differential diagnosis includes reactive lymphadenopathy, benign mix ed tumor, Warthin tumor, and less likely primary malignancy. Reviewed, dictated and finalized at location E. ATING ROOM REGISTERED NURSE IMPRESSION: 1. 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 2. 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 The differential diagnosis includes reactive lymph adenopathy, benign mixed tumor, Warthin tumor, and less likely primary malignan cy.
--- NOTE | ~2023-06-26 | XR_ITS ---
EXAMINATION: XR chest 2V DATE: 06/26/2023 15:30 INDICATION: Fall. TECHNIQUE: Frontal and lateral views of the chest were obtained. COMPARISON: Chest single view 04/29/2021 FINDINGS: There is no pneumonia, pleural effusion, or pneumothorax. Cardiomegaly is noted. There are changes of heart valve replacement. There is a left chest pacer with leads in right atrium, right musa tricle, and coronary sinus. IMPRESSION: 1. Cardiomegaly. Reviewed, dictated and finalized at location E. AY CAR REPAIRER IMPRESSION: 1. Cardiomegaly.
--- NOTE | ~2023-06-26 | CT_ITS ---
EXAMINATION: CT facial & cervical spine wo DATE: 06/26/2023 15:17 INDICATION: Head injury. TECHNIQUE: Computed tomography (CT) of the maxillofacial region and cervical spine was performed with out intravenous contrast. Automated exposure control and iterative reconstruction technique were empl oyed. The dose-length product was 568.93 mGy-cm. COMPARISON: None FINDINGS: MAXILLOFACIAL CT: There are likely changes of left ocular lens replacement surgery. There is rightward deviation of the nasal septum. There is mild mucosal thickening in the paranasal sinuses. The mastoid air cells are n ormal. CERVICAL SPINE CT: There is 2 mm anterolisthesis of C4 on C5. There is 6 degrees dextrocurvature of cervical spine. Ther e is mild chronic height loss of T2 and T3 vertebral bodies. There is severely decreased disc height at C3-C4, mildly decreased disc height at C4-C5, severely decreased disc height at C5-C6, and moderat fernando decreased disc height at C6-C7. There is interbody fusion at C5-C6. The following disc levels are specifically discussed: C2-C3: There is mild right and severe left uncovertebral joint osteoarthritis. There is severe bilate ral facet joint osteoarthritis. There is moderate left neural foraminal stenosis. There is no central canal stenosis. C3-C4: There is severe bilateral uncovertebral joint osteoarthritis. There is moderate bilateral face t joint osteoarthritis. There is severe bilateral neural foraminal stenosis. There is moderate centra l canal stenosis. C4-C5: There is mild bilateral uncovertebral joint osteoarthritis. There is severe bilateral facet fede int osteoarthritis. There is mild bilateral neural foraminal stenosis. There is no central canal sten osis. C5-C6: There is severe bilateral uncovertebral joint hypertrophy. There is mild bilateral facet joint osteoarthritis. There is severe right and mild left neural foraminal stenosis. There is mild central canal stenosis. C6-C7: There is severe bilateral uncovertebral joint osteoarthritis. There is mild bilateral facet fede int osteoarthritis. There is mild right and moderate left neural foraminal stenosis. There is mild ce ntral canal stenosis. C7-T1: There is no uncovertebral joint osteoarthritis. There is moderate severe left facet joint oste oarthritis. There is mild bilateral neural foraminal stenosis. There is no central canal stenosis. IMPRESSION: 1. No fracture. 2. Severe cervical spondylosis. Reviewed, dictated and finalized at location E. OR CLINICIAN
[2023-06-26 14:38] VITALS: BP 103/71; PULSE 60; RESP 18; TEMP 36.6; O2SAT 95
--- NOTE | 2023-06-26 14:54 | ED.FALL ---
HPI - Fall General Chief Complaint: Fall Stated Complaint: fell Time Seen by Provider: 06/26/23 14:53 History of Present Illness HPI Narrative: Patient is a 73-year-old male with history of CHF, AFib on Eliquis and metoprolol here after a fall. He states that he was leaving [employer] and stepped over a curb, walking through some of their landscaping rocks when he slipped and fell landing down onto his face. He did attempt to catch himself with his hands. He did not remember losing consciousness. Daughter did not see it happen but saw him immediately afterwards lying on the ground and noted that some of the rocks seem to have been pushed out of place likely by his shoe. Patient notes that he just felt his legs give out and he fell to the ground. Denies any prodromal chest pain or shortness of breath. He was initially evaluated by EMS, refused transport. Daughter notes that there was a large amount of blood on the ground. They do believe that his nose appears to be more cardiac than usual and he is having some difficulty breathing out of his nares. In addition to his facial pain he is complaining of some pain in his right hand between his 4th and 5th finger. He is unsure of when his last tetanus shot was. He is additionally complaining of some chronic back pain which does not seem to be changed from baseline. Of note, patient has been struggling with a cough over the last few weeks with is persistently improving. Related Data Home Medications Medication Instructions Recorded Confirmed insulin glargine 100 unit/mL (3 38 unit subcut HS 09/18/19 04/29/21 mL) subcutaneous pen (Lantus Solostar U-100 Insulin) simvastatin 20 mg tablet 20 mg PO HS 09/18/19 04/29/21 aspirin 81 mg tablet,delayed 81 mg PO HS 11/09/19 04/29/21 release hydrocodone 10 mg-acetaminophen 1 tablet PO Q6H PRN Pain (Scale 11/09/19 04/29/21 325 mg tablet Score 7-10) dapagliflozin propanediol 5 mg 5 mg PO QAM 04/29/21 04/29/21 tablet (Farxiga) metoprolol succinate 50 mg 50 mg PO HS 04/29/21 04/29/21 tablet,extended release 24 hr Allergies Allergy/AdvReac Type Severity Reaction Status Date / Time No Known Allergies Allergy Verified 11/23/19 18:00 Review of Systems Review of Systems: All systems reviewed & are unremarkable except as noted in HPI and below [facility] Past Medical History Medical History (Updated 06/26/23 @ 16:21 by Hien Avina MD) Arthritis Atrial fibrillation Back pain Cardiomyopathy Left ventricular chamber dimension is severely enlarged. Left ventricular systolic function is severely reduced, estimated at 25-30%. The left ventricular diastolic function is grade III diastolic dysfunction. Akinetic basal inferior wall. Left atrial chamber dimension is severely enlarged. Right atrial chamber dimension is severely enlarged. There is mild eccentric aortic valve regurgitation which may underestimate severity. Chronic kidney disease, stage 3 Baseline creatinine around 1.5-1.9 Combined systolic and diastolic congestive heart failure New diagnosis August 2019 with EF 25-30% and grade 3 diastolic dysfunction CVA (cerebral vascular accident) Per patient however the patient had MRI March 2018 which demonstrated no evidence of prior infarct only chronic small-vessel ischemic disease Diabetes Essential hypertension Hyperlipidemia Mitral valve disorder The mitral valve has thickened leaflets. There is mild mitral valve regurgitation. The mitral valve annulus is mildly calcified. 1.1 x 0.6 cm fixed, circumscribed calcified echodensity on the atrial side of the anterior mitral valve leaflet unable to be further characterized. Differential includes calcified sub mitral apparatus, vegetation, mass unlikely thrombus. Clinical correlation advised. Consider EDGAR if clinically indicated. There is mild tricuspid valve regurgitation. From echocardiogram August 2019 Moderate pulmonary arterial systolic hypertension RVSP of 40
--- NOTE | 2023-06-26 15:05 | ECG_ITS ---
Measurements Intervals [place] Rate: 92 P: [place]: 0 QRS: -57 QRSD: 156 T: -26 QT: 439 QTc: 544 Interpretive Statements ELECTRONIC VENTRICULAR PACEMAKER WITH INHIBITION UNDERLYING ATRIAL FIBRILLATION VENTRICULAR PREMATURE COMPLEXES LEFT BUNDLE BRANCH BLOCK NO FURTHER INTERPRETATION IS POSSIBLE ABNORMAL ECG COMPARED TO ECG 04/30/2021 17:30:54 NO SIGNIFICANT CHANGES Electronically Signed On 06-26-2023 16:15:08 TEXTILE MACHINERY SALES REPRESENTATIVE by Roberto Mcmahan D.O.
--- NOTE | 2023-06-26 15:16 | PC.NURSE ---
Pt to CT scan & XRAY via stretcher at this time.
[2023-06-26 15:18] LABS: Hematocrit 46.4 % (42.0-52.0); Hemoglobin 14.8 g/dL (14.0-18.0); Mean Corpuscular HGB Conc 31.9 g/dl (32-36); Mean Corpuscular Hemoglobin 32.8 pg (26-34); Mean Corpuscular Volume 102.9 fl (80-100); Platelet Count Result 142 k/mm3 (150-375); Red Blood Count 4.51 M/mm3 (4.6-6.20); Red Cell Distribution Width 15.3 % (11.5-14.5); White Blood Count 12.4 K/mm3 (4.5-10.0)
[2023-06-26 15:31] LABS: Alanine Aminotransferase 26 U/L (6-50); Albumin Level 3.9 g/dL (3.5-5.1); Alkaline Phosphatase 87 U/L (38-126); Anion Gap 11 mmol/L (8-16); Aspartate Amino Transferase 27 U/L (17-59); Bilirubin,Total 1.6 mg/dL (0.2-1.3); Blood Urea Nitrogen 43 mg/dL (9-20); Calcium 8.9 mg/dL (8.4-10.2); Carbon Dioxide 23 mmol/L (22-30); Chloride 105 mmol/L (98-107); Estimated Glomerular Filt Rate 50; Glucose 274 mg/dL (65-110); Potassium 4.4 mmol/L (3.4-5.0); Sodium 139 mmol/L (137-145)
[2023-06-26] MEDS: HYDROcodone/acetaminophen (*CRX) 5-325 MG TABLET 1 TAB PO (15:32)
[2023-06-26] MEDS: TETANUS,DIPHTHERIA,AC PERTUSSIS ADULT (0.5 ML) BOOSTRIX IM (15:32)
[2023-06-26 15:36] VITALS: BP 122/88; PULSE 95; RESP 16; O2SAT 99
[2023-06-26 15:38] LABS: Band Neutrophils Percent 9 % (0-6); Basophils Absolute Manual 0.12 K/mm3 (0.0-0.1); Basophils Percent Manual 1 % (0-1); Eosinophils Absolute Manual 0.24 K/mm3 (0.02-0.5); Eosinophils Percent Manual 2 % (0-4); Lymphocytes Absolute Manual 0.37 K/mm3 (1.1-4.5); Monocytes Absolute Manual 0.24 K/mm3 (0.1-0.90); Monocytes Percent Manual 2 % (3-9); Neutrophils Percent Manual 83 % (46-73); Total Cells Counted 100
[2023-06-26 15:39] LABS: Macrocytosis 1+ (NORMAL); Ovalocytes 1+ (NORMAL); Schistocytes None Seen (NORMAL)
[2023-06-26 15:51] LABS: NT Pro B Type Natriuretic Pept 7300 pg/mL (19.9-100); Troponin I 0.074 ng/mL (0.000-0.034)
[2023-06-26 16:26] LABS: Influenza A QL RT-PCR Negative (Negative); Influenza B QL RT-PCR Negative (Negative); RSV RNA, RT-PCR Negative (Negative); SARS-CoV-2 RNA PCR Negative (Negative)
[2023-06-26 16:32] VITALS: BP 105/83; PULSE 94; RESP 15; O2SAT 95
[2023-06-26 17:10] VITALS: BP 105/83; PULSE 89; RESP 22; O2SAT 98
--- NOTE | 2023-06-26 18:11 | ECG_ITS ---
Measurements Intervals [place] Rate: 86 P: [place]: 0 QRS: -11 QRSD: 157 T: 23 QT: 432 QTc: 519 Interpretive Statements ELECTRONIC VENTRICULAR PACEMAKER WITH INHIBITION VENTRICULAR PREMATURE COMPLEXES UNDERLYING ATRIAL FIBRILLATION LEFT BUNDLE BRANCH BLOCK NO FURTHER INTERPRETATION IS POSSIBLE ABNORMAL ECG COMPARED TO ECG 06/26/2023 15:42:48 NO SIGNIFICANT CHANGES Electronically Signed On 06-26-2023 18:57:14 PHYSICIAN'S AIDE by Roberto Mcmahan D.O.
[2023-06-26 18:16] VITALS: BP 100/83; PULSE 88; RESP 24; O2SAT 95
[2023-06-26 18:59] LABS: Troponin I 0.078 ng/mL (0.000-0.034)
[2023-06-26 19:41] VITALS: BP 118/68; PULSE 113; RESP 15; O2SAT 97
== END 2023-06-26 19:42 | disposition home or self-care (01) ==
PROVIDERS: Emergency Provider Student in an Organized Health Care Education/Training Program; PCP Student in an Organized Health Care Education/Training Program
DX: S00.31XA Abrasion of nose, initial encounter (principal); S60.221A Contusion of right hand, initial encounter; K11.8 Other diseases of salivary glands; Z23 Encounter for immunization; Z20.822 Contact with and (suspected) exposure to COVID-19; I48.91 Unspecified atrial fibrillation; I42.9 Cardiomyopathy, unspecified; I11.0 Hypertensive heart disease with heart failure; I50.40 Unspecified combined systolic (congestive) and diastolic (congestive) heart failure; I34.1 Nonrheumatic mitral (valve) prolapse; I27.21 Secondary pulmonary arterial hypertension; E78.5 Hyperlipidemia, unspecified; G47.33 Obstructive sleep apnea (adult) (pediatric); M19.90 Unspecified osteoarthritis, unspecified site; Z95.810 Presence of automatic (implantable) cardiac defibrillator; Z95.2 Presence of prosthetic heart valve; Z96.1 Presence of intraocular lens; Z86.73 Personal history of transient ischemic attack (TIA), and cerebral infarction without residual deficits; Z98.42 Cataract extraction status, left eye; Z98.41 Cataract extraction status, right eye; Z79.01 Long term (current) use of anticoagulants; Z79.4 Long term (current) use of insulin; Z79.82 Long term (current) use of aspirin; I51.7 Cardiomegaly; I49.3 Ventricular premature depolarization; I44.7 Left bundle-branch block, unspecified; M18.9 Osteoarthritis of first carpometacarpal joint, unspecified; M47.812 Spondylosis without myelopathy or radiculopathy, cervical region; M19.041 Primary osteoarthritis, right hand; M19.031 Primary osteoarthritis, right wrist; W01.0XXA Fall on same level from slipping, tripping and stumbling without subsequent striking against object, initial encounter
CPT/HCPCS: 36415; 70450; 70486; 71046; 72125; 73130; 80053; 83880; 84484; 85025; 87637; 90471; 90715; 93005; 99284; A9270